=== PATIENT | female | born 1960 | race Caucasian/White ===

== ENCOUNTER → 2017-07-31 08:39 | Outpatient (CLI) | payer OTHER, SELFPAY | PROVIDERS: Family Provider Family Medicine; PCP Family Medicine; Visit Provider Nurse Practitioner Adult Health | DX: R07.9 Chest pain, unspecified (principal); R94.31 Abnormal electrocardiogram [ECG] [EKG] | CPT/HCPCS: 93225; 93226 ==

== ENCOUNTER → 2017-10-02 17:16 | Outpatient (CLI) | payer OTHER, SELFPAY ==
[2017-10-02 18:06] LABS: Ferritin 119 ng/mL (8-252)
== END ==
PROVIDERS: Family Provider Family Medicine; PCP Family Medicine; Visit Provider Internal Medicine Pulmonary Disease
DX: G25.81 Restless legs syndrome (principal); D64.9 Anemia, unspecified
CPT/HCPCS: 36415; 82728

== ENCOUNTER 2018-06-27 10:46 | Observation (INO) | payer OTHER, SELFPAY ==
[2018-06-27 10:47] VITALS: BP 119/83; PULSE 85; RESP 18; TEMP 37; O2SAT 100; BMI 39.4
--- NOTE | 2018-06-27 11:02 | CT_ITS ---
STUDY: CT ABDOMEN AND PELVIS WITH CONTRAST REASON FOR EXAM: Female, 57 years old. Abdominal pain. Fever. History of diverticulitis. RADIATION DOSAGE (If Supplied By Facility): CTDIvol = ( 16.87 ) mGy, DLP = ( 1195.9 ) mGycm TECHNIQUE: Transaxial images were obtained from the dome of the diaphragm to the symphysis pubis without oral contrast. 100 ml of Isovue 300 contrast was administered. Sagittal and coronal images were reconstructed. Individualized dose optimization techniques were used for this CT. COMPARISON: None. FINDINGS: Minimal degree of bibasilar atelectasis. The visualized portions of the heart are within normal limits. There is decreased attenuation of the liver consistent with steatosis. There is a 3.8 cm x 3.2 cm cyst in the left lobe of liver. Scattered subcentimeter cysts are also seen in the right lobe of the liver. Normal gallbladder and extrahepatic biliary system. Normal spleen. Normal pancreas. There is a small, circumscribed, smooth, low attenuation left adrenal mass, consistent with an adrenal adenoma. This measures 1.6 cm x 2.5 cm. Normal right adrenal gland. There is a 1.9 cm x 2.5 cm cyst in the posterior midportion of the left kidney. Normal left kidney. There is a small hiatal hernia. Normal small intestine. There is diverticulosis, with thickening of the colon wall, and pericolonic inflammation changes consistent with acute diverticulitis. The appendix is visualized and appears normal. Normal abdominal aorta. Normal inferior vena cava. There is borderline retroperitoneal lymphadenopathy with enlarged nodes no greater than 10mm in the short axis diameter. Normal urinary bladder. There is absence of the uterus consistent with a prior hysterectomy. Normal abdominal wall. Small bilateral benign-appearing axillary lymph nodes. Disc space narrowing and degeneration at the L5-S1 level. CT/Abdomen/Pelvis W IV Cont ONLY IMPRESSION: Fatty infiltration of the liver. Hepatic cysts. Findings in keeping with acute noncomplicated sigmoid diverticulitis. Findings suggestive of a left adrenal adenoma. Electronically Signed: Mateus Valentino MD at 13:38 EST , Service support ,
[2018-06-27] MEDS: 0.9% Normal Saline 1,000 ML 1000 ML IV (11:49)
[2018-06-27] MEDS: Morphine 4 MG/ML Syringe IV (11:49)
[2018-06-27] MEDS: Ondansetron 4 MG/2 ML Vial IV ×2 (11:49→15:26)
[2018-06-27 12:23] LABS: Absolute Lymphocyte Count 0.98 X10^3/ul (0.83-4.51); Absolute Neutrophil Count 6.2 X10^3/uL (2.0-7.7); Basophil# 0.02 X10^3/uL; Basophil% 0.3 % (0-1); Eosinophil# 0.12 X10^3/uL; Eosinophils% 1.5 % (0-5); Hematocrit 38.2 % (37-47); Hemoglobin 12.5 g/dl (12.0-15.0); Lymphocyte # 0.98 X10^3/ul (4.0); Lymphocyte % 12.5 % (19-41); Mean Corp Hgb Conc 32.7 g/gl (32-36); Mean Corpuscular Hgb 31.6 pg (27.0-32.0); Mean Corpuscular Volume 96.7 fL (81-99); Mean Platelet Vol. 11.6 fl (6.2-12.0); Monocyte# 0.56 X10^3/uL; Monocyte% 7.1 % (0-10); Neutrophil # 6.16 X10^3/uL (2.7-7.7); Neutrophil % 78.3 % (47-70); Platelet Count 175 K/mm3 (150-450); RBC Distribution Width CV 12.1 % (11.6-14.6); RBC Distribution Width SD 41.6 fl (35.1-43.9); Red Blood Count 3.95 M/mm3 (4.2-5.4); White Blood Count 7.9 K/mm3 (4.4-11.0)
[2018-06-27 12:27] LABS: Anion Gap 11 (5-15); BUN 11 mg/dL (7-18); BUN/Creat Ratio 18.4 RATIO (10-20); Calcium,Total 8.8 mg/dL (8.5-10.1); Chloride 108 mmol/L (98-107); EST Glomerular Filtration Rate 110 mL/min (>60); Est Glom Filt Rate - Afr Amer 133 mL/min (>60); Estimated Creatinine Clearance 86.61 ml/min; Glucose 96 mg/dL (74-106); Potassium 3.6 mmol/L (3.5-5.1); Sodium Level 143 mmol/L (136-145)
[2018-06-27 12:43] LABS: POSITIVE COUNT NO; POSITIVE DIFFERENTIAL NO; POSITIVE MORPHOLOGY NO
[2018-06-27 13:19] VITALS: RESP 16
--- NOTE | 2018-06-27 14:12 | ED.VISSUMM ---
- ER Visit Summary Date of Service: 06/27/18 Chief Complaint: Sent to ER because of worsening symptoms by PCP History of Present Illness: The patient is a 57 F who was prescribed Augmentin and took 3 doses of Augmentin for treatment of acute diverticulitis. She had episode of diverticulitis 4 months ago. She does report fever to 100.3 this morning. She does report nausea. She states earlier this week she had episode of diarrhea. She has had no further diarrhea. She denies black, maroon or blood in her stool. She denies hematemesis. She does report nausea. She denies headache, anesthesia, paresthesia or motor weakness. She denies ocular, visual or auditory symptoms. She denies cardiac respiratory symptoms. She does complain of pressure with urination. She denies paresthesia, anesthesia or motor weakness. She has a history of hypertension. She also reports allergy to metronidazole. Physical Examination: Vital signs noted. She is afebrile. She is tachycardic at 115. BMI 39.5. Head is atraumatic normocephalic. Pupils are equal round reactive. Extraocular muscles are intact. TMs are pearly white with landmarks noted. Nares patent with no drainage. Posterior pharynx without erythema or exudate. Uvula is midline. Mucosa is dry. There is no dysphonia or dysphasia. Trachea is midline. There is no stridor with auscultation of the neck. Heart is regular without murmur, gallop or rub. S1 and S2 are normal. Lungs are clear to auscultation with good movement of air bilaterally. Abdomen is remarkable for peritonitis. She has tenderness, guarding and rebound tenderness. Bowel sounds are diminished. Point of maximal tenderness left lower quadrant there is no CVA tenderness noted. There is no dermatologic lesions noted. Neuro exam is nonfocal. Please read note for complete detail. Test Results: CBC and BMP are unremarkable. CT of the abdomen reveals an uncomplicated acute sigmoid diverticulitis. There is also evidence of a probable adrenal adenoma. Emergency Department Course and Treatment: IV was established. She was treated with 4.5 g of Zosyn IV piggyback. She was given Zosyn for her nausea. He also received a fluid bolus. Because of peritonitis CT with IV contrast was obtained to assess for abscess. And to rule out perforation. Treatment Plan: IV fluids, IV antibiotics and admission for failed outpatient therapy Disposition: Medical surgical unit Impression: Acute sigmoid diverticulitis failed outpatient therapy History of hypertension This note was generated with [employer] dictation software. It may contain incorrect words, spelling, and punctuation that were not noted in review of the chart prior to signing ED Disposition - Plan for ED Patient: Referrals: Vaughn Mcneil MD [Primary Care Provider] -
[2018-06-27 14:26] VITALS: BMI 39.5
--- NOTE | 2018-06-27 14:27 | PCM.HP.STD ---
Problem List (1) GERD (gastroesophageal reflux disease) Status: Chronic Qualifiers: Esophagitis presence: esophagitis presence not specified Qualified Code(s): K21.9 - Gastro-esophageal reflux disease without esophagitis (2) Hyperlipemia Status: Chronic Qualifiers: Hyperlipidemia type: unspecified Qualified Code(s): E78.5 - Hyperlipidemia, unspecified (3) Carpal tunnel syndrome Status: Chronic Qualifiers: Laterality: unspecified laterality Qualified Code(s): G56.00 - Carpal tunnel syndrome, unspecified upper limb (4) Benign essential hypertension Status: Chronic (5) COPD (chronic obstructive pulmonary disease) Status: Chronic Qualifiers: Emphysema type: unspecified History of Present Illness Date of Admission: 06/27/18 Chief Complaint: Abdominal pain - 2 days The patient is a 57 year old F with PMHx of hypertension, COPD, not on oxygen, morbid obesity who comes in with complaints of abdominal discomfort which started 1 day before presentation and getting worse. She recently had a history of diverticulitis, treated 4 months ago, followed up with a primary care doctor. Patient went to see her primary care doctor for abdominal discomfort of one day duration. After the diarrhea she noticed blood when she wipes herself. This was preceded by diarrhea 1 week prior to presentation. The day after the diarrhea stopped, she started having abdominal discomfort, felt like bloating, radiated all over her abdomen and into her back. She reports that her temperature was elevated at 100.4F, he was prescribed Augmentin. She has been able to take only 2 doses. She continues to have nausea, worsening fever, reported fever of 100.3 this morning. She denied any chest pain or dizziness or palpitations. Temperature 98.6 F, heart rate 85, blood pressure 119/83, respiratory rate 18, SPO2 100% on room air. Admitting lab showed WBC 7.9, HB 12.5, Plt 175, BMP is unremarkable. CT scan of abdomen and pelvis shows liver steatosis, 3.8 cm x 3.2 cm liver cyst, multiple other liver cysts, adrenal adenoma, kidney cyst, acute sigmoid diverticulitis. Past Medical History Past Medical History (Chronic Problems): Chronic Problems (Last Updated 04/27/17 @ 15:58 by Arlette Jarvis) GERD (gastroesophageal reflux disease) (Chronic) Hyperlipemia (Chronic) COPD (chronic obstructive pulmonary disease) (Chronic) Carpal tunnel syndrome (Chronic) Benign essential hypertension (Chronic) Medical History: Medical History (Last Updated 04/27/17 @ 15:58 by Arlette Jarvis) GERD (gastroesophageal reflux disease) (Acute) K21.9 GI problem (Acute) R19.8 Hyperlipemia (Acute) E78.5 COPD (chronic obstructive pulmonary disease) (Acute) J44.9 Carpal tunnel syndrome (Acute) G56.00 Hx of thyroid cancer (Acute) Z85.850 2013 Benign essential hypertension (Chronic) I10 Allergies metronidazole [From Flagyl] Adverse Reaction (Verified 06/27/18 10:49) Nausea/Vom/Diarrhea Home Medications: Ambulatory Orders Medication Instructions Recorded Omeprazole [Prilosec] 20 mg PO DAILY 01/09/16 cholecalciferol (vitamin D3) 2,000 2,000 unit PO ONCE 04/27/17 unit capsule ramipril 10 mg capsule 10 mg PO DAILY cap 04/27/17 Atorvastatin Calcium [Lipitor] 20 mg PO DAILY 06/27/18 Hydrochlorothiazide [Hctz] 25 mg PO DAILY 06/27/18 Levothyroxine [Synthroid] 75 mcg PO WE 06/27/18 levothyroxine 150 mcg capsule 150 mcg PO SUMOTUTHFRSA 06/27/18 Surgical History: Surgical History (Last Updated 04/27/17 @ 16:35 by Arlette Jarvis) S/P excision of lipoma (Acute) Z98.890, Z86.018 Abdominal 02/2017 History of esophagogastroduodenoscopy (EGD) (Acute) Z98.890 2010 S/P colonoscopy (Acute) Z98.890 2010 S/P endometrial ablation (Acute) Z98.890 S/P (Acute) Z98.891 S/P thyroidectomy (Acute) E89.0 S/P hysterectomy (Acute) Z90.710 S/P appendectomy (Acute) Z90.49 Surgical History: appendectomy, hysterectomy, - - Post thyroidectomy, status post , status post endometrial ablation, status post colonoscopy, status post EGD, status post excision of lipoma Psychiatric History: No pertinent psych hx 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 Lives: Spouse/ Significant Other Smoking Status: Former smoker Tobacco Use: Non-smoker Alcohol: None Drugs: None - *Family History Maternal Family History: Family History (Last Updated 04/27/17 @ 16:53 by Arlette Jarvis) Mother Arthritis Breast cancer Heart disease Father Heart disease Hypertension Cancer CVA (cerebral vascular accident) Hyperlipemia Lung cancer History Items: Cancer - breast, Heart Disease Paternal Family History: Family History (Last Updated 04/27/17 @ 16:53 by Arlette Jarvis) Mother Arthritis Breast cancer Heart disease Father Heart disease Hypertension Cancer CVA (cerebral vascular accident) Hyperlipemia Lung cancer History Items: Heart Disease, Hypertension, Stroke Review of Systems Constitutional: Denies: Anorexia, Chills, Fever, Malaise, Weakness, Weight Change, Fatigue Eyes: Denies: Blurred vision, Cataracts, Conjunctivae Inflammation, Pain, Redness HEENT: Denies: Head Aches, Sinus Congestion, Sinus Drainage, Sore Throat Cardiovascular: Denies: Chest Pain, Claudication, Orthopnea, Palpitations, Paroxysmal Noc. Dyspnea Respiratory: Denies: Cough, Shortness of breath at rest, Shortness of breath upon exertion, Sputum production Gastrointestinal: Reports: Abdominal Pain, Nausea. Denies: Constipation, Diarrhea, Dyspepsia, Hematemesis, Hematochezia, Vomiting Genitourinary: Denies: Dysuria, Frequency, Incontinence Musculoskeletal: Denies: Joint Pain, Joint stiffness, Joint swelling, Joint Tenderness Skin: Denies: Dryness, Pruritis, Rash, Wounds Neurological: Denies: Difficulty swallowing, Focal weakness, Numbness, Tingling Psychiatric: Denies: Anxiety, Depression, Homicidal Ideations, Suicidal Ideations Hematologic/ Lymphatic: Denies: Easy Bruising, Easy Bleeding VTE Information - Inpt Only VTE Present on Admission: No VTE Pharm Prophylaxis ordered?: Yes - Physical Exam General: Alert, Oriented x3, Cooperative, No apparent distress, - - obese, not pale or jaundiced HEENT: Atraumatic, PERRLA, EOMI, Normocephalic Oral: Moist Mucosa Neck: Supple, No JVD, Negative Carotid Bruits Lungs: Clear to auscultation, Normal air movement Cardiovascular: Regular rate, Regular Rhythm, Normal S1, Normal S2, No murmurs Abdomen: Bowel Sounds Present, Soft, Non-Distended, No Hepato-splenomegaly, Tender - over the left lower quadrant, lower abdomen Extremities: No edema Skin: No rashes, No breakdown Musculoskeletal: No Tenderness to Palpation of Joints or Extremities Lymphatic: No Cervical, Supraclavicular, or Inguinal Adenopathy Neurological: Cranial nerves II-XII grossly intact, Neuro grossly intact Psych/Mental Status: Normal Affect, Appropriate Vital Signs Temp Pulse Resp BP Pulse Ox 98.6 F 85 16 119/83 H 100 06/27/18 10:47 06/27/18 10:47 06/27/18 13:19 06/27/18 10:47 06/27/18 10:47 Oxygen Delivery Method Room Air Weight: 101.151 kg Body Mass Index (BMI) 39.4 Laboratory Tests Past 24 Hrs 06/27/18 06/27/18 11:55 11:55 WBC 7.9 RBC 3.95 L Hgb 12.5 Hct 38.2 MCV 96.7 MCH 31.6 MCHC 32.7 RDW 12.1 RDW Differential 41.6 Plt Count 175 MPV 11.6 Immature Gran % (Auto) 0.300 Neut % (Auto) 78.3 H Lymph % (Auto) 12.5 L [place] % (Auto) 7.1 Eos % (Auto) 1.5 Baso % (Auto) 0.3 Absolute Neuts (auto) 6.2 Absolute Lymphs (auto) 0.98 Total Counted Not Reportable Sodium 143 Potassium 3.6 Chloride 108 H Carbon Dioxide 24.0 Anion Gap 11 BUN 11 Creatinine 0.60 Estim Creat Clear Calc 86.61 Est GFR (MDRD) Af Amer 133 Est GFR (MDRD) Non-Af 110 BUN/Creatinine Ratio 18.4 Glucose 96 Calcium 8.8 Assessment/Plan All Active Problems (Last Updated 04/27/17 @ 15:58 by Arlette Jarvis) S/P excision of lipoma (Acute) History of esophagogastroduodenoscopy (EGD) (Acute) S/P colonoscopy (Acute) S/P endometrial ablation (Acute) S/P (Acute) S/P thyroidectomy (Acute) S/P hysterectomy (Acute) S/P appendectomy (Acute) GI problem (Acute) Hx of thyroid cancer (Acute) 57 year old F with PMHx of hypertension, COPD, not on oxygen, morbid obesity, history of diverticulitis, who comes in with complaints of abdominal discomfort which started 1 day before presentation and getting worse. 1. Acute sigmoid diverticulitis, failed outpatient therapy, unable to keep food down, stable vitals, no leukocytosis Plan: Admit to [facility] floor, IV fluids, n.p.o., advance diet as can be tolerated, IV Cipro, IV Flagyl, gentle IV fluids, pain control with Tylenol, tramadol as needed, morphine as needed 2. Hypertension, controlled, on ramipril and hydrochlorothiazide, continue same 3. Hypothyroidism, levothyroxine, continue same 4. Hyperlipidemia, on statin, continue same 5. GERD, on PPI 6. Morbid obesity, BMI 40.0, diet and exercise recommended 7. DVT prophylaxis -Lovenox SC Code Visit Inpatient E&M: 82443 Init Hosp L2
[2018-06-27 15:27] VITALS: BP 118/69; PULSE 69; PULSE 75; RESP 17; RESP 18; O2SAT 100; O2SAT 110
[2018-06-27 15:39] VITALS: BP 151/87; PULSE 75; RESP 16; TEMP 37.1; O2SAT 98
[2018-06-27 15:40] VITALS: BMI 39.9
[2018-06-27] MEDS: 0.9% Normal Saline 1,000 ML 100 ML IV (16:00)
[2018-06-27] MEDS: Acetaminophen 325 MG Tablet 650 MG PO (19:49)
[2018-06-27] MEDS: traMADol 50 MG Tablet PO (20:44)
[2018-06-27 20:46] VITALS: BP 112/58; PULSE 87; RESP 18; TEMP 37.2; O2SAT 94
[2018-06-27] MEDS: Ciprofloxacin 200 MG/100 ML BAG 100 MG IV (21:26)
[2018-06-28] MEDS: 0.9% Normal Saline 1,000 ML 100 ML IV (03:02)
[2018-06-28 03:06] VITALS: BP 104/57; PULSE 71; RESP 18; TEMP 36.9; O2SAT 98
[2018-06-28 06:04] LABS: Absolute Lymphocyte Count 1.18 X10^3/ul (0.83-4.51); Absolute Neutrophil Count 4.5 X10^3/uL (2.0-7.7); Basophil# 0.02 X10^3/uL; Basophil% 0.3 % (0-1); Eosinophil# 0.11 X10^3/uL; Eosinophils% 1.7 % (0-5); Hematocrit 35.5 % (37-47); Hemoglobin 11.6 g/dl (12.0-15.0); Lymphocyte # 1.18 X10^3/ul (4.0); Lymphocyte % 18.7 % (19-41); Mean Corp Hgb Conc 32.7 g/gl (32-36); Mean Corpuscular Volume 97.8 fL (81-99); Mean Platelet Vol. 11.3 fl (6.2-12.0); Monocyte# 0.49 X10^3/uL; Monocyte% 7.8 % (0-10); Neutrophil # 4.51 X10^3/uL (2.7-7.7); Neutrophil % 71.3 % (47-70); Platelet Count 169 K/mm3 (150-450); RBC Distribution Width CV 11.9 % (11.6-14.6); RBC Distribution Width SD 40.7 fl (35.1-43.9); Red Blood Count 3.63 M/mm3 (4.2-5.4); White Blood Count 6.3 K/mm3 (4.4-11.0)
[2018-06-28 06:13] LABS: POSITIVE COUNT NO; POSITIVE DIFFERENTIAL NO; POSITIVE MORPHOLOGY NO
[2018-06-28 06:27] LABS: Anion Gap 9 (5-15); BUN 7 mg/dL (7-18); BUN/Creat Ratio 10.7 RATIO (10-20); Calcium,Total 8.4 mg/dL (8.5-10.1); Chloride 110 mmol/L (98-107); Creatinine, Serum 0.66 mg/dL (0.55-1.02); EST Glomerular Filtration Rate 99 mL/min (>60); Est Glom Filt Rate - Afr Amer 120 mL/min (>60); Estimated Creatinine Clearance 75.28 ml/min; Glucose 106 mg/dL (74-106); Potassium 4.1 mmol/L (3.5-5.1); Sodium Level 143 mmol/L (136-145)
[2018-06-28] MEDS: Levothyroxine 150 MCG Tablet PO (06:28)
[2018-06-28] MEDS: Acetaminophen 325 MG Tablet 650 MG PO (06:28)
[2018-06-28 07:31] VITALS: PULSE 82; RESP 20
[2018-06-28] MEDS: Ipratropium/Albuterol Sulfate 3 ML AMPUL.NEB INHALATION ×2 (07:31→11:09)
[2018-06-28 10:11] VITALS: BP 108/66; PULSE 66; RESP 18; TEMP 36.8; O2SAT 95
[2018-06-28] MEDS: Enoxaparin 40 MG/0.4 ML Syringe SC (10:17)
[2018-06-28] MEDS: Ramipril 10 MG Capsule PO (10:17)
[2018-06-28] MEDS: Pantoprazole Sodium 20 MG Tablet PO (10:20)
[2018-06-28] MEDS: traMADol 50 MG Tablet PO (10:20)
[2018-06-28 11:09] VITALS: PULSE 67; RESP 16
--- NOTE | 2018-06-28 11:12 | DCINST_ITS ---
You will use the following diet at home:: Clear liquid Your food should be the consistency of: Regular Your liquids should be the consistency of: Regular/Thin Discharge Activity: Return to Normal Activity Call your doctor if you observe: Fever of 101 or Higher, Shortness of breath, Dizziness, Chest pain Additional Instructions: She is to complete her course of augmentin given to her by her PCP and she also has Sh[place]ellan ODT that she will continue as needed for nausea Allergies/Adverse Reactions: Allergies metronidazole [From Flagyl] Adverse Reaction (Severe, Verified 06/28/18 00:18) Nausea/Vom/Diarrhea Medications to take at Discharge Omeprazole [Prilosec] 20 mg PO DAILY 01/09/16 cholecalciferol (vitamin D3) 2,000 unit capsule 2,000 unit PO ONCE 04/27/17 ramipril 10 mg capsule 10 mg PO DAILY cap 04/27/17 Atorvastatin Calcium [Lipitor] 20 mg PO DAILY 06/27/18 Hydrochlorothiazide [Hctz] 25 mg PO DAILY 06/27/18 Levothyroxine [Synthroid] 75 mcg PO WE 06/27/18 levothyroxine 150 mcg capsule 150 mcg PO SUMOTUTHFRSA 06/27/18 Primary Care Physician: Vaughn Mcneil MD [Primary Care Provider] - Please follow up with your Primary Care Physician in: 3-5 days Test Results: Test results from this visit will be discussed in further detail at your follow- up appointment, if applicable.
--- NOTE | 2018-06-28 11:13 | PCM.DC.SUM ---
Discharge Date and Diagnosis Date of Admission: 06/27/18 Date of Discharge: 06/28/18 - Secondary Discharge Diagnosis Chronic Problems (Last Updated 04/27/17 @ 15:58 by Arlette Jarvis) GERD (gastroesophageal reflux disease) (Chronic) Hyperlipemia (Chronic) COPD (chronic obstructive pulmonary disease) (Chronic) Carpal tunnel syndrome (Chronic) Benign essential hypertension (Chronic) Hospital Course and Treatment Imaging Results: CT Abd/pelvis: IMPRESSION: Fatty infiltration of the liver. Hepatic cysts. Findings in keeping with acute noncomplicated sigmoid diverticulitis. Findings suggestive of a left adrenal adenoma. Consults: None Operations: None Procedures: None Summary of Care Provided: Per HPI: The patient is a 57 year old F with PMHx of hypertension, COPD, not on oxygen, morbid obesity who comes in with complaints of abdominal discomfort which started 1 day before presentation and getting worse. She recently had a history of diverticulitis, treated 4 months ago, followed up with a primary care doctor. Patient went to see her primary care doctor for abdominal discomfort of one day duration. After the diarrhea she noticed blood when she wipes herself. This was preceded by diarrhea 1 week prior to presentation. The day after the diarrhea stopped, she started having abdominal discomfort, felt like bloating, radiated all over her abdomen and into her back. She reports that her temperature was elevated at 100.4F, he was prescribed Augmentin. She has been able to take only 2 doses. She continues to have nausea, worsening fever, reported fever of 100.3 this morning. She denied any chest pain or dizziness or palpitations. Temperature 98.6 F, heart rate 85, blood pressure 119/83, respiratory rate 18, SPO2 100% on room air. Admitting lab showed WBC 7.9, HB 12.5, Plt 175, BMP is unremarkable. CT scan of abdomen and pelvis shows liver steatosis, 3.8 cm x 3.2 cm liver cyst, multiple other liver cysts, adrenal adenoma, kidney cyst, acute sigmoid diverticulitis. Hospital Course: 1. Acute mild sigmoid [id number] female with her second recurrence of diverticulitis. Symptoms started 1 day prior to admission and she saw her PCP who gave her Augmentin and Zofran. She only took 2 or 3 doses of the Augmentin therefore not qualifying for failed outpatient therapy. She is currently doing well her nausea is under control and she has not had any episode of emesis. She is able to go home to resume her Augmentin and she has Zofran ODT at home. She did receive a dose of Invanz and a dose of Zosyn during her admission here. She is not on Cipro Flagyl because she has an intolerance to Flagyl. She is to follow-up with her primary care physician in 3-5 days. Of note she did not have a leukocytosis or fever during her stay. 2. her other medical diagnoses were evaluated and her home medications were continued where appropriate - Physical Exam General: Alert, Oriented x3, Cooperative, No apparent distress HEENT: Atraumatic, EOMI, Normocephalic Oral: Moist Mucosa Neck: Supple, No JVD, Trachea Midline Lungs: Clear to auscultation, Normal air movement, No rhonchi, No wheeze, No rales Cardiovascular: Regular rate, Regular Rhythm, Normal S1, Normal S2, No murmurs Abdomen: Soft, Non-Distended, No Hepato-splenomegaly, Tender - Mild lower abdomen Extremities: No edema, Capillary Refill Less than 3 Seconds Skin: No rashes, No breakdown Neurological: Neuro grossly intact, Sensory exam intact to light touch and pain Psych/Mental Status: Normal Affect, Appropriate Vital Signs Temp Pulse Resp BP Pulse Ox 98.2 F 66 18 108/66 95 06/28/18 10:11 06/28/18 10:11 06/28/18 10:11 06/28/18 10:11 06/28/18 10:11 Oxygen Delivery Method Room Air Weight: 225 lb 8.526 oz Body Mass Index (BMI) 39.9 Intake and Output for Last 24 Hours 06/26/18 06/27/18 06/28/18 23:59 23:59 23:59 Intake Total 76 / 76 1613 / 1613 Output Total 200 / 200 Balance -124 / -124 1613 / 1613 Laboratory Tests Past 24 Hrs 06/27/18 06/27/18 06/28/18 11:55 11:55 05:36 WBC 7.9 6.3 RBC 3.95 L 3.63 L Hgb 12.5 11.6 L Hct 38.2 35.5 L MCV 96.7 97.8 MCH 31.6 32.0 MCHC 32.7 32.7 RDW 12.1 11.9 RDW Differential 41.6 40.7 Plt Count 175 169 MPV 11.6 11.3 Immature Gran % (Auto) 0.300 0.200 Neut % (Auto) 78.3 H 71.3 H Lymph % (Auto) 12.5 L 18.7 L [place] % (Auto) 7.1 7.8 Eos % (Auto) 1.5 1.7 Baso % (Auto) 0.3 0.3 Absolute Neuts (auto) 6.2 4.5 Absolute Lymphs (auto) 0.98 1.18 Total Counted Not Reportable Not Reportable Sodium 143 Potassium 3.6 Chloride 108 H Carbon Dioxide 24.0 Anion Gap 11 BUN 11 Creatinine 0.60 Estim Creat Clear Calc 86.61 Est GFR (MDRD) Af Amer 133 Est GFR (MDRD) Non-Af 110 BUN/Creatinine Ratio 18.4 Glucose 96 Calcium 8.8 06/28/18 05:36 WBC RBC Hgb Hct MCV MCH MCHC RDW RDW Differential Plt Count MPV Immature Gran % (Auto) Neut % (Auto) Lymph % (Auto) [place] % (Auto) Eos % (Auto) Baso % (Auto) Absolute Neuts (auto) Absolute Lymphs (auto) Total Counted Sodium 143 Potassium 4.1 Chloride 110 H Carbon Dioxide 24.0 Anion Gap 9 BUN 7 Creatinine 0.66 Estim Creat Clear Calc 75.28 Est GFR (MDRD) Af Amer 120 Est GFR (MDRD) Non-Af 99 BUN/Creatinine Ratio 10.7 Glucose 106 Calcium 8.4 L Discharge Activity: Return to Normal Activity Call your doctor if you observe: Fever of 101 or Higher, Shortness of breath, Dizziness, Chest pain Home Medications: Medications to take at Discharge Omeprazole [Prilosec] 20 mg PO DAILY 01/09/16 cholecalciferol (vitamin D3) 2,000 unit capsule 2,000 unit PO ONCE 04/27/17 ramipril 10 mg capsule 10 mg PO DAILY cap 04/27/17 Atorvastatin Calcium [Lipitor] 20 mg PO DAILY 06/27/18 Hydrochlorothiazide [Hctz] 25 mg PO DAILY 06/27/18 Levothyroxine [Synthroid] 75 mcg PO WE 06/27/18 levothyroxine 150 mcg capsule 150 mcg PO SUMOTUTHFRSA 06/27/18 Primary Care Physician: Vaughn Mcneil MD [Primary Care Provider] - Please follow up with your Primary Care Physician in: 3-5 days Disposition: Home Minutes spent on discharge:: 35 Patient Condition:: Good Medical Necessity - Tobacco Use Smoking Status: Former smoker Tobacco Use: Non-smoker Meaningful Use Info Meaningful Use Diagnoses (Choose all that apply): None applicable Code Visit OBSV E&M: 85187 Observation care discharge
[2018-06-28 14:11] VITALS: BP 130/87; PULSE 71; RESP 18; TEMP 36.7; O2SAT 97
== END 2018-06-28 14:20 | disposition home or self-care (01) ==
LOC: ED 11:08 → MS3 15:24
PROVIDERS: Admitting Provider Internal Medicine; Emergency Provider Emergency Medicine; Family Provider Family Medicine; PCP Family Medicine; Visit Provider Family Medicine
DX: K57.32 Diverticulitis of large intestine without perforation or abscess without bleeding (principal); I10 Essential (primary) hypertension; K21.9 Gastro-esophageal reflux disease without esophagitis; E78.5 Hyperlipidemia, unspecified; J44.9 Chronic obstructive pulmonary disease, unspecified; E66.01 Morbid (severe) obesity due to excess calories; E03.9 Hypothyroidism, unspecified; Z79.899 Other long term (current) drug therapy; Z68.41 Body mass index [BMI] 40.0-44.9, adult; Z71.3 Dietary counseling and surveillance; Z85.850 Personal history of malignant neoplasm of thyroid; Z87.891 Personal history of nicotine dependence
CPT/HCPCS: 36415; 74177; 80048; 85025; 94640; 96361; 96365; 96366; 96367; 96372; 96375; 96376; 99218; 99285; J7030; Q9967; A4216; G0378; J0744; J2405

== ENCOUNTER → 2018-07-02 10:51 | Outpatient (CLI) | payer OTHER, SELFPAY ==
[2018-07-02 10:24] VITALS: BMI 39.9
[2018-07-02 12:52] LABS: Free T3 2.3 pg/mL (2.18-3.98); T4 Free Direct 1.39 ng/dL (0.76-1.46)
[2018-07-05 22:38] LABS: Anti-Thyroglobulin AB < 1.0 IU/mL (0.0-0.9); Thyroglobulin, Serum Qt. 0.2 ng/mL (1.5-38.5)
== END ==
PROVIDERS: Family Provider Family Medicine; PCP Family Medicine; Referring Provider Nurse Practitioner; Visit Provider Nurse Practitioner
DX: E03.9 Hypothyroidism, unspecified (principal)
CPT/HCPCS: 36415; 84432; 84439; 84443; 84481; 86800

== ENCOUNTER → 2018-07-04 11:22 | Outpatient (CLI) | payer OTHER, SELFPAY ==
[2018-07-02 10:24] VITALS: BMI 39.9
--- NOTE | 2018-07-04 11:24 | US_ITS ---
STUDY: THYROID ULTRASOUND REASON FOR EXAM: Female, 57 years old. History of thyroid cancer. Thyroidectomy 4 years ago. TECHNIQUE: Ultrasound evaluation of the thyroid was performed with real-time and static bateman-scale imaging. COMPARISON: None. FINDINGS: RIGHT LOBE: The right lobe of the thyroid gland is surgically absent. A 10 x 7 x 7 mm benign-appearing lymph node is seen in the right thyroid bed. LEFT LOBE: The left lobe of the thyroid gland is surgically absent. 2 small benign-appearing lymph nodes are seen in the left thyroid bed. ISTHMUS: The isthmus is not clearly visualized. 2.8 x 1.5 x 0.8 cm lymph node with a fatty hilus is seen in the tissues inferior to the right mandibular gland. US/Thyroid IMPRESSION: 1. Prior thyroidectomy. 2. A few benign-appearing cervical lymph nodes are identified, as noted. Electronically Signed: aKhlil Gunderson MD at 16:49 EST , Service support ,
== END ==
PROVIDERS: Family Provider Family Medicine; PCP Family Medicine; Referring Provider Nurse Practitioner; Visit Provider Nurse Practitioner
DX: E03.9 Hypothyroidism, unspecified (principal); Z85.850 Personal history of malignant neoplasm of thyroid
CPT/HCPCS: 76536

== ENCOUNTER → 2019-02-10 12:16 | Outpatient (CLI) | payer OTHER, SELFPAY ==
[2018-07-02 10:24] VITALS: BMI 39.9
[2019-02-10 14:05] LABS: T4 Free Direct 1.17 ng/dL (0.76-1.46)
[2019-02-12 12:46] LABS: Anti-Thyroglobulin AB < 1.0 IU/mL (0.0-0.9); Thyroglobulin, Serum Qt. 0.2 ng/mL (1.5-38.5)
== END ==
PROVIDERS: Family Provider Family Medicine; PCP Family Medicine; Referring Provider Nurse Practitioner; Visit Provider Nurse Practitioner
DX: Z85.850 Personal history of malignant neoplasm of thyroid (principal)
CPT/HCPCS: 36415; 84432; 84439; 84443; 86800

== ENCOUNTER → 2019-08-12 14:30 | Outpatient (CLI) | payer OTHER, SELFPAY ==
[2019-07-30 16:20] VITALS: BMI 38.9
--- NOTE | 2019-08-12 14:32 | ECHOD_ITS ---
Reason For Study: HTN Procedure This was a 2D Doppler, Color Flow transthoracic echocardiogram. Exam performed in department. Left Ventricle Normal LV size. Left ventricular systolic function is normal. The estimated ejection fraction is 65 %. Stage 2 diastolic dysfunction. No regional wall motion abnormalities noted. Right Ventricle Normal RV size. Normal systolic function. Atria Normal left atrium. Normal right atrium. Mitral Valve Normal mitral valve. Tricuspid Valve Normal tricuspid valve. Mild (1+) tricuspid valve insufficiency. Pulmonary artery systolic pressure is 28 mmHg. Aortic Valve Trisinus/trileaflet aortic valve. Pulmonic Valve Normal pulmonic valve. Great Vessels Normal aortic root. The pulmonary artery is normal size. Normal inferior vena cava. Pericardium/Pleural No pericardial effusion. MMode/2D Measurements & Calculations LVIDd: 4.4 cm IVSd: 0.86 cm Ao root diam: 3.3 cm LVIDs: 2.7 cm LVPWd: 0.89 cm RVDd: 2.8 cm FS: 39.4 % LAV(MOD-bp): 55.9 ml LA A4 area: 19.7 cm2 LA dimension(2D): 4.1 cm LAV(MOD-bp) Indexed: 27.7 ml/m2 LAV(MOD-sp2): 51.5 ml LAV(MOD-sp4): 57.9 ml RA A4 area: 11.4 cm2 Time Measurements MV dec time: 0.21 sec Doppler Measurements & Calculations MV E max rambo: 102.6 cm/sec Lat Peak E' Rambo: 12.3 cm/sec Med Peak E' Rambo: 12.2 cm/sec MV A max rambo: 58.3 cm/sec E/E' lat: 8.4 E/E' med: 8.4 MV E/A: 1.8 Ao V2 max: 170.5 cm/sec LV V1 max: 159.0 cm/sec PA V2 max: 97.1 cm/sec Ao max P.6 mmHg LV V1 max P.1 mmHg TR max rambo: 239.9 cm/sec TR max P.0 mmHg Interpretation Summary Normal LV size. Left ventricular systolic function is normal. The estimated ejection fraction is 65 %. Stage 2 diastolic dysfunction. Mild (1+) tricuspid valve insufficiency. Pulmonary artery systolic pressure is 28 mmHg. Ordering Physician: Killian Ball Referring Physician: EDISON REGALADO Performed By: Maranda Gay, ALISSA, RVT
== END ==
PROVIDERS: PCP Family Medicine; Referring Provider Internal Medicine Cardiovascular Disease; Visit Provider Internal Medicine Cardiovascular Disease
DX: I10 Essential (primary) hypertension (principal)
CPT/HCPCS: 93306

== ENCOUNTER → 2019-08-28 11:40 | Outpatient (CLI) | payer OTHER, SELFPAY ==
[2019-07-30 16:20] VITALS: BMI 38.9
[2019-08-28 12:40] LABS: T4 Free Direct 1.11 ng/dL (0.76-1.46); Thyroid Stim Hormone (TSH) 1.59 uIU/mL (0.358-3.74)
[2019-08-30 14:46] LABS: Thyroglobulin Antibody < 1.0 IU/mL (0.0-0.9)
== END ==
PROVIDERS: PCP Family Medicine; Referring Provider Nurse Practitioner; Visit Provider Nurse Practitioner
DX: Z85.850 Personal history of malignant neoplasm of thyroid (principal)
CPT/HCPCS: 36415; 84439; 84443; 86800

== ENCOUNTER → 2019-08-29 13:17 | Outpatient (CLI) | payer OTHER, SELFPAY ==
[2019-07-30 16:20] VITALS: BMI 38.9
--- NOTE | 2019-08-29 13:19 | US_ITS ---
STUDY: THYROID ULTRASOUND REASON FOR EXAM: Female, 58 years old. H/O THYROID CA - THYROID REMOVED TECHNIQUE: Ultrasound evaluation of the thyroid was performed with real-time and static bateman-scale imaging. COMPARISON: None. FINDINGS: The patient is status post total thyroidectomy. 2 lymph nodes are seen in the left cervical region. The larger measures 1.6 times by 0.6 times by 0.4 cm. US/Thyroid IMPRESSION: Status post total thyroidectomy. 2. Benign-appearing lymph nodes are seen in the left cervical region. Electronically Signed: Mateus Valentino, at 15:23 EDT , Service support ,
== END ==
PROVIDERS: PCP Family Medicine; Referring Provider Nurse Practitioner; Visit Provider Nurse Practitioner
DX: Z85.850 Personal history of malignant neoplasm of thyroid (principal)
CPT/HCPCS: 76536

== ENCOUNTER 2019-12-02 08:41 | Emergency (ER) | payer OTHER, SELFPAY ==
[2019-09-25 16:32] VITALS: BMI 38.9
[2019-12-02 08:43] VITALS: BP 159/96; PULSE 70; RESP 16; TEMP 37.2; BMI 38.9
--- NOTE | 2019-12-02 08:57 | EKG12_ITS ---
Test Reason : DIZZINESS Blood Pressure : / mmHG Vent. Rate : 068 BPM Atrial Rate : 068 BPM P-R Int : 162 ms QRS Dur : 092 ms QT Int : 410 ms P-R-T Axes : 043 -15 023 degrees QTc Int : 435 ms Normal sinus rhythm Normal ECG Confirmed by SRUTHI AQUINO, JESSICA ([id number]), food editor MARGARITA RODRIGUEZ ([id number]) on 12/05/2019 9:06:06 AM Referred By: COLTON Confirmed By:ESTHER NEGRO MD
--- NOTE | 2019-12-02 08:57 | RAD_ITS ---
STUDY: X-RAY CHEST REASON FOR EXAM: Female, 58 years old. CHEST PAIN, INTERMITTENT DIZZINESS X 1.5 WKS TECHNIQUE: PA and lateral views of the chest. COMPARISON: Comparison is made with prior study date January 09, 2016. FINDINGS: EKG electrodes are seen. Hyperinflation. The lungs are clear. There is no demonstrated pleural abnormality. Normal size heart. Normal mediastinum and ebenezer. Normal visualized pulmonary arteries. There is atherosclerotic calcification of the aortic arch with tortuosity. There is demineralization of the osseous structures. Normal visualized ribs, clavicles, and shoulders. There is no demonstrated abnormality of the visualized soft tissue structures of the upper abdomen. RAD/Chest PA and Lateral IMPRESSION: Hyperinflation. Electronically Signed: Mateus Valentino, at 10:04 EDT , Service support ,
--- NOTE | 2019-12-02 08:59 | ED.DCSUM_ITS ---
History of Present Illness Chief Complaint: Dizziness Informant: Patient Narrative: Patient is a 58-year-old female with a past medical history of hypertension, hypothyroidism who presents to the emergency department for lightheadedness episodes. She states that over the past week she had 2-3 episodes where she felt like she could potentially pass out. She did get a slight tightness in her chest during these episodes. They only lasted for a few seconds. The last episode she states that she was out in the garden whenever she moves from a sitting to standing position. She denies any recent changes with her blood pressure medications. She does feel slightly nauseous after the episodes but they resolve very quickly. She did contact her PCP who told her to come to the emerge department. She did not have any episodes today. At this time she is completely asymptomatic. She denies any history of heart attacks, strokes or DVT/PE. She has not had any leg swelling or calf pain. No recent illnesses including any nausea/vomiting or diarrhea. No cough, cold, congestion. No fevers or chills. She does occasionally get a slight pain in her back. She does not know any aggravating or relieving factors for this. It comes and goes randomly. She denies any pain currently. It is normally very mild. Past Medical History - Allergies and Home Meds Allergies/Adverse Reactions: Allergies metronidazole [From Flagyl] Adverse Reaction (Severe, Verified 12/02/19 08:45) Nausea/Vom/Diarrhea Primary Care Physician: Vaughn Mcneil MD [Primary Care Provider] - Prior records reviewed: Yes Past Medical History: - - COPD, hypertension, hyperlipidemia, hypothyroidism Surgical History: appendectomy, hysterectomy, - - Post thyroidectomy, status post , status post endometrial ablation, status post colonoscopy, status post EGD, status post excision of lipoma Smoking Status: Former smoker - Family History Maternal Family History: Family History (Last Reviewed 09/25/19 @ 16:[address] Oscar Hong MD) Mother Breast cancer Heart disease COPD (chronic obstructive pulmonary disease) Father Heart disease Hypertension CVA (cerebral vascular accident) Hyperlipemia Lung cancer Diabetes Sister Thyroid disorder Breast cancer Family History: Reports: Cancer - breast, Heart Disease Paternal Family History: Family History (Last Reviewed 09/25/19 @ 16:[address] Oscar Hong MD) Mother Breast cancer Heart disease COPD (chronic obstructive pulmonary disease) Father Heart disease Hypertension CVA (cerebral vascular accident) Hyperlipemia Lung cancer Diabetes Sister Thyroid disorder Breast cancer Family History: Reports: Heart Disease, Hypertension, Stroke Review of Systems All systems negative except as indicated General: Denies: Chills, Fever, Sweats Eyes: Denies: Visual changes - bilaterally, Diplopia ENT: Denies: Rhinorrhea, Sore throat Cardiovascular: Denies: Chest pain, Palpitations Respiratory: Denies: Dyspnea, Cough, Dyspnea on exertion Gastrointestinal: Reports: Melena, Hematochezia. Denies: Abdominal pain, Nausea, Vomiting, Diarrhea Genitourinary: Denies: Dysuria, Hematuria, Frequency Musculoskeletal: Denies: Back pain, Extremity Pain Skin: Denies: Rash, Wounds Neurological: Denies: Headache, Weakness, Numbness Physical Exam Vital Signs/Narrative: Vital Signs Temp Pulse Resp BP 12/02/19 08:43 99.0 F 70 16 159/96 H General: Well nourished, Well developed, No Acute Distress Head: Normocephalic, Atraumatic Eyes: Perrl, EOMI ENT: Moist mucous membranes, No rhinorrhea Neck: Supple, Nontender Cardiovascular: Regular rate, Regular rhythm, No murmurs, - - 2+ radial pulse bilateral Respiratory: No distress, CTA bilaterally, Chest nontender Abdomen: Soft, Nontender, Nondistended, Normal bowel sounds Back: Nontender, Normal Inspection Extremities: Nontender, No edema. Negative for: Edema, Calf Tenderness Skin: Normal color, No rash Neurological: Alert, Oriented x3, Cranial nerves II-XII grossly intact, Normal Strength, Normal Sensation Psychological: Normal affect, Normal Mood Diagnostic/Tx/Re-eval - EKG Initial EKG Interpretation: - - Rate of 68 bpm and normal sinus rhythm. Normal intervals. Normal axis. No ST elevations or depressions appreciated. No T wave abnormalities. No prior EKG for comparison. - Medical Decision Making Patient presents to the emergency department for episodes of lightheadedness. Does sound like it occurs whenever she is moving from sitting to standing positions. It resolves very quickly. Will check orthostatic vitals here in the emergency department. We will do a cardiac work-up. Low concern for ACS as well as PE/aortic dissection at this time given she is completely asymptomatic. These are very brief episodes. Patient's lab workup did not reveal any significant abnormality. She is not anemic. Troponin within normal limits. No electrolyte abnormality. She has not had any arrhythmias on teletypesetter monitor throughout ED stay. Orthostatic vitals were normal and she was asymptomatic. At this time will discharge patient home in stable condition. She states that she lost her PCP because of insurance purposes. We will give her referral from the no doc list. She does need to have close follow-up in the next 2 days. If she develops any chest pain or shortness of breath she is to return to the emergency department immediately. Did discuss possible hypotensive episodes given her blood pressure medication in warm weather out. She is to take her time when moving from a sitting to standing position. She understands and is agreeable with this plan. ED Disposition - Plan for ED Patient: Disposition: Home or Assisted Living Diagnosis: Episodic lightheadedness Instructions: ED Near-Fainting Uncertain Cause Referrals: Vaughn Mcneil MD [Primary Care Provider] - Ryan Frazier MD [STAFF PHYSICIAN] - 2 Days
[2019-12-02 09:10] VITALS: BP 140/82; BP 147/96; BP 155/92; PULSE 70; PULSE 75; PULSE 77
[2019-12-02 09:24] LABS: Absolute Lymphocyte Count 1.88 X10^3/uL (0.83-4.51); Basophil# 0.02 X10^3/uL; Basophil% 0.4 % (0-1); Eosinophil# 0.11 X10^3/uL; Hematocrit 38.3 % (37-47); Lymphocyte # 1.88 X10^3/ul (4.0); Lymphocyte % 34.1 % (19-41); Mean Corp Hgb Conc 33.9 g/dL (32-36); Mean Corpuscular Hgb 31.9 pg (27.0-32.0); Mean Corpuscular Volume 93.9 fL (81-99); Monocyte# 0.46 X10^3/uL; Monocyte% 8.3 % (0-10); NRBC Flagged by Analyzer 0 % (0-5); Neutrophil # 3.04 X10^3/uL (2.7-7.7); Platelet Count 246 K/mm3 (150-450); RBC Distribution Width CV 11.8 % (11.6-14.6); RBC Distribution Width SD 40.3 fl (35.1-43.9); Red Blood Count 4.08 M/mm3 (4.2-5.4); White Blood Count 5.5 K/mm3 (4.4-11.0)
[2019-12-02 09:33] LABS: Anion Gap 7 (5-15); BUN 17 mg/dL (7-18); BUN/Creat Ratio 23.6 RATIO (10-20); Calcium,Total 9.1 mg/dL (8.5-10.1); Chloride 102 mmol/L (98-107); Creatinine, Serum 0.72 mg/dL (0.55-1.02); EST Glomerular Filtration Rate 88 mL/min (>60); Est Glom Filt Rate - Afr Amer 107 mL/min (>60); Estimated Creatinine Clearance 71.31 ml/min; Glucose 104 mg/dL (74-106); Magnesium 2.3 mg/dL (1.6-2.6); Potassium 3.5 mmol/L (3.5-5.1); Sodium Level 138 mmol/L (136-145)
[2019-12-02 10:36] VITALS: BP 133/85; PULSE 71; RESP 18; O2SAT 94
== END 2019-12-02 10:37 | disposition home or self-care (01) ==
PROVIDERS: Emergency Provider Emergency Medicine; PCP Family Medicine
DX: R42 Dizziness and giddiness (principal); E03.9 Hypothyroidism, unspecified; E78.5 Hyperlipidemia, unspecified; I10 Essential (primary) hypertension; J44.9 Chronic obstructive pulmonary disease, unspecified; Z80.3 Family history of malignant neoplasm of breast; Z82.49 Family history of ischemic heart disease and other diseases of the circulatory system; Z87.891 Personal history of nicotine dependence; Z88.1 Allergy status to other antibiotic agents; Z90.710 Acquired absence of both cervix and uterus
CPT/HCPCS: 71046; 80048; 83735; 84484; 85025; 93005; 99284

== ENCOUNTER → 2020-02-17 14:25 | Outpatient (CLI) | payer OTHER, SELFPAY ==
[2020-02-17 13:34] VITALS: BMI 38.9
[2020-02-17 17:14] LABS: Cholesterol 181 mg/dL (200); High Density Lipoprotein 47 mg/dL; Triglycerides 75 mg/dL; Very Low Density Lipoprotein 15 mg/dL (5-40)
[2020-02-17 19:19] LABS: Hemoglobin A1c 5.4 % (3.8-5.6)
== END ==
PROVIDERS: Internal Medicine Cardiovascular Disease; PCP Internal Medicine; Referring Provider Internal Medicine; Visit Provider Internal Medicine
DX: E78.5 Hyperlipidemia, unspecified (principal); R73.03 Prediabetes
CPT/HCPCS: 36415; 80061; 83036

== ENCOUNTER → 2020-03-16 13:05 | Outpatient (CLI) | payer OTHER, SELFPAY ==
[2020-02-26 15:16] VITALS: BMI 40.4
--- NOTE | 2020-03-16 13:06 | CT_ITS ---
STUDY: LOW DOSE CT LUNG CANCER SCREENING REASON FOR EXAM: Female, 59 years old. LUNG CANCER SCREENING, QUIT SMOKING 3 YRS AGO, SMOKED FOR 33 YRS APPROX 1 PPD, HTN, THYROID CA, COPD, DH=[id number] RADIATION DOSAGE (If Supplied By Facility): CTDIvol = ( 4.02 ) mGy, DLP = ( 136.92 ) mGycm TECHNIQUE: No contrast was administered. Low dose technique was utilized (average mAS-38 and kVp 120). 1.25 mm axial source images with a slice interval of 1.25-mm were reconstructed in lung windows. 2.5 mm axial source images with a slice interval of 2.5-mm were reconstructed in lung windows. 5.0 mm axial source images with a slice interval of 5.0-mm were reconstructed in soft tissue windows. Nodule measured using lung windows on PACS and/or independent workstation with automated measurement of minimum and maximum diameter. Nodule measurement reported as average diameter rounded to the nearest whole number. Growth is defined as an increase ins size of greater than 1.5 mm. COMPARISON: None. NODULES: No suspicious nodules are seen. Emphysema: No significant emphysema. Endobronchial lesion: None Aorta: Unremarkable. Coronary arteries: Unremarkable Heart: Unremarkable Pulmonary artery: Unremarkable Mediastinal nodes: Remarkable Other chest and abdominal findings: There is a 3.8 cm x 3.1 cm cyst in the left lobe. CT/Low Dose CT Lung Screening IMPRESSION: Lung-RADS category 2 - Continue annual screening with LDCT in 12 months. IMPORTANT NOTES FOR USE: ACR Lung-RADS Version 1.0 Assessment Categories Release Date: September 15, 2013 Category: Coded 0-4 bases on nodule(s) with highest degree of suspicion. Negative screen is defined as categories 1 and 2; a positive screen is defined as categories 3 and 4. Category 3 and 4A nodules that are unchanged on interval CT should be coded as category 2, and individuals returned to screening in 12 months. Category 4X: Category 3 or 4 nodules with additional imaging findings that increase the suspicion of lung cancer, such as spiculation, GGN that doubles in size in 1 year, enlarged lymph notes, etc. Category Modifiers: S (significant finding unrelated to lung cancer) and C (prior history of treated lung cancer) may be added to the 0-4 Lung-RADS Electronically Signed: Mateus Valentino, at 13:38 EDT , Service support ,
== END ==
PROVIDERS: PCP Internal Medicine; Referring Provider Nurse Practitioner Family; Visit Provider Nurse Practitioner Family
DX: Z12.2 Encounter for screening for malignant neoplasm of respiratory organs (principal); Z87.891 Personal history of nicotine dependence
CPT/HCPCS: G0297

== ENCOUNTER → 2020-04-14 11:56 | Outpatient (CLI) | payer OTHER, SELFPAY ==
[2020-04-14 11:23] VITALS: BMI 40.9
[2020-04-14 15:36] LABS: Absolute Lymphocyte Count 2.41 X10^3/uL (0.83-4.51); Absolute Neutrophil Count 3.6 X10^3/uL (2.0-7.7); Basophil# 0.04 X10^3/uL; Basophil% 0.6 % (0-1); Eosinophil# 0.13 X10^3/uL; Hematocrit 40.4 % (37-47); Hemoglobin 13.4 g/dL (12.0-15.0); Lymphocyte # 2.41 X10^3/ul (4.0); Lymphocyte % 36.2 % (19-41); Mean Corp Hgb Conc 33.2 g/dL (32-36); Mean Corpuscular Hgb 32.2 pg (27.0-32.0); Mean Corpuscular Volume 97.1 fL (81-99); Mean Platelet Vol. 11.7 fl (6.2-12.0); Monocyte# 0.45 X10^3/uL; Monocyte% 6.8 % (0-10); NRBC Flagged by Analyzer 0 % (0-5); Neutrophil # 3.61 X10^3/uL (2.7-7.7); Neutrophil % 54.1 % (47-70); Platelet Count 284 K/mm3 (150-450); RBC Distribution Width CV 12.2 % (11.6-14.6); RBC Distribution Width SD 43.8 fl (35.1-43.9); Red Blood Count 4.16 M/mm3 (4.2-5.4); White Blood Count 6.7 K/mm3 (4.4-11.0)
[2020-04-14 15:58] LABS: ALB/GLOB Ratio 1.1 RATIO (0.9-2.4); AST(SGOT) 19 U/L (15-37); Alanine Aminotransfer ALT/SGPT 42 U/L (13-56); Albumin, Serum 4.1 g/dL (3.2-5.0); Alkaline Phosphatase 75 U/L (45-117); Anion Gap 6 (5-15); BUN 15 mg/dL (7-18); BUN/Creat Ratio 18.6 RATIO (10-20); Calcium,Total 9.5 mg/dL (8.5-10.1); Chloride 106 mmol/L (98-107); Creatinine, Serum 0.81 mg/dL (0.55-1.02); EST Glomerular Filtration Rate 77 mL/min (>60); Est Glom Filt Rate - Afr Amer 94 mL/min (>60); Globulin 3.8 g/dL (2.2-4.2); Glucose 95 mg/dL (74-106); Potassium 3.9 mmol/L (3.5-5.1); Protein, Total 7.9 g/dL (6.4-8.2); Sodium Level 139 mmol/L (136-145)
== END ==
PROVIDERS: PCP Internal Medicine; Referring Provider Internal Medicine; Visit Provider Internal Medicine
DX: K57.92 Diverticulitis of intestine, part unspecified, without perforation or abscess without bleeding (principal)
CPT/HCPCS: 36415; 80053; 85025

== ENCOUNTER → 2020-04-14 12:33 | Outpatient (CLI) | payer OTHER, SELFPAY ==
[2020-04-14 11:23] VITALS: BMI 40.9
--- NOTE | 2020-04-14 12:36 | CT_ITS ---
STUDY: CT ABDOMEN AND PELVIS WITH CONTRAST REASON FOR EXAM: Female, 59 years old. Diverticulitis RADIATION DOSAGE (If Supplied By Facility): DLP = ( 1135.70 ) mGycm TECHNIQUE: Transaxial images were obtained from the dome of the diaphragm to the symphysis pubis with oral contrast. Gastrografin and amp; 100mL Isovue-300 contrast was administered. Sagittal and coronal images were reconstructed. Individualized dose optimization techniques were used for this CT. COMPARISON: CT abdomen and pelvis 06/27/2018 FINDINGS: The visualized lung bases are clear. The visualized portions of the heart and pericardium are within normal limits. There are no calcified gallstones present. There is decreased hepatic attenuation. The liver is enlarged. There are no suspicious hepatic lesions. Hepatic cysts are present. The spleen is normal in size. The pancreas is within normal limits. There is a left adrenal 2 cm adenoma. The right adrenal gland is normal. There are no obstructing renal stones. There is no hydronephrosis. There are no focal renal lesions. There is a right renal upper pole 2.2 cm cyst. Normal visualized stomach. There is no bowel obstruction or inflammation. Colonic diverticulosis is present without evidence of inflammation. The aorta is normal in caliber. There is no abdominal or pelvic free air, free fluid, fluid collection or lymphadenopathy. There are no destructive osseous lesions. CT/Abdomen/Pelvis WITH Contrast IMPRESSION: No acute abdominal or pelvic pathology. Colonic diverticulosis without evidence of inflammation. Hepatomegaly and fatty liver. Electronically Signed: Oscar Sanchez, at 18:37 EST Tel , Service support ,
== END ==
PROVIDERS: PCP Internal Medicine; Referring Provider Internal Medicine; Visit Provider Internal Medicine
DX: K57.92 Diverticulitis of intestine, part unspecified, without perforation or abscess without bleeding (principal)
CPT/HCPCS: 74177; Q9967

== ENCOUNTER 2020-04-16 06:09 | Emergency (ER) | payer OTHER, SELFPAY ==
[2020-04-14 11:23] VITALS: BMI 40.9
[2020-04-16 06:10] VITALS: BP 129/89; PULSE 69; RESP 18; TEMP 36.6; O2SAT 99; BMI 44.4
--- NOTE | 2020-04-16 07:02 | ED.VIS.GEN ---
History of Present Illness Chief Complaint: Back Informant: Patient Onset: Days Context: Sudden Onset Timing: Continuous, Waxes and wanes Quality: Pain Location: Central low back Current Severity: Mild Maximum Severity: Severe Worsened by: Movement Relieved by: Nothing Associated Symptoms: Urgency and chills Narrative: Patient is a 59-year-old woman who has history of hypercholesterolemia, diverticulosis/diverticulitis and is prediabetic who presents with chief complaint of atraumatic central low back pain that started several days ago. She was seen by Dr. Willow Ruano April 14 and had blood work and a CT of the abdomen and pelvis with IV and p.o. contrast. CBC and differential were unremarkable. Comprehensive metabolic panel was unremarkable. CT of the abdomen pelvis with IV and p.o. contrast revealed evidence of diverticulosis with no evidence of diverticulitis or any inflammatory process. Her main complaint when she was seen on Sunday was right lower quadrant abdominal pain. She is status post appendectomy. She now complains of urgency/frequency. There is no history of renal or ureterolithiasis. She does report diaphoresis and chills. There is no history of trauma. She has not noted a rash. She states she cannot stand because the pressure causes her significant discomfort. She denies radicular pain. She denies saddle paresthesia or anesthesia. She denies bowel or bladder dysfunction. Prior similar symptoms: Yes Recent Illness/Hospitalization: Yes - Seen on Sunday for right lower quadrant abdominal pain - Past Medical History (1) Diverticulosis Status: Acute (2) Benign essential hypertension Status: Chronic (3) COPD (chronic obstructive pulmonary disease) Status: Chronic (4) GERD (gastroesophageal reflux disease) Status: Chronic (5) Hyperlipidemia Status: Chronic (6) Hypothyroidism Status: Chronic (7) BESSIE on CPAP Status: Chronic Past Medical History - Allergies and Home Meds Allergies/Adverse Reactions: Allergies metronidazole [From Flagyl] Adverse Reaction (Severe, Verified 04/16/20 06:10) Nausea/Vom/Diarrhea Primary Care Physician: Tayler Cedeño MD [Primary Care Provider] - Prior records reviewed: Yes - Need records through her my chart account Surgical History: appendectomy, hysterectomy, - - Post thyroidectomy, status post , status post endometrial ablation, status post colonoscopy, status post EGD, status post excision of lipoma Lives: Spouse/ Significant Other Smoking Status: Former smoker Alcohol: Rare Drugs: None - Family History Maternal Family History: Family History (Last Reviewed 04/14/20 @ 11:23 by Palmira Moss) Mother Breast cancer Heart disease COPD (chronic obstructive pulmonary disease) Father Heart disease Hypertension CVA (cerebral vascular accident) Hyperlipemia Lung cancer Diabetes Sister Thyroid disorder Breast cancer Family History: Reports: Cancer - breast, Heart Disease Paternal Family History: Family History (Last Reviewed 04/14/20 @ 11:23 by Palmira Moss) Mother Breast cancer Heart disease COPD (chronic obstructive pulmonary disease) Father Heart disease Hypertension CVA (cerebral vascular accident) Hyperlipemia Lung cancer Diabetes Sister Thyroid disorder Breast cancer Family History: Reports: Heart Disease, Hypertension, Stroke Review of Systems General: Reports: Chills, Fever, Malaise, Subjective, Sweats. Denies: Weight loss Eyes: Denies: Visual changes - bilaterally, Blurred Vision - bilaterally ENT: Denies: Rhinorrhea, Sore throat Cardiovascular: Denies: Chest pain, Palpitations Respiratory: Denies: Dyspnea, Cough, Sputum, Dyspnea on exertion Gastrointestinal: Reports: Abdominal pain, Nausea, Diarrhea. Denies: Vomiting, Constipation, Melena, Hematochezia Genitourinary: Reports: - - Patient reports urgency.. Denies: Dysuria, Hematuria, Frequency Musculoskeletal: Reports: Back pain. Denies: Myalgias, Arthralgias, Neck pain, Swelling, Extremity Pain Skin: Denies: Rash, Wounds Neurological: Denies: Headache, Weakness, Parasthesia, Numbness Endocrine: Denies: Polyuria, Polydipsia Hematologic: Denies: Easy bruising, Easy bleeding Physical Exam Vital Signs/Narrative: Vital Signs Temp Pulse Resp BP Pulse Ox 04/16/20 06:10 97.9 F 69 18 129/89 H 99 Inital Vital Signs reviewed: Yes General: Well nourished, Well developed, Obese, Acute Distress Head: Normocephalic, Atraumatic Eyes: Perrl, EOMI. Negative for: Pale conjunctiva, Scleral icterus ENT: Moist mucous membranes, No rhinorrhea, TM's clear. Negative for: Dry mucous membranes Neck: Supple, Nontender, No lymphadenopathy, No JVD Cardiovascular: Regular rate, Regular rhythm, No murmurs, Normal S1, Normal S2 Respiratory: No distress, CTA bilaterally, Chest nontender Abdomen: Soft, Nontender, Nondistended, Normal bowel sounds, No masses Back: Spinal tenderness, - - And has discomfort right and left paralumbar region and significant tenderness midline over the lumbar area.. Negative for: Nontender Extremities: Nontender, No edema, - - There is no asymmetry, swelling, discoloration, leg vein distention, palpable cords or tenderness along the distribution of the deep venous system. No problem Skin: Normal color, No rash Neurological: Alert, Oriented x3, Cranial nerves II-XII grossly intact, Normal Strength, Normal Sensation, Normal DTR Psychological: Normal affect Diagnostic/Tx/Re-eval Laboratory Results 04/16/20 04/16/20 04/16/20 06:15 06:15 08:28 WBC 5.2 RBC 4.10 L Hgb 13.4 Hct 39.7 MCV 96.8 MCH 32.7 H MCHC 33.8 RDW Std Deviation 42.1 RDW Coeff of [place] 11.8 Plt Count 240 MPV 11.2 Immature Gran % (Auto) 0.400 Neut % (Auto) 58.6 Lymph % (Auto) 32.6 [place] % (Auto) 6.2 Eos % (Auto) 1.6 Baso % (Auto) 0.6 Absolute Neuts (auto) 3.0 Absolute Lymphs (auto) 1.68 Nucleated RBC % 0 ESR 19 Sodium 140 Potassium 4.0 Chloride 108 H Carbon Dioxide 26.0 Anion Gap 6 BUN 11 Creatinine 0.78 Estim Creat Clear Calc 65.03 Est GFR (MDRD) Af Amer 98 Est GFR (MDRD) Non-Af 81 BUN/Creatinine Ratio 14.2 Glucose 118 H Calcium 8.9 Urine Color Yellow Urine Clarity Sl. Cloudy Urine pH 5.0 Ur Specific [place] 1.025 Urine Protein 15 H Urine Glucose (UA) Normal Urine Ketones 5 H Urine Occult Blood Negative Urine Nitrite Negative Urine Bilirubin Negative Urine Urobilinogen Normal Ur Leukocyte Esterase 25 H Urine RBC 0 SEEN Urine WBC 0-5 SEEN Ur Squamous Epith Cells 5-10 SEEN Urine Bacteria RARE Urine Mucus 0 SEEN CBC, ESR are unremarkable. Urine reveals no evidence of urinary tract infection. Electrolyte function and renal function is normal. With a CT of the abdomen pelvis with IV contrast p.o. contrast on interpreted by radiologist as negative imaging was not repeated. Patient was told the cause of her low back pain is muscle skeletal in etiology. Based on her history and physical exam there is no evidence of acute herniation or cauda equina. With a normal white count and ESR and CAT scan that was performed less than 48 hours ago there is no evidence of osteomyelitis, discitis and doubt epidural abscess. Plan is to discharge to home with opiate analgesia. - Medical Decision Making With complaint of fever and chills and now severe central back pain need to rule out infectious etiology versus mechanical etiology. Will repeat labs and determine if there is any change from 04/14/2020. Patient was medicated with Zofran for her nausea and morphine for her pain. ED Disposition - Plan for ED Patient: Disposition: Home or Assisted Living Diagnosis: Low back pain, Diverticulosis Instructions: ED Back Pain Acute or Chronic, ED Back Care Tips Prescriptions: Hydrocodone Bitart/Apap 5-325 [[place] 5MG-325MG] 1 tablet PO Q6H PRN PRN 3 Days #10 tablet PRN Reason: Pain Transmission Status: Sent to [facility] Referrals: Tayler Cedeño MD [Primary Care Provider] - 3-5 Days if not improving
[2020-04-16 07:11] LABS: Absolute Lymphocyte Count 1.68 X10^3/uL (0.83-4.51); Basophil# 0.03 X10^3/uL; Basophil% 0.6 % (0-1); Eosinophil# 0.08 X10^3/uL; Eosinophils% 1.6 % (0-5); Hematocrit 39.7 % (37-47); Hemoglobin 13.4 g/dL (12.0-15.0); Lymphocyte # 1.68 X10^3/ul (4.0); Lymphocyte % 32.6 % (19-41); Mean Corp Hgb Conc 33.8 g/dL (32-36); Mean Corpuscular Hgb 32.7 pg (27.0-32.0); Mean Corpuscular Volume 96.8 fL (81-99); Mean Platelet Vol. 11.2 fl (6.2-12.0); Monocyte# 0.32 X10^3/uL; Monocyte% 6.2 % (0-10); NRBC Flagged by Analyzer 0 % (0-5); Neutrophil # 3.03 X10^3/uL (2.7-7.7); Neutrophil % 58.6 % (47-70); Platelet Count 240 K/mm3 (150-450); RBC Distribution Width CV 11.8 % (11.6-14.6); RBC Distribution Width SD 42.1 fl (35.1-43.9); White Blood Count 5.2 K/mm3 (4.4-11.0)
[2020-04-16] MEDS: Ondansetron 4 MG/2 ML Vial IV (07:17)
[2020-04-16] MEDS: Morphine 4 MG/ML Syringe IV (07:17)
[2020-04-16 07:21] LABS: Anion Gap 6 (5-15); BUN 11 mg/dL (7-18); BUN/Creat Ratio 14.2 RATIO (10-20); Calcium,Total 8.9 mg/dL (8.5-10.1); Chloride 108 mmol/L (98-107); Creatinine, Serum 0.78 mg/dL (0.55-1.02); EST Glomerular Filtration Rate 81 mL/min (>60); Est Glom Filt Rate - Afr Amer 98 mL/min (>60); Estimated Creatinine Clearance 65.03 ml/min; Glucose 118 mg/dL (74-106); Sodium Level 140 mmol/L (136-145)
[2020-04-16 07:25] LABS: Erythrocyte Sedimentation Rate 19 mm/hr (0-30)
[2020-04-16 08:30] LABS: Mucous, Urine 0 SEEN /hpf (<or=2+); Red Blood Cells-Urine 0 SEEN /hpf (0-5)
[2020-04-16 08:35] LABS: Color, Urine Yellow (Yellow); Glucose, Dipstick Normal (Normal); Ketone-Dipstick 5 mg/dl (Negative); Leukocyte Esterase-Dipstick 25 /ul (Negative); Nitrite-Dipstick Negative (Negative); Occult Blood-Urine Negative /ul (Negative); Protein-Dipstick 15 mg/dl (Negative); Specific Gravity, Urine 1.025 (1.002-1.030); Urine Bilirubin Dipstick Negative (Negative); Urine Clarity Sl. Cloudy (Clear); Urine Urobilinogen Normal (Normal)
[2020-04-16 09:04] LABS: Squamous Epithelial Cells - UA 5-10 SEEN /hpf (5-10); White Blood Cells 0-5 SEEN /hpf (0-5)
[2020-04-16 09:05] LABS: Bacteria RARE /hpf (None Seen)
[2020-04-16 09:08] VITALS: BP 149/85; PULSE 62; RESP 12; O2SAT 97
[2020-04-16 09:32] VITALS: BP 148/76; PULSE 63; RESP 16; O2SAT 97
== END 2020-04-16 10:00 | disposition home or self-care (01) ==
PROVIDERS: Emergency Provider Emergency Medicine; PCP Internal Medicine
DX: M54.5 Low back pain (principal); K57.90 Diverticulosis of intestine, part unspecified, without perforation or abscess without bleeding; E78.5 Hyperlipidemia, unspecified; I10 Essential (primary) hypertension; K21.9 Gastro-esophageal reflux disease without esophagitis; E03.9 Hypothyroidism, unspecified; G47.33 Obstructive sleep apnea (adult) (pediatric); J44.9 Chronic obstructive pulmonary disease, unspecified; Z80.1 Family history of malignant neoplasm of trachea, bronchus and lung; Z80.3 Family history of malignant neoplasm of breast; Z82.49 Family history of ischemic heart disease and other diseases of the circulatory system; Z87.891 Personal history of nicotine dependence; Z88.1 Allergy status to other antibiotic agents; Z90.710 Acquired absence of both cervix and uterus; Z98.890 Other specified postprocedural states; E78.00 Pure hypercholesterolemia, unspecified
CPT/HCPCS: 80048; 81001; 85025; 85652; 96374; 96375; 99285; A4216; J2405

== ENCOUNTER → 2020-04-19 15:58 | Outpatient (CLI) | payer OTHER, SELFPAY ==
--- NOTE | 2020-04-19 16:00 | RAD_ITS ---
HISTORY: low back pain, started today, no injury EXAMINATION/TECHNIQUE: XR Spine Lumbar Min 4 Views: COMPARISON: CT of the abdomen and pelvis on April 14, 2020 FINDINGS: VERTEBRAE: Preserved vertebral body height. No fracture. No spondylolisthesis. No spondylolysis Degenerative changes of the posterior elements. Preservation of the normal lumbar lordosis. Minimal dextroscoliosis DISCS: Degenerative changes are noted. Decreased disc space L5-S1 with vacuum disc INCLUDED ABDOMEN: There is contrast seen within the colon compatible with antecedent CT examination with contrast obtained on April 14, 2020. Retained fecal material in the colon RAD/L/S Spine Min 4 Views IMPRESSION: Degenerative changes. No acute fracture or spondylolisthesis. at 0653 Reported and signed by: Roselyn Harding DO Electronically Signed: Roselyn Harding DO at 6:52 EST Tel , Service support ,
== END ==
PROVIDERS: PCP Internal Medicine; Referring Provider Internal Medicine; Visit Provider Internal Medicine
DX: M54.9 Dorsalgia, unspecified (principal)
CPT/HCPCS: 72110

== ENCOUNTER → 2020-06-03 16:41 | Outpatient (CLI) | payer OTHER, SELFPAY ==
[2020-05-18 13:27] VITALS: BMI 41.8
--- NOTE | 2020-06-03 16:48 | MRI_ITS ---
STUDY: MRI LUMBAR SPINE WITHOUT CONTRAST REASON FOR EXAM: Female, 59 years old. low back pain radiates into legs bilaterally, tingling in hands and feet x 1 yr, radiculopathy TECHNIQUE: Standardized fat and water weighted pulse sequences were obtained in the sagittal and axial planes. COMPARISON: Lumbar spine x-rays 04/19/2020 FINDINGS: T12-L1: Normal endplates. Normal disc height, hydration and morphology. Normal bilateral facet joints. Normal central canal and bilateral lateral recesses. Normal bilateral intervertebral neural foramina. Normal lumbar lordosis. There is no substantial scoliosis. Normal conus medullaris that terminates at L1 L1-2: Normal endplates. Normal disc height, hydration and morphology. Normal bilateral facet joints. Normal central canal and bilateral lateral recesses. Normal bilateral intervertebral neural foramina. L2-3: Normal endplates. Normal disc height, desiccation and minor annular bulge.. Normal bilateral facet joints. Normal central canal and bilateral lateral recesses. Normal bilateral intervertebral neural foramina. L3-4: Normal endplates. Normal disc height, desiccation and minimal annular bulge.. Normal bilateral facet joints. Normal central canal and bilateral lateral recesses. Normal bilateral intervertebral neural foramina. L4-5: Grade 1 spondylolisthesis. Normal disc space height with desiccation of disc and minor bulging disc osteophyte complex.. Bilateral facet arthropathy.. Normal central canal and bilateral lateral recesses. Mild to moderate bilateral neuroforaminal stenosis. L5-S1: Normal endplates. Normal disc height, desiccation and mild annular bulge. Bilateral facet arthropathy.. Normal central canal and bilateral lateral recesses. Moderate right neuroforaminal stenosis and mild narrowing on the left. Normal visualized sacral ala. Normal visualized paraspinous soft tissue structures. No significant change since prior exam given differences in imaging techniques MRI/Spine Lumbar (Routine) IMPRESSION: No evidence for acute fracture or other significant bony pathology. Mild spondylosis and spinal stenosis at L4-5 and L5-S1 secondary to disc disease and bony hypertrophy. Findings as above Electronically Signed: Oscar Nelson MD at 19:09 EST , Service support ,
== END ==
PROVIDERS: PCP Internal Medicine; Referring Provider Internal Medicine; Visit Provider Internal Medicine
DX: M54.16 Radiculopathy, lumbar region (principal)
CPT/HCPCS: 72148

== ENCOUNTER 2020-08-13 14:23 | Outpatient (RCR) | payer OTHER, SELFPAY ==
[2020-05-18 13:27] VITALS: BMI 41.8
== END 2020-10-26 23:59 ==
LOC: IMMUN 14:23
PROVIDERS: PCP Internal Medicine; Visit Provider Family Medicine
DX: Z23 Encounter for immunization (principal)
CPT/HCPCS: 0001A; 0002A; 91300

== ENCOUNTER → 2020-10-05 16:40 | Outpatient (CLI) | payer OTHER, SELFPAY ==
[2020-08-18 16:15] VITALS: BMI 41.8
--- NOTE | 2020-10-05 16:30 | BI_ITS ---
MAMMOGRAPHY - BILATERAL SCREENING 3-D TOMOSYNTHESIS REASON FOR EXAM: Female, 59 years old. Routine screening PERTINENT HISTORY: No significant family history. TECHNIQUE: 2-D mammograms and 3-D Tomosynthesis of the breast (s) were performed. CAD was performed. COMPARISON: 07/23/2019 FINDINGS: The breast composition is composed of scattered fibroglandular density. Scattered benign calcifications are seen. No dense spiculated masses or suspicious microcalcifications are identified. No architectural distortion is identified. There is no skin thickening or retraction. There has been no significant change since the prior study. BI/SCRN MAMM (CAD)W/MIGUEL BILAT IMPRESSION: No mammographic signs of malignancy. Routine yearly mammograms recommended. ASSESSMENT CATEGORY: BIRADS Category 1: Negative. A letter regarding these results will be sent to the patient by the facility within 30 days. FOLLOW UP RECOMMENDATION: Yearly follow up mammogram recommended. (A) Approximately 10% of breast cancers are not detected by mammography. A normal mammogram should not delay biopsy of a clinically suspicious abnormality. Electronically Signed: Kahlil Thakkar MD at 7:51 EDT , Service support ,
== END ==
PROVIDERS: PCP Internal Medicine; Referring Provider Internal Medicine; Visit Provider Internal Medicine
DX: Z12.31 Encounter for screening mammogram for malignant neoplasm of breast (principal)
CPT/HCPCS: 77063; 77067

== ENCOUNTER → 2020-11-29 11:38 | Outpatient (CLI) | payer OTHER, SELFPAY ==
[2020-11-24 16:30] VITALS: BMI 41.8
[2020-11-29 12:57] LABS: Absolute Lymphocyte Count 2.54 X10^3/uL (0.83-4.51); Absolute Neutrophil Count 3.1 X10^3/uL (2.0-7.7); Basophil# 0.04 X10^3/uL; Basophil% 0.6 % (0-1); Eosinophil# 0.13 X10^3/uL; Eosinophils% 2.1 % (0-5); Hematocrit 37.4 % (37-47); Hemoglobin 12.5 g/dL (12.0-15.0); Lymphocyte # 2.54 X10^3/ul (0.83-4.51); Lymphocyte % 40.5 % (19-41); Mean Corp Hgb Conc 33.4 g/dL (32-36); Mean Corpuscular Volume 95.7 fL (81-99); Mean Platelet Vol. 11.5 fl (6.2-12.0); Monocyte# 0.48 X10^3/uL; Monocyte% 7.7 % (0-10); NRBC Flagged by Analyzer 0 % (0-5); Neutrophil # 3.06 X10^3/uL (2.7-7.7); Neutrophil % 48.8 % (47-70); Platelet Count 253 K/mm3 (150-450); RBC Distribution Width CV 12.3 % (11.6-14.6); RBC Distribution Width SD 43.1 fl (35.1-43.9); Red Blood Count 3.91 M/mm3 (4.2-5.4); White Blood Count 6.3 K/mm3 (4.4-11.0)
[2020-11-29 13:42] LABS: AST(SGOT) 27 U/L (15-37); Alanine Aminotransfer ALT/SGPT 69 U/L (13-56); Albumin, Serum 3.5 g/dL (3.2-5.0); Alkaline Phosphatase 75 U/L (45-117); Anion Gap 5 (5-15); BUN 15 mg/dL (7-18); Calcium,Total 8.7 mg/dL (8.5-10.1); Chloride 106 mmol/L (98-107); Creatinine, Serum 0.68 mg/dL (0.55-1.02); EST Glomerular Filtration Rate 94 mL/min (>60); Est Glom Filt Rate - Afr Amer 113 mL/min (>60); Globulin 3.4 g/dL (2.2-4.2); Glucose 89 mg/dL (74-106); Potassium 3.8 mmol/L (3.5-5.1); Protein, Total 6.9 g/dL (6.4-8.2); Sodium Level 140 mmol/L (136-145)
== END ==
PROVIDERS: PCP Internal Medicine; Referring Provider Internal Medicine; Visit Provider Internal Medicine
DX: I10 Essential (primary) hypertension (principal)
CPT/HCPCS: 36415; 80053; 85025

== ENCOUNTER 2021-01-17 08:28 | Day surgery (SDC) | payer OTHER, SELFPAY ==
[2020-11-24 16:30] VITALS: BMI 41.8
[2021-01-17] VITALS (11 sets, daily range): BP systolic 115–162; BP diastolic 57–89; PULSE 54–78; RESP 16; TEMP 36–36.7; O2SAT 96–100; BMI 41.7
--- NOTE | 2021-01-17 08:34 | HP.PCM_ITS ---
HPI - General HPI Narrative LONG ALMONTE, is a 60 F who presents for screening colonoscopy. Patient previously a colonoscopy about 10 years ago negative as best as patient can remember. Patient states he has bowel movements daily denies any blood. Denies any chronic abdominal pain/nausea/vomiting. Patient is on medication omeprazole for reflux which she says does control symptoms. [facility] Medical History (Updated 01/12/21 @ 10:16 by Kelly Blum) Arthritis Benign essential hypertension Borderline diabetes mellitus Cancer Cardiology follow-up encounter Carpal tunnel syndrome Colon cancer screening COPD (chronic obstructive pulmonary disease) CPAP (continuous positive airway pressure) dependence Diverticulitis Former smoker Gastric reflux GERD (gastroesophageal reflux disease) GI problem Health care maintenance High cholesterol History of diverticulitis History of echocardiogram Hx of thyroid cancer Hyperlipidemia Hypothyroidism Lipoma of both lower extremities Obesity BESSIE on CPAP Sleep apnea Thyroid disease Wears contact lenses Home Medications cholecalciferol (vitamin D3) 50 mcg (2,000 unit) capsule 2,000 unit PO DAILY cap 07/17/19 [History Last Taken Unknown] omeprazole 20 mg capsule,delayed release 20 mg PO DAILY #90 cap 02/17/20 [Rx Last Taken 01/17/21 06:00] ramipril 10 mg capsule 10 mg PO DAILY #90 cap 02/17/20 [Rx Last Taken 01/17/21 06:00] meloxicam 15 mg tablet 15 mg PO DAILY PRN #90 tab 05/18/20 [Rx Last Taken Unknown] hydrochlorothiazide 25 mg tablet 25 mg PO DAILY #90 tab 06/17/20 [Rx Last Taken Unknown] levothyroxine 137 mcg tablet 137 mcg PO DAILY #90 tab 10/15/20 [Rx Last Taken Unknown] cyclobenzaprine 10 mg tablet 10 mg PO QHS PRN #60 tab 12/07/20 [Rx Last Taken Unknown] Allergy/AdvReac Type Severity Reaction Status Date / Time metronidazole [From Flagyl] AdvReac Severe Nausea/Vom/ Verified 01/17/21 08:50 Diarrhea Family History Mother Breast cancer Heart disease COPD (chronic obstructive pulmonary disease) Father Heart disease Hypertension CVA (cerebral vascular accident) Hyperlipemia Lung cancer Diabetes Sister Thyroid disorder Breast cancer Surgical History History of esophagogastroduodenoscopy (EGD) S/P appendectomy S/P S/P colonoscopy S/P endometrial ablation S/P excision of lipoma S/P hysterectomy S/P thyroidectomy Social History Smoking Status: Former smoker how long ago did patient quit smokin years ago second hand exposure: No alcohol intake: never substance use type: does not use what type of physical activity do you participate in: none frequency: does not exercise seatbelt use: always Past Medical/Surgical History Planned Operation Planned Operative Procedure/s: COLONSCOPY S.O.S: No Previous Hospitalizations/Surgeries HX Hospitalizations: No HX of Surgeries: APPENDECTOMY HYSTERECTOMY CSECTION Any Problems With Anesthesia: No You/Your Family Experience Fever (Hyperthermia) With Anes: No Cholinesterase deficiency: No Cardiovascular Hx Chest Pain within Last 2 months: No Hx of Irregular Heartbeat and/or Afib: No Hx Heart Attack: No Hx Congestive Heart Failure: No Hx Rheumatic Fever: No Hx Hypertension: Yes Hx Internal Defibrillator: No Hx Pacemaker: No Hx Cardiac Catheterization: No Hx Cardiac Surgery/Stents/Etc.: No Hx Stress Test: Yes (2011 AND STRESS ECHO 2007) Hx Pain in Legs when Walking/Leg Cramps: No Respiratory Chronic Cough: No HX of Shortness of Breath: Yes (STATES SOB D/T THYROID) Hoarseness: No Hx Chronic Obstructive Pulmonary Disease (COPD): No Hx Asthma: No Hx Emphysema: Yes Hx Sleep Apnea: Yes CPAP: Yes BIPAP: No Hx Respiratory Tract Infection/Cold (presently): No Result (for STOP score): Positive Hx Smoking: Yes (1/2 PPD) Smoking Status: Former smoker Gastrointestinal Hx Gastroesophageal Reflux: Yes Controlled With Meds: Yes Hx Gastrointestinal Disorders: Yes (IBS) Hx Gastrointestinal Bleed: No Hx Ulcer: No Hx Hiatal Hernia: No Difficulty Chewing/Swallowing: Yes (SWALLOWING D/T THYROID NODULE) Special diet followed at home: No Hx Unplanned Weight Loss of 20#: No HX Unplanned Weight Gain of 20#: No Neurological Hx Seizures: No HX Syncope/Blackout Spells/Unconsciousness: No Hx Transient Ischemic Attacks (TIA): No Hx Multiple Sclerosis: No Hx Parkinson's Disease: No Hx Head/Neck Injury: No Hx Headaches: No Hx Back Injury/Pain: Yes (LOW BACK DEGENERATIVE DISEASE) Recent Onset of Speech Difficulty: No Restless Legs: No Does patient have nerve stimulator: No Blood Disorder Hx Leukemia: No Bleeding Tendencies: No Hx Deep Vein Thrombosis: No Hx High Cholesterol: Yes Blood Transmitted Disease: No Hx Hepatitis: No Hx Cirrhosis: No Hx Anemia: No Hx Blood Disorders: No Reproduction Is Patient Lactating: No Hx Hysterectomy: Yes Hx Tubal Ligation: No Are You Post Menopause: No Genitourinary Hx Renal Disease: No Hx Dialysis: No Musculoskeletal Hx Arthritis: Yes Hx Rheumatoid Arthritis: No Hx Gout: No Recent Onset of an Orthopedic Problem: No Endocrine Hx Diabetes: No Thyroid Disease: Yes Hx Steroid Therapy: No Psycho/Social Hx Substance Use: No Hx Alcohol Use: No Hx Anxiety: No Hx Depression: No Mental Illness: No Hx Dementia: No Miscellaneous Hx Cancer: No Recent Exposure to Contagious Disease: No Hx of C-Diff: No Any Loose Teeth: No Allergies metronidazole [From Flagyl] Adverse Reaction (Severe, Verified 01/17/21 08:50) Nausea/Vom/Diarrhea Maternal: Family History Mother Breast cancer Heart disease COPD (chronic obstructive pulmonary disease) Father Heart disease Hypertension CVA (cerebral vascular accident) Hyperlipemia Lung cancer Diabetes Sister Thyroid disorder Breast cancer Cancer (breast) and Heart Disease Paternal: Family History Mother Breast cancer Heart disease COPD (chronic obstructive pulmonary disease) Father Heart disease Hypertension CVA (cerebral vascular accident) Hyperlipemia Lung cancer Diabetes Sister Thyroid disorder Breast cancer Heart Disease, Hypertension and Stroke Discharge Is Pt Admitted From a Long Term, or a Senior Care: No Who Could Help: S.O. RIO After D/C, Where Do you Plan to Go: Return Home Vital Signs Vital Signs Vital Signs: Weight Body Mass Index (BMI) 41.8 Physical Exam Const alert, oriented x3 and no apparent distress HEENT normocephalic and head/scalp atraumatic Resp normal respiratory effort Cardio regular rate GI soft to palpation and non-tender; Negative for non-distended Palpation: Negative for guarding Extremity no clubbing, cyanosis or edema Neuro CN's II-XII intact bilaterally Psych mental status grossly normal Assessment & Plan Assessment/Plan (1) Colon cancer screening: Surgery Risks - Colonoscopy Risks Include but are not Limited To: Risks include but are not limited to: Bleeding, perforation requiring further surgery, inability to complete colonoscopy requiring barium enema. Patient no further questions this time.
[2021-01-17] MEDS: Lactated Ringers 1,000 ML 100 ML IV ×2 (09:01→10:34)
--- NOTE | 2021-01-17 09:45 | COLBX_PTH ---
PATIENT: LONG ALMONTE LOC: EN U#:[id number] AGE/SX: 60/F ROOM: RE01/17/[address]: Dr. Brina Leach MD : 1960 BED: DIS: 01/17/2021 SPEC #: [id number] RECD: 01/17/21 10:58 STATUS: WANDY REDebora #: [id number] JOSE: 01/17/21 09:[address]: Brina Leach DEPT: SURGICAL PATHOLOGY RECD BY: Mohit Mathur ENTERED: 01/17/21 11:49 SP TYPE: COLON BX EVELINA DR: Dr. Tayler Cedeño MD Tissues: A - Descending colon B - Rectum, NOS Procedures: Surgery Specimen Level IV HEADER OPERATION: Colonoscopy ? open access (MAC) PRE-OP DIAGNOSIS: Colon cancer screening TISSUE SUBMITTED: A ? Descending polyp biopsy, B ? Rectal polyp biopsy MICROSCOPIC DIAGNOSIS A. Descending colon polyp, biopsy: Fragments of benign colonic mucosa. See comment. B. Rectal polyp, biopsy: Fragment of tubular adenoma. Fragment of hyperplastic polyp. AM:mp 01/18/2021 COMMENT A. Neither hyperplastic nor adenomatous change is identified. Clinical correlation is suggested. MICROSCOPIC DESCRIPTION Slides are reviewed. GROSS DESCRIPTION A - Received in fixative is one container labeled with the patient's name and designated descending polyp biopsy. The specimen consists of multiple irregular fragments of light hennessy soft tissue that in aggregate measure 0.5 x 0.3 x 0.1 cm. The specimen is totally submitted in one cassette. B - Received in fixative is one container labeled with the patient's name and designated rectal polyp biopsy. The specimen consists of two irregular fragments of light hennessy soft tissue that in aggregate measure 0.6 x 0.2 x 0.1 cm. The specimen is totally submitted in one cassette. / SJ:mp 01/17/21 TC:5 CPT: 89208 x2
--- NOTE | 2021-01-17 09:59 | OP.COLON_ITS ---
Patient Name: Kim Fink Procedure Date: 01/17/2021 9:29 AM Date of : 1960 Age: 60 Procedure: Colonoscopy Indications: Screening for colorectal malignant neoplasm Providers: Brina Leach MD Medicines: Monitored Anesthesia Care Patient Profile: This is a 60 year old female. Last Colonoscopy: 10 years ago. Complications: No immediate complications. Procedure: Pre-Anesthesia Assessment: - Prior to the procedure, a History and Physical was performed, and patient medications and allergies were reviewed. The patient's tolerance of previous anesthesia was also reviewed. The risks and benefits of the procedure and the sedation options and risks were discussed with the patient. All questions were answered, and informed consent was obtained. Prior Anticoagulants: The patient has taken no previous anticoagulant or antiplatelet agents. ASA Grade Assessment: Per anesthesia. After reviewing the risks and benefits, the patient was deemed in satisfactory condition to undergo the procedure. After I obtained informed consent, the scope was passed under direct vision. Throughout the procedure, the patient's blood pressure, pulse, and oxygen saturations were monitored continuously. The Colonoscope was introduced through the anus and advanced to the cecum, identified by the appendiceal orifice, ileocecal valve and palpation. The colonoscopy was performed without difficulty. The patient tolerated the procedure well. The quality of the bowel preparation was good. Scope In: 9:31:58 AM Scope Withdrawal Time 0 hours 13 minutes 43 seconds Scope Out: 9:53:25 AM Total Procedure Duration Time 0 hours 21 minutes 27 seconds Findings: Hemorrhoids were found on perianal exam. Non-bleeding external and internal hemorrhoids were found. The hemorrhoids were Grade II (internal hemorrhoids that prolapse but reduce spontaneously). Multiple small-mouthed diverticula were found in the sigmoid colon and descending colon. Three sessile polyps were found in the rectum and descending colon. The polyps were less than 5 mm in size. These polyps were removed with a cold biopsy forceps. Resection and retrieval were complete. The exam was otherwise without abnormality. Impression: - Hemorrhoids found on perianal exam. - Non-bleeding external and internal hemorrhoids. - Diverticulosis in the sigmoid colon and in the descending colon. - Three less than 5 mm polyps in the rectum and in the descending colon, removed with a cold biopsy forceps. Resected and retrieved. - The examination was otherwise normal. Recommendation: - Discharge patient to home. - High fiber diet. - Continue present medications. - Await pathology results. - Repeat colonoscopy in 5 years for surveillance based on pathology results. Procedure Code(s): --- Professional --- 74739, PT, Colonoscopy, flexible; with biopsy, single or multiple Diagnosis Code(s): --- Professional --- Z12.11, Encounter for screening for malignant neoplasm of colon K64.1, Second degree hemorrhoids K62.1, Rectal polyp D12.4, Benign neoplasm of descending colon K57.30, Diverticulosis of large intestine without perforation or abscess without bleeding CPT copyright 2017 [employer]. All rights reserved. The codes documented in this report are preliminary and upon parcel carrier review may be revised to meet current compliance requirements. MD Brina Pierre MD 01/17/2021 9:58:58 AM This report has been signed electronically. Number of Addenda: 0 Note Initiated On: 01/17/2021 9:29 AM
--- NOTE | 2021-01-17 10:00 | OP.CCLET_ITS ---
01/17/2021 Tayler Cedeño MD [address] [place] [address] [place] [address] Re : Colonoscopy procedure for Kim Fink Dear Dr. Cedeño This procedure was performed on Sunday, January 17, 2021. My impressions and recommendations are as follows: Impressions : - Hemorrhoids found on perianal exam. - Non-bleeding external and internal hemorrhoids. - Diverticulosis in the sigmoid colon and in the descending colon. - Three less than 5 mm polyps in the rectum and in the descending colon, removed with a cold biopsy forceps. Resected and retrieved. - The examination was otherwise normal. Recommendations : - Discharge patient to home. - High fiber diet. - Continue present medications. - Await pathology results. - Repeat colonoscopy in 5 years for surveillance based on pathology results. My findings are described in the full procedure note, which is enclosed. If I can be of further assistance, please feel free to contact me at Doctor phone number(s): , Work: . Sincerely, MD Brina Pierre MD 01/17/2021 9:58:58 AM This report has been signed electronically.
--- NOTE | 2021-01-17 10:15 | SUR.PHASEI ---
Patient had vagal response after scope. Bradycardia of 39BPM. Patient attempting to pass gas. Patient returned to baseline HR of 73. Alert and awake. Complaint of cramping and nausea. Anesthesia aware of nausea and Dr. Leach aware of cramping and nausea.
== END 2021-01-17 11:17 ==
LOC: EN 08:31 → AC 08:31
PROVIDERS: PCP Internal Medicine; Referring Provider Internal Medicine; Visit Provider Surgery
PROC: 0DJD8ZZ Inspection of Lower Intestinal Tract, Via Natural or Artificial Opening Endoscopic (ICD-10-PCS; CPT 45378; principal; 2021-01-17 09:40)
DX: Z12.11 Encounter for screening for malignant neoplasm of colon (principal); K64.1 Second degree hemorrhoids; K62.1 Rectal polyp; D12.4 Benign neoplasm of descending colon; K57.30 Diverticulosis of large intestine without perforation or abscess without bleeding; K21.9 Gastro-esophageal reflux disease without esophagitis; I10 Essential (primary) hypertension; J44.9 Chronic obstructive pulmonary disease, unspecified; E78.00 Pure hypercholesterolemia, unspecified; E03.9 Hypothyroidism, unspecified; E78.5 Hyperlipidemia, unspecified; G47.33 Obstructive sleep apnea (adult) (pediatric); Z87.891 Personal history of nicotine dependence; Z85.850 Personal history of malignant neoplasm of thyroid
CPT/HCPCS: 45380; 88305; J7120; J2405; J3490

== ENCOUNTER → 2021-03-28 06:39 | Outpatient (CLI) | payer OTHER, SELFPAY ==
[2021-03-28 08:11] LABS: Anion Gap 5 (5-15); BUN 23 mg/dL (7-18); BUN/Creat Ratio 28.7 RATIO (10-20); Calcium,Total 9.3 mg/dL (8.5-10.1); Chloride 106 mmol/L (98-107); EST Glomerular Filtration Rate 78 mL/min (>60); Est Glom Filt Rate - Afr Amer 94 mL/min (>60); Glucose 110 mg/dL (74-106); Potassium 4.3 mmol/L (3.5-5.1); Sodium Level 137 mmol/L (136-145); Thyroid Stim Hormone (TSH) 1.33 uIU/mL (0.358-3.74)
[2021-03-28 08:20] LABS: AST(SGOT) 14 U/L (15-37); Alanine Aminotransfer ALT/SGPT 31 U/L (13-56); Albumin, Serum 3.4 g/dL (3.2-5.0); Alkaline Phosphatase 67 U/L (45-117); Cholesterol 141 mg/dL (200); Globulin 3.9 g/dL (2.2-4.2); High Density Lipoprotein 47 mg/dL; Protein, Total 7.3 g/dL (6.4-8.2); Triglycerides 61 mg/dL; Very Low Density Lipoprotein 12 mg/dL (5-40)
[2021-03-28 09:53] LABS: Hemoglobin A1c 5.4 % (3.8-5.6)
== END ==
PROVIDERS: Internal Medicine Cardiovascular Disease; PCP Internal Medicine; Referring Provider Internal Medicine; Visit Provider Internal Medicine
DX: E78.00 Pure hypercholesterolemia, unspecified (principal); E78.5 Hyperlipidemia, unspecified; I10 Essential (primary) hypertension; R73.03 Prediabetes; E03.9 Hypothyroidism, unspecified
CPT/HCPCS: 36415; 80048; 80061; 80076; 83036; 84443

== ENCOUNTER → 2021-04-05 13:43 | Outpatient (CLI) | payer OTHER, SELFPAY ==
--- NOTE | 2021-04-05 13:46 | CT_ITS ---
STUDY: LOW DOSE CT LUNG CANCER SCREENING REASON FOR EXAM: Female, 60 years old. Lung cancer screening -- 30 pk yr hx; asymptomatic; former smoker RADIATION DOSAGE (If Supplied By Facility): CTDIvol = ( 3.18 ) mGy, DLP = ( 102.44 ) mGycm TECHNIQUE: No contrast was administered. Low dose technique was utilized (average mAS-38 and kVp 120). 1.25 mm axial source images with a slice interval of 1.25-mm were reconstructed in lung windows. 2.5 mm axial source images with a slice interval of 2.5-mm were reconstructed in lung windows. 5.0 mm axial source images with a slice interval of 5.0-mm were reconstructed in soft tissue windows. Nodule measured using lung windows on PACS and/or independent workstation with automated measurement of minimum and maximum diameter. Nodule measurement reported as average diameter rounded to the nearest whole number. Growth is defined as an increase ins size of greater than 1.5 mm. COMPARISON: Comparison is made with prior study dated 03/16/2020. NODULES: No suspicious nodule is seen. Emphysema: Minimal linear scarring is seen in the anterior medial aspect of the lingular segment of the left upper lobe as well as in the posterior segment of the left lower lobe. Endobronchial lesion: None Aorta: Mild degree of atherosclerotic plaques at the level of the aortic arch. Coronary arteries: Coronary artery calcification. Mediastinal nodes: Small mediastinal lymph nodes. Other chest and abdominal findings: CT/Low Dose CT Lung Screening IMPRESSION: Lung-RADS category 2 - Continue annual screening with LDCT in 12 months. IMPORTANT NOTES FOR USE: ACR Lung-RADS Version 1.1 Assessment Categories Release Date: 2018 Category: Coded 0-4 bases on nodule(s) with highest degree of suspicion. Negative screen is defined as categories 1 and 2; a positive screen is defined as categories 3 and 4. Category 3 and 4A nodules that are unchanged on interval CT should be coded as category 2, and individuals returned to screening in 12 months. Category 4X: Category 3 or 4 nodules with additional imaging findings that increase the suspicion of lung cancer, such as spiculation, GGN that doubles in size in 1 year, enlarged lymph notes, etc. Category Modifiers: S (significant finding unrelated to lung cancer) Electronically Signed: Mateus Valentino MD at 14:32 EST , Service support ,
== END ==
PROVIDERS: PCP Internal Medicine; Referring Provider Nurse Practitioner Family; Visit Provider Nurse Practitioner Family
DX: Z12.2 Encounter for screening for malignant neoplasm of respiratory organs (principal); Z87.891 Personal history of nicotine dependence
CPT/HCPCS: 71271

== ENCOUNTER → 2021-05-18 05:48 | Outpatient (CLI) | payer OTHER, SELFPAY ==
--- NOTE | 2021-05-18 18:41 | STRESSREP ---
Stress Test Report Exercise myocardial perfusion stress test. 60-year-old lady with a history of chest pain and coronary artery calcification. Medications ramipril amlodipine omeprazole. Stress protocol: Resting EKG demonstrates normal sinus rhythm with a rate of 69 bpm normal intervals are noted resting blood pressure is 130/82 mmHg. The patient exercised according to regular Geronimo protocol for a total duration of 5 minutes and 20 seconds completing 2 minutes and 20 seconds into stage II of the Geronimo protocol. The maximum heart rate attained was 150 bpm which was 93% of max impact at heart rate the maximum workload was 7 metabolic equivalents. At rest there were no ST or T wave changes noted suggest ischemia and at peak exercise upsloping ST changes were noted with did not meet the criteria for ischemia. The test was terminated due to dyspnea no clinical angina was noted. The peak blood pressure was 164/76 mmHg which was a normal blood pressure response to exercise. Myocardial perfusion protocol. 14.5 mCi of technetium 99m sestamibi was injected at rest. The patient exercised according to regular Geronimo protocol for 5 minutes and 20 seconds and at peak exercise 45.0 mCi of technetium 99m sestamibi was injected stress images were obtained stress and rest images were reconstructed and compared in the short axis vertical long horizontal long axis. Gated images were also obtained for Perfusion SPECT analysis: Review of the stress images demonstrate normal uptake of tracer noted in all areas of the myocardium. The resting images only demonstrate normal uptake of tracer noted in all areas of the myocardium. No areas of reversibility are noted suggest ischemia no previous infarct is noted. Gated SPECT analysis: The gated ejection fraction is 81%. Conclusion: Normal exercise myocardial perfusion stress test at a moderate workload. Preserved ejection fraction.
== END ==
PROVIDERS: PCP Internal Medicine; Referring Provider Nurse Practitioner Gerontology; Visit Provider Nurse Practitioner Gerontology
DX: R07.89 Other chest pain (principal); I25.10 Atherosclerotic heart disease of native coronary artery without angina pectoris; I25.84 Coronary atherosclerosis due to calcified coronary lesion
CPT/HCPCS: 78452; 93017; A9500; A4216

== ENCOUNTER 2021-05-31 15:20 | Outpatient (CLI) | payer OTHER, SELFPAY ==
[2021-05-31 16:50] LABS: Hemoglobin A1c 5.6 % (3.8-5.6)
[2021-06-03 11:37] LABS: Anti-Thyroglobulin AB < 1.0 IU/mL (0.0-0.9); Thyroglobulin, Serum Qt. 0.4 ng/mL (1.5-38.5)
== END 2021-05-31 23:59 | disposition short-term general hospital (02) ==
LOC: BIMLAB 15:21
PROVIDERS: PCP Internal Medicine; Visit Provider Internal Medicine Endocrinology, Diabetes & Metabolism
DX: C73 Malignant neoplasm of thyroid gland (principal); E03.9 Hypothyroidism, unspecified; R73.03 Prediabetes
CPT/HCPCS: 36415; 83036; 84432; 84443; 86800

== ENCOUNTER → 2021-10-10 | Outpatient (CLI) | payer OTHER, SELFPAY ==
[2021-10-10 16:47] LABS: Anion Gap 5 (5-15); BUN 23 mg/dL (7-18); BUN/Creat Ratio 26.3 RATIO (10-20); Calcium,Total 9.2 mg/dL (8.5-10.1); Chloride 106 mmol/L (98-107); Creatinine, Serum 0.87 mg/dL (0.55-1.02); EST Glomerular Filtration Rate 70 mL/min (>60); Est Glom Filt Rate - Afr Amer 85 mL/min (>60); Glucose 122 mg/dL (74-106); Potassium 3.8 mmol/L (3.5-5.1); Sodium Level 139 mmol/L (136-145)
[2021-10-10 16:57] LABS: Absolute Lymphocyte Count 2.46 X10^3/uL (0.83-4.51); Absolute Neutrophil Count 5.7 X10^3/uL (2.0-7.7); Basophil# 0.04 X10^3/uL; Basophil% 0.4 % (0-1); Eosinophil# 0.12 X10^3/uL; Eosinophils% 1.3 % (0-5); Hematocrit 38.8 % (37-47); Hemoglobin 13.2 g/dL (12.0-15.0); Lymphocyte # 2.46 X10^3/ul (0.83-4.51); Lymphocyte % 27.6 % (19-41); Mean Corpuscular Hgb 32.7 pg (27.0-32.0); Mean Platelet Vol. 12.1 fl (6.2-12.0); Monocyte# 0.55 X10^3/uL; Monocyte% 6.2 % (0-10); NRBC Flagged by Analyzer 0 % (0-5); Neutrophil # 5.69 X10^3/uL (2.7-7.7); Neutrophil % 64.1 % (47-70); Platelet Count 254 K/mm3 (150-450); RBC Distribution Width CV 11.9 % (11.6-14.6); RBC Distribution Width SD 41.8 fl (35.1-43.9); Red Blood Count 4.04 M/mm3 (4.2-5.4); White Blood Count 8.9 K/mm3 (4.4-11.0)
== END | disposition home or self-care (01) ==
LOC: BIMLAB 15:26
PROVIDERS: PCP Internal Medicine; Referring Provider Internal Medicine; Visit Provider Internal Medicine
DX: I10 Essential (primary) hypertension (principal)
CPT/HCPCS: 36415; 80048; 85025

== ENCOUNTER → 2021-10-21 | Outpatient (CLI) | payer OTHER, SELFPAY ==
--- NOTE | 2021-10-24 09:11 | PFT ---
INTRODUCTION: The patient is a 60-year-old female that presents for pulmonary function studies secondary to a diagnosis of COPD. Respiratory therapy reported good patient effort. Bronchodilators were used during testing. INTERPRETATION: Forced expiration spirometry demonstrates no evidence of a large airways obstructive ventilatory defect. There was no significant response to aerosolized bronchodilators. Spirograms are of good quality and plateau normally. Body plethysmography was performed and revealed lung volumes to be within normal limits. Diffusing capacity by single breath CO is also within normal limits. IMPRESSION: Grossly normal pulmonary function studies. No evidence of COPD.
== END | disposition home or self-care (01) ==
PROVIDERS: PCP Internal Medicine; Referring Provider Internal Medicine; Visit Provider Internal Medicine
DX: J44.9 Chronic obstructive pulmonary disease, unspecified (principal)
CPT/HCPCS: 94060; 94726; 94729

== ENCOUNTER → 2021-11-30 | Outpatient (CLI) | payer OTHER, SELFPAY ==
--- NOTE | 2021-11-30 07:04 | BI_ITS ---
MAMMOGRAPHY - BILATERAL SCREENING REASON FOR EXAM: Female, 60 years old. Routine annual screening examination. PERTINENT HISTORY: Sister with breast cancer. Mother with breast cancer. TECHNIQUE: Digital bilateral breast miguel (3D mammographic acquisition) in the CC and MLO projections. 2-D mediolateral oblique (MLO) and craniocaudad (CC) views of both breasts were obtained. CAD: Full Field Digital Mammography with Computer Added Detection was performed. COMPARISON: Comparison is made with prior study dated 10/05/2020 FINDINGS: Breast Composition: There are scattered areas of fibroglandular density. There are no dominant masses or suspicious calcifications. Stable small benign appearing bilateral axillary lymph nodes. No other significant abnormalities are identified. There has been no significant change since the prior study. BI/SCRN MAMM (CAD)W/MIGUEL BILAT IMPRESSION: Stable bilateral screening mammogram. Yearly follow-up mammogram recommended. (A) ASSESSMENT CATEGORY: BIRADS Category 2: Benign. A letter regarding these results will be sent to the patient by the facility within 30 days. Approximately 10% of breast cancers are not detected by mammography. A normal mammogram should not delay biopsy of a clinically suspicious abnormality. [id number] Electronically Signed: Mateus Valentino MD at 8:35 EDT ,
== END | disposition home or self-care (01) ==
LOC: OPBI 07:03
PROVIDERS: PCP Internal Medicine; Visit Provider Nurse Practitioner Family
DX: Z12.31 Encounter for screening mammogram for malignant neoplasm of breast (principal); Z80.3 Family history of malignant neoplasm of breast
CPT/HCPCS: 77063; 77067

== ENCOUNTER → 2022-02-22 | Outpatient (CLI) | payer OTHER, SELFPAY ==
[2022-02-22 12:32] LABS: Absolute Neutrophil Count 3.1 X10^3/uL (2.0-7.7); Basophil# 0.05 X10^3/uL; Basophil% 0.8 % (0-1); Eosinophil# 0.15 X10^3/uL; Eosinophils% 2.5 % (0-5); Hematocrit 40.2 % (37-47); Hemoglobin 13.5 g/dL (12.0-15.0); Lymphocyte % 38.4 % (19-41); Mean Corp Hgb Conc 33.6 g/dL (32-36); Mean Corpuscular Volume 98.3 fL (81-99); Mean Platelet Vol. 11.9 fl (6.2-12.0); Monocyte# 0.41 X10^3/uL; Monocyte% 6.8 % (0-10); NRBC Flagged by Analyzer 0 % (0-5); Neutrophil # 3.07 X10^3/uL (2.7-7.7); Neutrophil % 51.3 % (47-70); Platelet Count 264 K/mm3 (150-450); RBC Distribution Width CV 11.9 % (11.6-14.6); RBC Distribution Width SD 43.1 fl (35.1-43.9); Red Blood Count 4.09 M/mm3 (4.2-5.4)
[2022-02-22 12:54] LABS: Vitamin B12 429 pg/mL (211-911)
[2022-02-22 13:02] LABS: AST(SGOT) 15 U/L (15-37); Alanine Aminotransfer ALT/SGPT 30 U/L (13-56); Albumin, Serum 3.7 g/dL (3.2-5.0); Alkaline Phosphatase 69 U/L (45-117); Bilirubin, Direct 0.09 mg/dL (0.00-0.30); Cholesterol 161 mg/dL (200); Globulin 3.9 g/dL (2.2-4.2); High Density Lipoprotein 49 mg/dL; Protein, Total 7.6 g/dL (6.4-8.2); Triglycerides 94 mg/dL; Very Low Density Lipoprotein 19 mg/dL (5-40)
[2022-02-22 13:47] LABS: Anion Gap 7 (5-15); BUN 17 mg/dL (7-18); BUN/Creat Ratio 20.1 RATIO (10-20); Calcium,Total 9.6 mg/dL (8.5-10.1); Chloride 106 mmol/L (98-107); Creatinine, Serum 0.85 mg/dL (0.55-1.02); EST Glomerular Filtration Rate 73 mL/min (>60); Est Glom Filt Rate - Afr Amer 88 mL/min (>60); Ferritin 160 ng/mL (8-252); Glucose 115 mg/dL (74-106); Iron 91 ug/dL (50-170); Iron Binding Capacity,Total 317 ug/dL (250-450); Magnesium 2.3 mg/dL (1.6-2.6); PERCENT IRON SATURATION 28.7 % (15.0-55.0); Potassium 4.4 mmol/L (3.5-5.1); Sodium Level 139 mmol/L (136-145); Thyroid Stim Hormone (TSH) 3.25 uIU/mL (0.358-3.74)
== END | disposition home or self-care (01) ==
LOC: BIMLAB 09:02
PROVIDERS: Nurse Practitioner Gerontology; PCP Internal Medicine; Referring Provider Nurse Practitioner Family; Visit Provider Nurse Practitioner Family
DX: E03.9 Hypothyroidism, unspecified (principal); I10 Essential (primary) hypertension; E56.9 Vitamin deficiency, unspecified; R00.2 Palpitations; D64.9 Anemia, unspecified
CPT/HCPCS: 36415; 80048; 80061; 80076; 82607; 82728; 83540; 83550; 83735; 84443; 85025

== ENCOUNTER → 2022-05-31 | Outpatient (CLI) | payer OTHER, SELFPAY ==
--- NOTE | 2022-05-31 14:27 | RAD_ITS ---
INDICATION: Dyspnea on exertion, chest heaviness EXAMINATION/TECHNIQUE: X-RAY - XR Chest 2 Views COMPARISON: December 02, 2019 FINDINGS: LINES/DEVICES: None. LUNGS: No consolidation, edema or effusion. No pneumothorax. MEDIASTINUM AND CARDIOVASCULAR STRUCTURES: Cardiac silhouette not enlarged. Central airways and mediastinal contour are unremarkable. BONES AND SOFT TISSUES: Unremarkable. RAD/Chest PA and Lateral IMPRESSION: No radiographic evidence of acute cardiopulmonary disease. Electronically Signed: Oscar Nelson MD at 21:15 EST ,
[2022-05-31 14:29] LABS: Hematocrit 38.9 % (37-47); Hemoglobin 13.6 g/dL (12.0-15.0); Mean Corpuscular Hgb 33.2 pg (27.0-32.0); Mean Corpuscular Volume 94.9 fL (81-99); Platelet Count 280 K/mm3 (150-450); RBC Distribution Width CV 11.9 % (11.6-14.6); RBC Distribution Width SD 41.2 fl (35.1-43.9)
[2022-05-31 14:45] LABS: D-Dimer Quantitative (DVT/PE) 0.31 FEU/ug/m (0.27-0.49)
[2022-05-31 14:59] LABS: Anion Gap 4 (5-15); BUN 20 mg/dL (7-18); Calcium,Total 9.5 mg/dL (8.5-10.1); Chloride 106 mmol/L (98-107); Creatinine, Serum 0.95 mg/dL (0.55-1.02); EST Glomerular Filtration Rate 63 mL/min (>60); Est Glom Filt Rate - Afr Amer 77 mL/min (>60); Glucose 115 mg/dL (74-106); Potassium 4.7 mmol/L (3.5-5.1); Sodium Level 138 mmol/L (136-145)
[2022-05-31 15:01] LABS: BNP,B-Type NATRIURETIC PEPTIDE 6.2 pg/mL (0-100)
== END | disposition home or self-care (01) ==
LOC: LAB 14:09
PROVIDERS: PCP Internal Medicine; Referring Provider Internal Medicine Cardiovascular Disease; Visit Provider Internal Medicine Cardiovascular Disease
DX: Z87.891 Personal history of nicotine dependence (principal); D64.0 Hereditary sideroblastic anemia; R07.89 Other chest pain; R06.09 Other forms of dyspnea; I25.10 Atherosclerotic heart disease of native coronary artery without angina pectoris; I25.84 Coronary atherosclerosis due to calcified coronary lesion; I10 Essential (primary) hypertension
CPT/HCPCS: 36415; 71046; 80048; 83880; 85027; 85379

== ENCOUNTER → 2022-06-06 | Outpatient (CLI) | payer OTHER, SELFPAY ==
--- NOTE | 2022-06-06 16:38 | STRESSREP ---
Stress Test Report Exercise myocardial perfusion stress test. 61-year-old lady with a history of chest pain Stress protocol: Resting EKG demonstrates normal sinus rhythm with a rate of 61 bpm resting blood pressure is 132/88 mmHg. The patient exercised according to the regular Geronimo protocol for a total duration of 4 minutes and 31 seconds attaining a maximum heart rate of 146 bpm which was 91% of maximum predicted heart rate; the maximum workload was 7 metabolic equivalents. At rest there were no ST or T wave changes noted to suggest ischemia and at peak exercise upsloping ST changes only were noted which did not meet the criteria for ischemia. No clinical angina was noted the test was terminated due to the target heart rate being achieved/fatigue. The peak blood pressure was 180/90 mmHg. Rate-pressure product was 18,800. Myocardial perfusion protocol. 14.7 mCi of technetium 99m sestamibi was injected at rest. The patient exercised according to regular Geronimo protocol for total duration of 4 minutes and 31 seconds and at peak exercise 44.6 mCi of technetium 99m sestamibi was injected stress images were obtained stress and rest images were reconstructed in comparing the short axis vertical long and horizontal long axis. Gated images were also obtained. Perfusion SPECT analysis: Review of the stress images demonstrate normal uptake of tracer noted in all areas of the myocardium. The resting images similarly demonstrate normal uptake of tracer noted in all areas of the myocardium. No areas of reversibility are noted to suggest ischemia no previous infarct was noted. Gated SPECT analysis: The gated ejection fraction is 71%. Conclusion: Normal exercise myocardial perfusion stress test at a moderate workload Preserved ejection fraction.
== END | disposition home or self-care (01) ==
PROVIDERS: PCP Internal Medicine; Referring Provider Internal Medicine Cardiovascular Disease; Visit Provider Internal Medicine Cardiovascular Disease
DX: R53.83 Other fatigue (principal); R06.09 Other forms of dyspnea; I25.10 Atherosclerotic heart disease of native coronary artery without angina pectoris; I25.84 Coronary atherosclerosis due to calcified coronary lesion; R07.89 Other chest pain; E78.5 Hyperlipidemia, unspecified; R73.03 Prediabetes
CPT/HCPCS: 78452; 93017; A9500; A4216

== ENCOUNTER → 2022-06-13 | Outpatient (CLI) | payer OTHER, SELFPAY ==
--- NOTE | 2022-06-13 13:01 | CT_ITS ---
STUDY: LOW DOSE CT LUNG CANCER SCREENING REASON FOR EXAM: Female, 61 years old. Lung cancer screening -- and gt;20 pk yr hx;former smoker;asymptomatic RADIATION DOSAGE (If Supplied By Facility): CTDIvol = ( 3.02 ) mGy, DLP = ( 108.35 ) mGycm TECHNIQUE: No contrast was administered. Low dose technique was utilized (average mAS-38 and kVp 120). 1.25 mm axial source images with a slice interval of 1.25-mm were reconstructed in lung windows. 2.5 mm axial source images with a slice interval of 2.5-mm were reconstructed in lung windows. 5.0 mm axial source images with a slice interval of 5.0-mm were reconstructed in soft tissue windows. COMPARISON: Comparison is made with prior study dated 04/05/2021. NODULES: No suspicious nodules are seen. Emphysema: Unremarkable Endobronchial lesion: Unremarkable Aorta: Atherosclerotic calcific plaques of the aortic arch. CORONARY ARTERIES: Coronary artery calcification is seen. Heart: Unremarkable Pulmonary artery: Unremarkable Mediastinal nodes: Small mediastinal lymphadenopathy. Other chest and abdominal findings: 3.7 cm x 3.9 cm hypodensity in the superior aspect of the left lobe of the liver suggestive of a small cyst. This is unchanged. CT/Low Dose CT Lung Screening IMPRESSION: Lung-RADS category 2 - Continue annual screening with LDCT in 12 months. IMPORTANT NOTES FOR USE: ACR Lung-RADS Version 1.1 Assessment Categories Release Date: 2018 Category: Coded 0-4 bases on nodule(s) with highest degree of suspicion. Negative screen is defined as categories 1 and 2; a positive screen is defined as categories 3 and 4. Category 3 and 4A nodules that are unchanged on interval CT should be coded as category 2, and individuals returned to screening in 12 months. Category 4X: Category 3 or 4 nodules with additional imaging findings that increase the suspicion of lung cancer, such as spiculation, GGN that doubles in size in 1 year, enlarged lymph notes, etc. Category Modifiers: S (significant finding unrelated to lung cancer) Electronically Signed: Mateus Valentino MD at 14:11 EST ,
== END | disposition home or self-care (01) ==
LOC: CT 13:00
PROVIDERS: PCP Internal Medicine; Referring Provider Nurse Practitioner Family; Visit Provider Nurse Practitioner Family
DX: Z12.2 Encounter for screening for malignant neoplasm of respiratory organs (principal); I70.0 Atherosclerosis of aorta; I25.10 Atherosclerotic heart disease of native coronary artery without angina pectoris; R93.5 Abnormal findings on diagnostic imaging of other abdominal regions, including retroperitoneum; R59.0 Localized enlarged lymph nodes; R91.8 Other nonspecific abnormal finding of lung field; Z87.891 Personal history of nicotine dependence
CPT/HCPCS: 71271

== ENCOUNTER → 2022-12-04 | Outpatient (CLI) | payer OTHER, SELFPAY ==
--- NOTE | 2022-12-04 07:20 | BI_ITS ---
MAMMOGRAPHY - BILATERAL SCREENING 3-D TOMOSYNTHESIS REASON FOR EXAM: Female, 61 years old. Routine screening PERTINENT HISTORY: No significant family history. TECHNIQUE: 2-D mammograms and 3-D Tomosynthesis of the breast (s) were performed. CAD was performed. COMPARISON: 10/05/2020 FINDINGS: The breast composition is composed of scattered fibroglandular density. Scattered benign calcifications are seen. No dense spiculated masses or suspicious microcalcifications are identified. No architectural distortion is identified. There is no skin thickening or retraction. There has been no significant change since the prior study. BI/SCRN MAMM (CAD)W/MIGUEL BILAT IMPRESSION: No mammographic signs of malignancy. Routine yearly mammograms recommended. ASSESSMENT CATEGORY: BIRADS Category 1: Negative. A letter regarding these results will be sent to the patient by the facility within 30 days. FOLLOW UP RECOMMENDATION: Yearly follow up mammogram recommended. (A) Approximately 10% of breast cancers are not detected by mammography. A normal mammogram should not delay biopsy of a clinically suspicious abnormality. Electronically Signed: Kahlil Thakkar MD at 9:35 EDT ,
== END | disposition home or self-care (01) ==
LOC: OPBI 07:19
PROVIDERS: PCP Internal Medicine; Referring Provider Internal Medicine; Visit Provider Internal Medicine
DX: Z12.31 Encounter for screening mammogram for malignant neoplasm of breast (principal)
CPT/HCPCS: 77063; 77067

== ENCOUNTER → 2023-01-17 | Outpatient (CLI) | payer OTHER, SELFPAY ==
[2023-01-17 12:20] LABS: Absolute Lymphocyte Count 2.33 X10^3/uL (0.83-4.51); Absolute Neutrophil Count 3.5 X10^3/uL (2.0-7.7); Basophil# 0.04 X10^3/uL; Basophil% 0.6 % (0-1); Eosinophil# 0.13 X10^3/uL; Hematocrit 39.4 % (37-47); Hemoglobin 12.9 g/dL (12.0-15.0); Lymphocyte # 2.33 X10^3/ul (0.83-4.51); Lymphocyte % 36.5 % (19-41); Mean Corp Hgb Conc 32.7 g/dL (32-36); Mean Corpuscular Hgb 31.7 pg (27.0-32.0); Mean Corpuscular Volume 96.8 fL (81-99); Mean Platelet Vol. 11.7 fl (6.2-12.0); Monocyte# 0.42 X10^3/uL; Monocyte% 6.6 % (0-10); NRBC Flagged by Analyzer 0 % (0-5); Neutrophil # 3.46 X10^3/uL (2.7-7.7); Neutrophil % 54.1 % (47-70); Platelet Count 245 K/mm3 (150-450); RBC Distribution Width CV 12.4 % (11.6-14.6); RBC Distribution Width SD 44.9 fl (35.1-43.9); Red Blood Count 4.07 M/mm3 (4.2-5.4); White Blood Count 6.4 K/mm3 (4.4-11.0)
[2023-01-17 13:01] LABS: AST(SGOT) 8 U/L (15-37); Alanine Aminotransfer ALT/SGPT 22 U/L (13-56); Albumin, Serum 3.6 g/dL (3.2-5.0); Alkaline Phosphatase 59 U/L (45-117); Anion Gap 7 (5-15); BUN 21 mg/dL (7-18); BUN/Creat Ratio 24.9 RATIO (10-20); Calcium,Total 9.3 mg/dL (8.5-10.1); Chloride 106 mmol/L (98-107); Cholesterol 168 mg/dL (200); Creatinine, Serum 0.84 mg/dL (0.55-1.02); EST Glomerular Filtration Rate 73 mL/min (>60); Est Glom Filt Rate - Afr Amer 88 mL/min (>60); Globulin 3.5 g/dL (2.2-4.2); Glucose 97 mg/dL (74-106); High Density Lipoprotein 54 mg/dL; Potassium 4.1 mmol/L (3.5-5.1); Protein, Total 7.1 g/dL (6.4-8.2); Sodium Level 138 mmol/L (136-145); Thyroid Stim Hormone (TSH) 0.27 uIU/mL (0.358-3.74); Triglycerides 70 mg/dL; Very Low Density Lipoprotein 14 mg/dL (5-40)
== END | disposition home or self-care (01) ==
LOC: BIMLAB 09:43
PROVIDERS: PCP Internal Medicine; Visit Provider Internal Medicine
DX: I10 Essential (primary) hypertension (principal); E03.9 Hypothyroidism, unspecified
CPT/HCPCS: 36415; 80053; 80061; 84443; 85025

== ENCOUNTER → 2023-01-30 | Outpatient (CLI) | payer OTHER, SELFPAY ==
--- NOTE | 2023-01-30 13:00 | BD_ITS ---
STUDY: DUAL ENERGY X-RAY ABSORPTIOMETRY / DXA REASON FOR EXAM: Female, 62 years old. Post menopausal TECHNIQUE: Bone Mineral Density (BMD) measurements of lumbar spine and bilateral hips were obtained. COMPARISON: None. FINDINGS: Lumbar Spine (L1-L4): g/cm2 (1.078) / T-score (0.3) / Z-score (1.8) Findings are suggestive of normal bone density with a low fracture risk. Left Femur Total: g/cm2 (0.977) / T-score (0.3) / Z-score (1.3) Left Femoral Neck: g/cm2 (0.791) / T-score (-0.5) / Z-score (0.8) Right Femur Total: g/cm2 (0.984) / T-score (0.3) / Z-score (1.3) Right Femoral Neck: g/cm2 (0.834) / T-score (-0.1) / Z-score (1.2) BD/Dexa Bone Density Study IMPRESSION: The patient is considered normal as outlined below according to World [place]ola Organization (WHO) criteria with a low fracture risk. Reference Information: The T-score is the number of standard deviations above or below the standard which is normal for young adults at their peak bone mineral density. The World Health Organization (WHO) interprets the T-scores as follows: Above -1 Normal bone density Between -1 and -2.5 Osteopenia Equal to / or below -2.5 Osteoporosis As a practical clinical guideline, osteopenia may be graded as follows: Mild -1 through -1.5 Moderate -1.6 through -2.0 Severe -2.1 through -2.4 The Z-score is the number of standard deviations above or below age-matched controls. A Z-score of less than -1.5 would be considered abnormal. References: 1. NIH Osteoporosis and Related Bone Diseases www osteo.org 2. International Society for Clinical Densitometry www iscd.org 3. National Osteoporosis Foundation www nof.org Electronically Signed: Mateus Valentino MD at 14:23 EDT ,
== END | disposition home or self-care (01) ==
PROVIDERS: PCP Internal Medicine; Referring Provider Internal Medicine; Visit Provider Internal Medicine
DX: Z78.0 Asymptomatic menopausal state (principal)
CPT/HCPCS: 77080

== ENCOUNTER → 2023-02-21 | Outpatient (CLI) | payer OTHER, SELFPAY ==
[2023-02-21 12:50] LABS: Thyroid Stim Hormone (TSH) 2.98 uIU/mL (0.358-3.74)
[2023-02-21 13:37] LABS: AST(SGOT) 12 U/L (15-37); Alanine Aminotransfer ALT/SGPT 28 U/L (13-56); Alkaline Phosphatase 64 U/L (45-117); Bilirubin, Direct 0.08 mg/dL (0.00-0.30); Cholesterol 203 mg/dL (200); Globulin 3.9 g/dL (2.2-4.2); High Density Lipoprotein 50 mg/dL; Protein, Total 7.9 g/dL (6.4-8.2); Triglycerides 82 mg/dL; Very Low Density Lipoprotein 16 mg/dL (5-40)
== END | disposition home or self-care (01) ==
LOC: LAB 11:41
PROVIDERS: Nurse Practitioner Gerontology; PCP Internal Medicine; Referring Provider Internal Medicine; Visit Provider Internal Medicine
DX: E78.5 Hyperlipidemia, unspecified (principal); E03.9 Hypothyroidism, unspecified
CPT/HCPCS: 36415; 80061; 80076; 84443

== ENCOUNTER → 2023-06-19 | Outpatient (CLI) | payer OTHER, SELFPAY ==
--- NOTE | 2023-06-19 12:19 | CT_ITS ---
STUDY: LOW DOSE CT LUNG CANCER SCREENING REASON FOR EXAM: Female, 62 years old. Lung cancer screening -- and gt;20 pk yr hx;former smoker;asymptomatic RADIATION DOSAGE (If Supplied By Facility): CTDIvol = ( 3.18 ) mGy, DLP = ( 107.61 ) mGycm TECHNIQUE: No contrast was administered. Low dose technique was utilized (average mAS-38 and kVp 120). 1.25 mm axial source images with a slice interval of 1.25-mm were reconstructed in lung windows. 2.5 mm axial source images with a slice interval of 2.5-mm were reconstructed in lung windows. 5.0 mm axial source images with a slice interval of 5.0-mm were reconstructed in soft tissue windows. COMPARISON: Comparison is made with prior study dated June 13, 2022. NODULES: No suspicious nodules are seen. Emphysema: No significant emphysematous changes seen. Endobronchial lesion: None Aorta: Atherosclerotic plaque formation of the aortic arch. CORONARY ARTERIES: Coronary artery calcification is seen. Heart: Unremarkable Pulmonary artery: Unremarkable Mediastinal nodes: Small mediastinal lymph nodes. Other chest and abdominal findings: 4.2 cm cyst in the anterior aspect of the left lobe of the liver. CT/Low Dose CT Lung Screening IMPRESSION: Lung-RADS category 2 - Continue annual screening with LDCT in 12 months. IMPORTANT NOTES FOR USE: ACR Lung-RADS Version 1.1 Assessment Categories Release Date: 2018 Category: Coded 0-4 bases on nodule(s) with highest degree of suspicion. Negative screen is defined as categories 1 and 2; a positive screen is defined as categories 3 and 4. Category 3 and 4A nodules that are unchanged on interval CT should be coded as category 2, and individuals returned to screening in 12 months. Category 4X: Category 3 or 4 nodules with additional imaging findings that increase the suspicion of lung cancer, such as spiculation, GGN that doubles in size in 1 year, enlarged lymph notes, etc. Category Modifiers: S (significant finding unrelated to lung cancer) Electronically Signed: Mateus Valentino MD at 13:36 EST ,
--- OUTSIDE RECORDS SUMMARY | 2023-06-19 12:36 | XMS RPT_ITS | CCD ---
Author Name Unknown Address [address] [place] [address] Organization [facility] Results Test Name Value Interpretation Reference Range Facil ity Progress note 08-12-2020 Note Date & Type Note Facility 08-12-2020 Note HNO ID: [id number] Author: Aristides Garibay MA Service: ? Author Type: ? Type: Progress Notes Filed: 08/12/2020 8:29 AM Note Text: Pt responded and noted that she is no longer following with Dr. Mcneil as PCP. Chart has been updated. Aristides Garibay MA [facility] Progress note 08-11-2020 Note Date & Type Note Facility 08-11-2020 Note HNO ID: [id number] Author: Aristides Garibay MA Service: ? Author Type: ? Type: Progress Notes Filed: 08/11/2020 7:32 PM Note Text: POPULATION HEALTH NAVIGATION OUTREACH Action/FYI Pt has been sent a [employer] message notifying her that she is due for a f/u in regards to HTN/Lipids. Pt is active on mychart with most recent ly active on 07/17/20. Pt has been notified to contact office by [employer] or phone to setup an appt with PCP or [facility]. Contact made with patient or family member? YES Pt identified by name and : NA Outreach Outcome/Action [employer] message sent Reason for Outreach Care Gap or Scheduling/Wellness visits Payer: Payor: [employer] / Plan: [place] PRE[employer] / Product Type: PPO / Care Gap Reviewed:: Annual Wellness visit Follow-up appointment Reminder: Reminder note to check Health Maintenance for items below Health Maintenance items due: HIV SCREENING Completed BP CONTROLLED (<130/80) Completed DTAP,TDAP,TD(1 - Tdap) Completed SHINGRIX VACCINE(1 of 2) Completed DEPRESSION SCREENING due on 01/07/2019 INFLUENZA(1) due on 01/20/2020 ANNUAL PCP TEAM CHRONIC DISEASE VISIT due on 01/25/2020 MAMMOGRAM due on 07/22/2020 Message Sent to Practice: YES Navigation Signature: Aristides Garibay MA August 11, 2020 7:28 PM [facility] Clinical Note 08-11-2020 Note Date & Type Note Facility 08-11-2020 Note Patient Outreach (FA MPWS) LONG ALMONTE ([id number]) 1960 F Date Time Provider Department 08/11/20 ARISTIDES GARIBAY) DEMETRICE During your visit today, we recorded the following information about you: Aristides Garibay MA 08/11/2020 7:32 PM Signed POPULATION HEALTH NAVIGATION OUTREACH Action/I Pt has been sent a [employer] message notifying her that she is due for a f/u in regards to HTN/Lipids. Pt is active on [employer] with most recent ly active on 07/17/20. Pt has been notified to contact office by [employer] or phone to setup an appt with PCP or [facility]IST. Contact made with patient or family member? YES Pt identified by name and : NA Outreach Outcome/Action [employer] message sent Reason for Outreach Care Gap or Scheduling/Wellness visits Payer: Payor: [facility] / Plan: [place] PRE[employer]ER / Product Type: PPO / Care Gap Reviewed:: Annual Wellness visit Follow-up appointment Reminder: Reminder note to check Health Maintenance for items below Health Maintenance items due: HIV SCREENING Completed BP CONTROLLED (<130/80) Completed DTAP,TDAP,TD(1 - Tdap) Completed SHINGRIX VACCINE(1 of 2) Completed DEPRESSION SCREENING due on 01/07/2019 INFLUENZA(1) due on 01/20/2020 ANNUAL PCP TEAM CHRONIC DISEASE VISIT due on 01/25/2020 MAMMOGRAM due on 07/22/2020 Message Sent to Practice: YES Navigation Signature: Aristides Garibay MA August 11, 2020 7:28 PM Aristides Garibay MA 08/12/2020 8:29 AM Signed Pt responded and noted that she is no longer following with Dr. Mcneil as PCP. Chart has been updated. Aristides Garibay MA Allergies As of Date: 08/11/2020 Noted Allergy Reaction METRONIDAZOLE 02/05/2018 8 - GI Upset Date Reviewed: 05/01/2019 Reviewed by: Cleo Wilcox Ma - Fully Assessed Reason for Visit: PHMA/Care Gap Outreach [[id number]] Cmt: HTN/Lipids Prescriptions as of 08/11/2020 Sig: CYCLOBENZAPRINE 10 MG TABLET Take 1 tablet by mouth three * HYDROCHLOROTHIAZIDE 25 MG TAB* Take 1 tablet by mouth once d* OMEPRAZOLE 20 MG CAPSULE,SATYA* Take 1 capsule by mouth daily* ATORVASTATIN 20 MG TABLET Take 1 tablet by mouth once d* RAMIPRIL 5 MG CAPSULE Take 2 capsules by mouth once* HYOSCYAMINE SULFATE 0.125 MG * Take 1 tablet by mouth every * ONDANSETRON 4 MG DISINTEGRATI* Take 1 tablet by mouth every * Patient not taking: Reported on 05/01/2019 MAGNESIUM 200 MG TABLET Take 400 mg by mouth once mariya* CYANOCOBALAMIN (VIT B-12) 2,5* Dissolve 2,500 mcg under the * NITROGLYCERIN 0.4 MG SUBLINGU* Dissolve 1 tablet under the t* LEVOTHYROXINE 150 MCG TABLET Take 1 tablet by mouth once d* CHOLECALCIFEROL (VITAMIN D3) * Take 1 tablet by mouth once d* Problem List As Of Date 08/11/2020 Noted Resolved HYPERTENSION NOS [I10] 03/01/2005 SCIATICA [M54.30] 08/17/2005 Syncope and collapse [R55] 05/29/2007 02/22/2016 CHEST PAIN NOS [R07.9] 05/29/2007 Abdominal pain, unspecified site [R10.9] 03/09/2011 Acute gastritis without mention of hemorrhage [*03/09/2011 Vitamin D deficiency [E55.9] 08/16/2013 Nontoxic multinodular goiter [E04.2] 09/02/2013 Acquired hypothyroidism [E03.9] 11/16/2015 Obesity, Class III, BMI 40-49.9 (morbid obesity*08/22/2017 Encounter Status:Closed by ARISTIDES GARIBAY MA on 08/11/20 [facility] Summary Purpose Family History No Family History Records Found Advance Directives No Advanced Directives Records Found Additional Source Comments INFORMATION SOURCE (unrecogn ized section and content) FOR RECORDS PERTAINING TO PATIENTS WHO ARE OR HAVE BEEN ENROLLED IN A CHEMICAL DEPENDENCY/SUBSTANCEABUSE PROGRAM, SOME INFORMATION MAY BE OMITTED. This clinical summary was aggregated from multiple sources. Caution should be exercised in using it in the provision of clinical care. This summary normalizes information from multiple sources, and as a consequence, information in this document may materially change the coding, format and clinical context of patient data. In addition, data may be omitted in some cases. CLINICAL DECISIONS SHOULD BE BASED ON THE PRIMARY CLINICAL RECORDS. [employer] [facility]. provides no warranty or guarantee of the accuracy or completeness of information in this document.
== END | disposition home or self-care (01) ==
LOC: CT 12:17
PROVIDERS: PCP Internal Medicine; Referring Provider Nurse Practitioner Family; Visit Provider Nurse Practitioner Family
DX: Z12.2 Encounter for screening for malignant neoplasm of respiratory organs (principal); Z87.891 Personal history of nicotine dependence
CPT/HCPCS: 71271

== ENCOUNTER → 2023-07-23 | Outpatient (CLI) | payer OTHER, SELFPAY ==
[2023-07-23 12:58] LABS: Anion Gap 5 (5-15); BUN 19 mg/dL (7-18); BUN/Creat Ratio 25.2 RATIO (10-20); Calcium,Total 9.9 mg/dL (8.5-10.1); Chloride 106 mmol/L (98-107); Creatinine, Serum 0.76 mg/dL (0.55-1.02); EST Glomerular Filtration Rate 83 mL/min (>60); Est Glom Filt Rate - Afr Amer 100 mL/min (>60); Glucose 116 mg/dL (74-106); Magnesium 1.9 mg/dL (1.6-2.6); Potassium 3.9 mmol/L (3.5-5.1); Sodium Level 138 mmol/L (136-145)
[2023-07-23 17:08] LABS: Hemoglobin A1c 5.6 % (3.8-5.6)
== END | disposition home or self-care (01) ==
LOC: BIMLAB 08:26
PROVIDERS: PCP Internal Medicine; Visit Provider Internal Medicine
DX: I10 Essential (primary) hypertension (principal)
CPT/HCPCS: 36415; 80048; 83036; 83735

== ENCOUNTER → 2023-12-19 | Outpatient (CLI) | payer OTHER, SELFPAY ==
--- NOTE | 2023-12-19 11:58 | BI_ITS ---
MAMMOGRAPHY - BILATERAL SCREENING REASON FOR EXAM: Female, 63 years old. Routine annual screening examination. PERTINENT HISTORY: Sister with breast cancer. Mother with breast cancer. TECHNIQUE: Digital bilateral breast miguel (3D mammographic acquisition) in the CC and MLO projections. 2-D mediolateral oblique (MLO) and craniocaudad (CC) views of both breasts were obtained. CAD: Full Field Digital Mammography with Computer Added Detection was performed. COMPARISON: Comparison is made with prior study dated December 14, 2022 and November 30, 2021. FINDINGS: Breast Composition: The breasts are almost entirely fatty. There are no dominant masses or suspicious calcifications. Stable small benign-appearing bilateral axillary lymph nodes. No other significant abnormalities are identified. There has been no significant change since the prior study. BI/SCRN MAMM (CAD)W/MIGUEL BILAT IMPRESSION: Stable bilateral screening mammogram. Yearly follow-up mammogram recommended. (A) ASSESSMENT CATEGORY: BIRADS Category 2: Benign. A letter regarding these results will be sent to the patient by the facility within 30 days. Approximately 10% of breast cancers are not detected by mammography. A normal mammogram should not delay biopsy of a clinically suspicious abnormality. [id number] Electronically Signed: Mateus Valentino MD at 13:13 EDT ,
== END | disposition home or self-care (01) ==
LOC: OPBI 11:58
PROVIDERS: PCP Internal Medicine; Referring Provider Internal Medicine; Visit Provider Internal Medicine
DX: Z12.31 Encounter for screening mammogram for malignant neoplasm of breast (principal)
CPT/HCPCS: 77063; 77067

== ENCOUNTER → 2024-03-12 | Outpatient (CLI) | payer OTHER, SELFPAY ==
--- OUTSIDE RECORDS SUMMARY | 2024-03-12 07:09 | XMS RPT_ITS | CCD ---
Author Organization [facility] Results Test Name Value Interpretation Reference Range Facil ity CNPNon 08-11-2020 CNPN Telephone (FAMPWS) LONG ALMONTE ([id number]) 1960 F Date Time Provider Department 08/11/20 EDISON REGALADO During your visit today, we recorded the following information about you: Edison Regalado MD 08/11/2020 6:24 PM Signed Please do Pt Outreach; overdue for follow up appt for HTN, lipids MD Aristides Ortez MA 08/11/2020 7:33 PM Signed Pt has been contacted via [employer] as it shows an active date in 06/2020. I have asked pt to contact office to setup an appt or update she is following with a different Provider. See outreach encounter that has been started if pt returns call. Airstides Garibay MA Allergies As of Date: 08/11/2020 Noted Allergy Reaction METRONIDAZOLE 02/05/2018 8 - GI Upset Date Reviewed: 05/01/2019 Reviewed by: Cleo Wilcox Ma - Fully Assessed Reason for Visit: PHMA/Care Gap Outreach [[id number]] Prescriptions as of 08/11/2020 Sig: CYCLOBENZAPRINE 10 [...] Status:Closed by ARISTIDES GARIBAY MA on 08/11/20 Normal [facility] Progress note 08-12-2020 Note Date & Type Note Facility 08-12-2020 Note HNO ID: [id number] Author: Aristides Garibay MA Service: ? Author Type: ? Type: Progress Notes Filed: 08/12/2020 8:29 AM Note Text: Pt responded and noted that she is no longer following with Dr. Regalado as PCP. Chart has been updated. Aristides Garibay MA [facility] Progress note 08-11-2020 Note Date & Type Note Facility 08-11-2020 Note HNO ID: [id number] Author: Aristides Garibay MA Service: ? Author Type: ? Type: Progress Notes Filed: 08/11/2020 7:32 PM Note Text: POPULATION HEALTH NAVIGATION OUTREACH Action/FYI Pt has been sent a [employer] message notifying her that she is due for a f/u in regards to HTN/Lipids. Pt is active on mychart with most recent ly active on 07/17/20. Pt has been notified to contact office by [employer] or phone to setup an appt with PCP or [facility]. Contact made with patient or family member? YES Pt identified by name and : NA Outreach Outcome/Action [employer] message sent Reason for Outreach Care Gap or Scheduling/Wellness visits Payer: Payor: [facility] / Plan: [place] PRE[employer]ER / Product Type: PPO / Care [...] Garibay MA August 11, 2020 7:28 PM [facility] Clinical Note 08-11-2020 Note Date & Type Note Facility 08-11-2020 Note Patient Outreach (FA MPWS) LONG ALMONTE ([id number]) 1960 F Date Time Provider Department 08/11/20 ARISTIDES GARIBAY) DEMETRICE During your visit today, we recorded the following information about you: Aristides Garibay MA 08/11/2020 7:32 PM Signed POPULATION HEALTH NAVIGATION OUTREACH Action/FYI Pt has been sent a [employer] message notifying her that she is due for a f/u in regards to HTN/Lipids. Pt is active on mychart with most recent ly active on 07/17/20. Pt has been notified to contact office by [employer] or phone to setup an appt with PCP or [facility] P[facility]. Contact made with patient or family member? YES Pt identified by name and : NA Outreach Outcome/Action [employer] message sent Reason for Outreach Care Gap or Scheduling/Wellness visits Payer: Payor: [facility] / Plan: [place] [employer] / Product Type: PPO / Care [...] she is no longer following with Dr. Regalado as PCP. Chart has been updated. Aristides Garibay MA Allergies As of Date: 08/11/2020 Noted Allergy Reaction METRONIDAZOLE 02/05/2018 8 - GI Upset Date Reviewed: 05/01/2019 Reviewed by: Cleo Wilcox Ma - Fully Assessed Reason for Visit: PHMA/Care Gap Outreach [[id number]] Cmt: HTN/Lipids Prescriptions as of 08/11/2020 Sig: [...] Status:Closed by ARISTIDES GARIBAY MA on 08/11/20 [facility] Summary Purpose Family History No Family History Records Found Advance Directives No Advanced Directives Records Found Additional Source Comments INFORMATION SOURCE (unrecogn ized section and content) DATE CREATED AUTHOR 07/11/2021 [facility] FOR RECORDS PERTAINING TO PATIENTS WHO ARE [...] BE BASED ON THE PRIMARY CLINICAL RECORDS. [facility] [employer] [facility]. provides no warranty or guarantee of the accuracy or completeness of information in this document.
[2024-03-12 07:13] LABS: Bacteria 0 SEEN /hpf (None Seen); Mucous, Urine 0 SEEN /hpf (<or=2+); Red Blood Cells-Urine 0 SEEN /hpf (0-5)
[2024-03-12 07:50] LABS: Absolute Lymphocyte Count 2.21 X10^3/uL (0.83-4.51); Absolute Neutrophil Count 2.7 X10^3/uL (2.0-7.7); Basophil# 0.02 X10^3/uL; Basophil% 0.4 % (0-1); Eosinophil# 0.13 X10^3/uL; Eosinophils% 2.4 % (0-5); Hematocrit 38.4 % (37-47); Lymphocyte # 2.21 X10^3/ul (0.83-4.51); Lymphocyte % 40.6 % (19-41); Mean Corp Hgb Conc 33.9 g/dL (32-36); Mean Corpuscular Hgb 32.2 pg (27.0-32.0); Mean Platelet Vol. 11.6 fl (6.2-12.0); Monocyte# 0.34 X10^3/uL; Monocyte% 6.2 % (0-10); NRBC Flagged by Analyzer 0 % (0-5); Neutrophil # 2.74 X10^3/uL (2.7-7.7); Neutrophil % 50.2 % (47-70); Platelet Count 223 K/mm3 (150-450); RBC Distribution Width CV 12.1 % (11.6-14.6); RBC Distribution Width SD 42.1 fl (35.1-43.9); Red Blood Count 4.04 M/mm3 (4.2-5.4); White Blood Count 5.5 K/mm3 (4.4-11.0)
[2024-03-12 07:53] LABS: Color, Urine Yellow (Yellow); Glucose, Dipstick Normal (Normal); Ketone-Dipstick Negative (Negative); Leukocyte Esterase-Dipstick 100 /ul (Negative); Nitrite-Dipstick Negative (Negative); Occult Blood-Urine Negative /ul (Negative); Protein-Dipstick Negative (Negative); Urine Bilirubin Dipstick Negative (Negative); Urine Clarity Sl. Cloudy (Clear); Urine Urobilinogen Normal (Normal)
[2024-03-12 08:00] LABS: Squamous Epithelial Cells - UA 0-5 SEEN /hpf (5-10); White Blood Cells 0-5 SEEN /hpf (0-5)
[2024-03-12 08:12] LABS: Vitamin D,25 Hydroxy 59.6 ng/mL
[2024-03-12 08:18] LABS: Hemoglobin A1c 5.2 % (3.8-5.6)
[2024-03-12 08:19] LABS: ALB/GLOB Ratio 1.1 RATIO (0.9-2.4); AST(SGOT) 12 U/L (15-37); Alanine Aminotransfer ALT/SGPT 23 U/L (13-56); Albumin, Serum 3.7 g/dL (3.2-5.0); Alkaline Phosphatase 65 U/L (45-117); Anion Gap 4 (5-15); BUN 28 mg/dL (7-18); BUN/Creat Ratio 36.8 RATIO (10-20); Chloride 108 mmol/L (98-107); Cholesterol 149 mg/dL (200); Creatinine, Serum 0.76 mg/dL (0.55-1.02); EST Glomerular Filtration Rate 82 mL/min (>60); Est Glom Filt Rate - Afr Amer 99 mL/min (>60); Globulin 3.4 g/dL (2.2-4.2); Glucose 105 mg/dL (74-106); High Density Lipoprotein 55 mg/dL; Potassium 3.9 mmol/L (3.5-5.1); Protein, Total 7.1 g/dL (6.4-8.2); Sodium Level 140 mmol/L (136-145); Triglycerides 34 mg/dL; Very Low Density Lipoprotein 7 mg/dL (5-40)
[2024-03-12 08:53] LABS: Microalbumin,Random Urine < 5.0 mg/L (NO RANGE EST.)
== END | disposition home or self-care (01) ==
LOC: LAB 07:07
PROVIDERS: PCP Internal Medicine; Referring Provider Internal Medicine; Visit Provider Internal Medicine
DX: I10 Essential (primary) hypertension (principal); E03.9 Hypothyroidism, unspecified; E55.9 Vitamin D deficiency, unspecified; R73.9 Hyperglycemia, unspecified
CPT/HCPCS: 36415; 80053; 80061; 81001; 82043; 82306; 82570; 83036; 84443; 85025

== ENCOUNTER 2024-04-14 09:00 | Day surgery (SDC) | payer OTHER, SELFPAY ==
--- NOTE | 2024-04-15 07:24 | EKG12_ITS ---
Test Reason : PRE OP Blood Pressure : */* mmHG Vent. Rate : 73 BPM Atrial Rate : 73 BPM P-R Int : 164 ms QRS Dur : 82 ms QT Int : 382 ms P-R-T Axes : 46 -12 43 degrees QTcB Int : 420 ms Normal sinus rhythm Normal ECG Confirmed by Haseeb Sanchez ([id number]), senior technical editor MARGARITA RODRIGUEZ ([id number]) on 04/15/2024 1:03:26 PM Referred By: Pradeep Villa Confirmed By: Haseeb Sanchez
[2024-04-15 08:32] LABS: Hematocrit 38.9 % (37-47); Hemoglobin 13.3 g/dL (12.0-15.0); Mean Corp Hgb Conc 34.2 g/dL (32-36); Mean Corpuscular Hgb 32.5 pg (27.0-32.0); Mean Corpuscular Volume 95.1 fL (81-99); Mean Platelet Vol. 11.5 fl (6.2-12.0); Platelet Count 259 K/mm3 (150-450); RBC Distribution Width CV 12.2 % (11.6-14.6); RBC Distribution Width SD 42.3 fl (35.1-43.9); Red Blood Count 4.09 M/mm3 (4.2-5.4); White Blood Count 5.7 K/mm3 (4.4-11.0)
[2024-04-15 09:11] LABS: Anion Gap 3 (5-15); BUN 17 mg/dL (7-18); Calcium,Total 9.2 mg/dL (8.5-10.1); Chloride 108 mmol/L (98-107); Creatinine, Serum 0.68 mg/dL (0.55-1.02); EST Glomerular Filtration Rate 93 mL/min (>60); Est Glom Filt Rate - Afr Amer 113 mL/min (>60); Glucose 104 mg/dL (74-106); Potassium 3.6 mmol/L (3.5-5.1); Sodium Level 139 mmol/L (136-145)
== END 2024-04-14 23:00 | disposition home or self-care (01) ==
LOC: PAT 09-12 16:54
PROVIDERS: PCP Internal Medicine; Referring Provider Otolaryngology; Visit Provider Otolaryngology
DX: Z01.818 Encounter for other preprocedural examination (principal)
CPT/HCPCS: 36415; 80048; 85027; 93005

== ENCOUNTER → 2024-09-23 | Outpatient (CLI) | payer BC, SELFPAY ==
--- NOTE | 2024-09-23 13:08 | CT_ITS ---
PROCEDURE: LOW DOSE CT LUNG SCREENING 09/23/2024 REASON FOR EXAM: LUNG CANCER SCREENING TECHNIQUE: Low Dose CT Lung screening without contrast. Coronal and Sagittal reconstruction series were provided. One or more dose reduction techniques were used (e.g., Automated exposure control, adjustment of the mA and/or kV according to patient size, use of iterative reconstruction technique). [facility] COMPARISON: CT chest 06/19/2023 and 06/09/2022 FINDINGS: PULMONARY NODULES: (Only nodules >3mm are reported) Hardware:None Lymph Nodes:No suspicious adenopathy. Heart and Vasculature:No cardiomegaly. Minimal atherosclerotic calcifications.Atherosclerotic calcifications of the thoracic aorta. Thoracic aorta and pulmonary arteries have normal contours; noncontrast technique limits evaluation. Coronary Artery Calcifications: Minimal Lungs and Airways: Central airways are patent without endobronchial lesions. No suspicious pulmonary nodule. No focal consolidation. No pneumothorax. Upper Abdomen:Stable 4.2 cm left hepatic lobe simple cyst. Partially imaged exophytic right upper pole simple renal cyst. Bones:Degenerative changes of the thoracic spine. Esophagus is nondilated. CT/Low Dose CT Lung Screening IMPRESSION: No suspicious pulmonary nodule or adenopathy. Lung-RADS Category: 1 NEGATIVE. RECOMMEND 12-MONTH SCREENING LDCT. Other Significant Findings: None. Reading Location: [facility]
== END | disposition home or self-care (01) ==
LOC: CT 13:08
PROVIDERS: PCP Internal Medicine; Referring Provider Nurse Practitioner Family; Visit Provider Nurse Practitioner Family
DX: Z12.2 Encounter for screening for malignant neoplasm of respiratory organs (principal); Z87.891 Personal history of nicotine dependence
CPT/HCPCS: 71271

== ENCOUNTER → 2024-11-07 | Outpatient (CLI) | payer BC, SELFPAY ==
--- OUTSIDE RECORDS SUMMARY | 2024-11-07 06:45 | XMS RPT_ITS | CCD ---
Author Organization [facility] Care Team Providers Care Screen Cleaner Name Role Phone Dr. Tayler Cedeño Primary Care Provider [phone] Dr. Tayler Cedeño Attending Provider [phone] Dr. Tayler Cedeño Referring Provider [phone] Dr. Tayler Cedeño Other Provider [phone] Dr. Melquiades Cabrera Attending Provider Dr. Tayler Cedeño Primary Care Provider [phone] Dr. Tayler Cedeño Referring Provider [phone] Ike CORPORATE QUALITY MANAGER, CORPORATE QUALITY MANAGER-C Edison Attending Provider Dr. Oscar Hong Attending Provider Dr. Killian Ball Attending Provider Dr. Killian Ball Referring Provider Dr. Killian Ball Other Provider Rodolfo CORPORATE QUALITY MANAGER, CORPORATE QUALITY MANAGER-C Oksana Attending Provider Dr. Tayler Cedeño Primary Care Provider [phone] Dr. Tayler Cedeño Referring Provider [phone] Rodolfo CORPORATE QUALITY MANAGER, CORPORATE QUALITY MANAGER-C Oksana Referring Provider Dr. Tayler Cedeño Primary Care Provider [phone] Dr. Tayler Cedeño Referring Provider [phone] Oneida SOARES, RODGER Ann Attending Provider Dr. Tayler Cedeño Primary Care Provider [phone] Dr. Tayler Cedeño Attending Provider [phone] Dr. Tayler Cedeño Referring Provider [phone] Dr. Tayler Cedeño Primary Care Provider [phone] Dr. Tayler Cedeño Referring Provider [phone] Dr. Oscar Hong Attending Provider [phone] Rodolfo CORPORATE QUALITY MANAGER, CORPORATE QUALITY MANAGER-C Oksana Attending Provider Rodolfo CORPORATE QUALITY MANAGER, CORPORATE QUALITY MANAGER-C Oksana Referring Provider Oneida SOARES, RODGER Ann Attending Provider Dr. Tayler Cedeño Attending Provider [phone] Dr. Marielos Torres DO Primary Care Provider Brian MARTIN, Dr. Arceo Referring Provider Rodolfo CORPORATE QUALITY MANAGER-C, Oksana Attending Provider Rodolfo CORPORATE QUALITY MANAGER-C, Oksana Referring Provider Brian Marielos Attending Unavailable Brian, Marielos Referring Unavailable Brian, Marielos Primary Care Unavailable Brian, Marielos Primary Care Unavailable Rodolfo CORPORATE QUALITY MANAGER, Oksana Attending Unavailable Rodolfo CORPORATE QUALITY MANAGER, Oksana Referring Unavailable Brian, Marielos Attending Unavailable Brian, Marielos Referring Unavailable Brian, Marielos Primary Care Unavailable Brian, Marielos Primary Care Unavailable Rodolfo CORPORATE QUALITY MANAGER, Oksana Attending Unavailable Rodolfo CORPORATE QUALITY MANAGER, Oksana Referring Unavailable Brian, Marielos Attending Unavailable Brian, Marielos Referring Unavailable Brian, Marielos Primary Care Unavailable Haseeb Sanchez Attending Unavailable Daisy, Pradeep Referring Unavailable Brian, Marielos Primary Care Unavailable Pradeep Villa Attending Unavailable Daisy, Pradeep Referring Unavailable Brian, Marielos Primary Care Unavailable Rodolfo CORPORATE QUALITY MANAGER, Oksana Referring Unavailable Brian, Marielos Primary Care Unavailable Rodolfo CORPORATE QUALITY MANAGER, Oksana Attending Unavailable Allergies Allergy Classification Reported Allergen(s) Allergy Type Date of Onset Reaction(s) Facility (10 sources) metroNIDAZOLE Drug Allergy 2 Nausea/Vom/Diar scarlett [facility] (1 source) metroNIDAZOLE Drug Allergy 5 [facility] Repository Medications Current Medications Medication Drug Class(es) Dates Sig (Normalized) Sig (Original) cholecalciferol 0.05 mg oral capsule (20 sources) Vitamin D Start: 07-17-2019 take 1 capsule by mouth once daily Cholecalciferol (Vitamin D3) 50 mcg (2,000 unit) capsule Active 2000 U PO DAILY July 17, 2019 5:21pm Start: 04-27-2017 End: 07-17-2019 take 1 capsule by mouth once Cholecalciferol (Vitamin D3) 2,000 unit capsule Discontinued 2000 U PO ONCE April 27, 2017 1:00am July 17, 2019 5:21pm ramipril 10 mg oral capsule (20 sources) Angiotensin Converting Enzyme Inhibitor Start: 04-14-2024 take 1 capsule by mouth once daily Ramipril 10 mg capsule Active 10 mg PO DAILY April 14, 2024 1:00am Start: 03-18-2021 End: 04-14-2024 take 1 capsule by mouth twice daily Ramipril 10 mg capsule Discontinued 10 mg PO TWICE A DAY 180 April 05, 2023 9:42pm April 14, 2024 10:12am Start: 02-17-2020 End: 03-18-2021 take 1 capsule by mouth once daily Ramipril 10 mg capsule Discontinued 10 mg PO DAILY February 22, 2021 10:35am March 18, 2021 11:00am Start: 07-30-2019 End: 02-17-2020 take 5 mg by mouth twice daily Ramipril 10 mg capsule Discontinued 5 mg PO TWICE A DAY July 30, 2019 3:34pm February 17, 2020 2:16pm Start: 07-30-2019 End: 02-17-2020 take 5 mg by mouth twice daily Ramipril Discontinued 5 MG PO TWICE A DAY July 30, 2019 2:34pm February 17, 2020 1:16pm Start: 04-27-2017 End: 07-30-2019 take 1 capsule by mouth once daily Ramipril 10 mg capsule Discontinued 10 mg PO DAILY April 27, 2017 1:00am July 30, 2019 3:35pm Start: 12-08-2013 End: 04-27-2017 take 1 capsule by mouth once daily Ramipril 5 MG capsule Discontinued 5 mg PO DAILY December 08, 2013 12:00am April 27, 2017 4:42pm Completed/Discontinued Medications Medication Drug Class(es) Dates Sig (Normalized) Sig (Original) acetaminophen 325 mg / HYDROcodone bitartrate 5 mg oral tablet (10 sources) Opioid Agonist Start: 04-16-2020 End: 04-19-2020 Hydrocodone-Acetami nophen 1 TABLET tablet Discontinued 1 {tbl} PO EVERY 6 HOURS NEEDED as needed for Pain 02 20April 16, 2020 April 18, 2020 1:00am April 19, 2020 1:03am Start: 04-16-2020 End: 04-19-2020 take 1 tablet by mouth every six hours as needed Hydrocodone-Acetaminophen Discontinued 1 TABLET PO EVERY 6 HOURS NEEDED 02 20April 16, 2020 April 19, 2020 12:03am [id number] 200 actuat albuterol 0.09 mg/actuat metered dose inhaler (16 sources) beta2-Adrenergic Agonist Start: 10-10-2021 take 1 puff(s) by inhalation every six hours Albuterol Sulfate Active 2 PUFF INHALATION EVERY 6 HOURS 8.5 October 10, 2021 3:19pm Start: 10-10-2021 End: 04-14-2024 Albuterol Sulfate 90 mcg/act uation HFA aerosol inhaler Discontinued 2 NMA INHALATION EVERY 6 HOURS as needed August 24, 2022 12:00am April 14, 2024 10:11am Start: 10-10-2021 End: 08-24-2022 take 1 puff(s) by inhalation every six hours Albuterol Sulfate Active 2 PUFF INHALATION EVERY 6 HOURS August 23, 2022 11:00pm amLODIPine 2.5 mg oral tablet (20 sources) Dihydropyridine Calcium Channel Nuzhat Start: 04-06-2023 End: 04-14-2024 take 1 tablet by mouth once daily Amlodipine 2.5 mg tablet Discontinued 2.5 mg PO DAILY April 06, 2023 1:00am April 14, 2024 10:11am Start: 05-10-2021 End: 08-24-2022 take 1 tablet by mouth once daily Amlodipine (Norvasc) 2.5 mg tablet Discontinued 2.5 mg PO DAILY April 07, 2022 5:41pm August 24, 2022 10:47am amoxicillin 500 mg oral capsule (3 sources) Penicillin-class Antibacterial Start: 07-03-2023 End: 07-13-2023 take 1 capsule by mouth three times daily Amoxicillin 500 mg capsule Discontinued 500 mg PO THREE TIMES A DAY 19 03July 03, 2023 1:00am July 12, 2023 1:00am July 13, 2023 1:05am ascorbic acid 500 mg extended release oral tablet (10 sources) Vitamin C Start: 05-31-2021 End: 02-22-2022 take 1 tablet by mouth once daily Ascorbic Acid (Vitamin C) 500 mg tablet extended release Discontinued 500 mg PO DAILY May 31, 2021 1:00am February 22, 2022 8:23am atorvastatin 20 mg oral tablet (20 sources) HMG-CoA Reductase Inhibitor Start: 08-24-2022 End: 02-21-2023 take 1 tablet by mouth once daily Atorvastatin 20 mg tablet Discontinued 20 mg PO DAILY August 24, 2022 12:00am February 21, 2023 1:43pm On Hold: Pt refuses the test Start: 09-11-2019 End: 09-25-2019 take 1 tablet by mouth at bedtime Atorvastatin 20 mg tablet Discontinued 20 mg PO AT BEDTIME September 11, 2019 12:00am September 25, 2019 3:32pm Start: 06-27-2018 End: 07-30-2019 take 1 tablet by mouth once daily Atorvastatin 20 MG tablet Discontinued 20 mg PO DAILY June 27, 2018 1:00am July 30, 2019 4:06pm ciprofloxacin 500 mg oral tablet (10 sources) Quinolone Antimicrobial Start: 04-14-2020 End: 05-18-2020 take 1 tablet by mouth twice daily Ciprofloxacin Hcl (Cipro) 500 mg tablet Discontinued 500 mg PO TWICE A DAY April 14, 2020 1:00am May 18, 2020 2:32pm cyclobenzaprine hydrochloride 10 mg oral tablet (20 sources) Muscle Relaxant Start: 02-05-2020 End: 08-24-2022 take 1 tablet by mouth at bedtime as needed for muscle spasms Cyclobenzaprine 10 mg tablet Discontinued 10 mg PO AT BEDTIME as needed for muscle spasm 60 May 19, 2021 1:39pm July 14, 2022 4:27pm hydroCHLOROthiazide 25 mg oral tablet (20 sources) Thiazide Diuretic Start: 06-27-2018 End: 01-22-2024 take 1 tablet by mouth once daily Hydrochlorothiazide 25 mg tablet Discontinued 25 mg PO DAILY April 05, 2023 9:43pm January 22, 2024 12:32pm hyoscyamine sulfate 0.125 mg oral tablet (10 sources) Start: 07-17-2019 End: 07-30-2019 take 1 tablet by mouth every four hours as needed Hyoscyamine Sulfate 0.125 mg tablet Discontinued 0.125 mg PO Q4H as needed July 17, 2019 1:00am July 30, 2019 3:35pm indomethacin 25 mg oral capsule (10 sources) Nonsteroidal Anti-inflammator y Drug Start: 09-11-2019 End: 09-25-2019 take 1 capsule by mouth three times daily at mealtime Indomethacin 25 mg capsule Discontinued 25 mg PO THREE TIMES A DAY September 11, 2019 12:00am September 25, 2019 3:33pm administer with food or milk levothyroxine sodium 0.137 mg oral tablet (20 sources) l-Thyroxine Start: 09-25-2019 End: 06-01-2023 Levothyroxine 137 mcg tablet Discontinued 137 ug PO DAILY June 09, 2022 2:55pm June 01, 2023 4:57pm Take 1 pill sunday thru sunday Take 1 and 1/2 pill on sundays Start: 07-02-2018 End: 09-25-2019 take 1 tablet by mouth once daily Levothyroxine 150 mcg tablet Discontinued 150 ug PO DAILY July 17, 2019 5:20pm September 25, 2019 3:50pm Start: 06-27-2018 End: 07-02-2018 Levothyroxine 75 MCG tablet Discontinued 75 ug PO WE June 27, 2018 1:00am July 02, 2018 11:25am Start: 04-27-2017 End: 06-27-2018 take 1 capsule by mouth once daily Levothyroxine 150 mcg capsule Discontinued 150 ug PO daily December 14, 2017 6:52am June 27, 2018 3:31pm Start: 12-16-2013 End: 04-27-2017 take 1 tablet by mouth once daily Levothyroxine 100 MCG tablet Discontinued 100 ug PO DAILY@0600 December 16, 2013 12:00am April 27, 2017 4:43pm Magnesium (10 sources) Start: 07-17-2019 End: 09-11-2019 take 400 mg by mouth once daily Magnesium Discontinued 400 MG PO DAILY July 17, 2019 5:19pm September 11, 2019 1:24pm Start: 07-17-2019 End: 09-11-2019 take 2 tablets by mouth once daily Magnesium 200 mg tablet Discontinued 400 mg PO DAILY July 17, 2019 1:00am September 11, 2019 1:24pm Start: 07-17-2019 End: 09-11-2019 take 400 mg by mouth once daily Magnesium Discontinued 400 MG PO DAILY July 17, 2019 1:00am September 11, 2019 1:24pm Start: 07-17-2019 End: 09-11-2019 take 400 mg by mouth once daily Magnesium Discontinued 400 MG PO DAILY July 17, 2019 12:00am September 11, 2019 12:24pm magnesium citrate 100 mg oral tablet (20 sources) Start: 10-10-2021 End: 08-24-2022 take 1 capsule by mouth once daily Magnesium Citrate 100 mg capsule Discontinued 100 mg PO DAILY October 10, 2021 12:00am August 24, 2022 10:47am Start: 04-19-2020 End: 11-24-2020 take 1 mL by mouth once Magnesium Citrate solution D iscontinued 300 mL PO ONCE 296 April 19, 2020 1:00am November 24, 2020 4:29pm as a single dose Start: 04-19-2020 End: 11-24-2020 take 1 mL by mouth once Magnesium Citrate Discontinu ed 300 ML PO ONCE 296 April 19, 2020 12:00am November 24, 2020 3:29pm as a single dose meloxicam 15 mg oral tablet (20 sources) Nonsteroidal Anti-inflammatory Drug Start: 05-18-2020 End: 08-24-2022 take 1 tablet by mouth once daily at mealtime for pain Meloxicam 15 mg tablet Discontinued 15 mg PO DAILY as needed for back pain April 10, 2022 2:31pm August 24, 2022 10:47am Take with food methylPREDNISolone 4 mg oral tablet (10 sources) Corticosteroid Start: 04-19-2020 End: 05-18-2020 take 1 tablet by mouth once Methylprednisolone (Medrol (Mark)) 4 mg tablets,dose pack Discontinued 0 PO per package directions April 19, 2020 1:00am May 18, 2020 2:32pm PO PER PKG DIR metroNIDAZOLE 250 mg oral tablet (10 sources) Nitroimidazole Antimicrobial Start: 04-14-2020 End: 05-18-2020 take 1 tablet by mouth every eight hours Metronidazole 250 mg tablet Discontinued 250 mg PO Q8H April 14, 2020 1:00am May 18, 2020 2:33pm Nirmatrelvir-Ritonavi r (6 sources) Start: 08-24-2022 End: 01-17-2023 Nirmatrelvir-Ritonav ir (Paxlovid (Eua)) 300 mg (150 mg x 2)-100 mg tablets,dose pack Discontinued 0 PO .COMPLEX August 23, 2022 11:00pm January 17, 2023 8:24am take TWO 150 mg tablets of nirmatrelvir with ONE 100 mg tablet of ritonavir twice daily for 5 days PO Start: 08-24-2022 End: 01-17-2023 Nirmatrelvir-Ritonavir (Paxl ovid (Eua)) 300 mg (150 mg x 2)-100 mg tablets,dose pack Discontinued 0 PO .COMPLEX August 24, 2022 12:00am January 17, 2023 9:24am take TWO 150 mg tablets of nirmatrelvir with ONE 100 mg tablet of ritonavir twice daily for 5 days PO Start: 08-24-2022 Nirmatrelvir-R itonavir (Paxlovid (Eua)) 300 mg (150 mg x 2)- 100 mg tablets,dose pack Active 0 PO .COMPLEX August 24, 2022 12:00am take TWO 150 mg tablets of nirmatrelvir with ONE 100 mg tablet of ritonavir twice daily for 5 days PO [place] (8 sources) Start: 06-27-2018 End: 07-02-2018 [place] Discontinued 150 MCG PO SUMOTUTHFRSA June 27, 2018 2:31pm July 02, 2018 10:25am Start: 06-27-2018 End: 07-02-2018 [place] Discontinued 150 MCG PO SUMOTUTHFRSA June 27, 2018 3:31pm July 02, 2018 11:25am [place] 150 mcg capsule (2 sources) Start: 06-27-2018 End: 07-02-2018 [place] 150 mcg capsule Discontinued 150 ug PO SUMOTUTHFRSA June 27, 2018 3:31pm July 02, 2018 11:25am omeprazole 20 mg delayed release oral capsule (20 sources) Proton Pump Inhibitor Start: 01-09-2016 End: 03-01-2023 take 1 capsule by mouth once daily Omeprazole 20 mg capsule,delayed release(DR/EC) Discontinued 20 mg PO DAILY 90 February 07, 2022 12:28pm March 01, 2023 6:33pm ondansetron 4 mg disintegrating oral tablet (10 sources) Serotonin-3 Receptor Antagonist Start: 07-17-2019 End: 07-30-2019 take 1 tablet by mouth every six hours as needed Ondansetron 4 mg tablet,disintegrati ng Discontinued 4 mg PO EVERY 6 HOURS as needed July 17, 2019 1:00am July 30, 2019 3:35pm triamcinolone acetonide 40 mg/ml injectable suspension (1 source) Corticosteroid Start: 04-19-2020 End: 04-19-2020 Kenalog (triamcinolone acetonide) 40 mg/mL suspension for injection Discontinued 60 MG INTRAARTIC ONCE 1.5 April 19, 2020 3:34pm April 19, 2020 4:27pm vitamin b12 2.5 mg oral tablet (10 sources) Vitamin B12 Start: 07-17-2019 End: 07-30-2019 take 1 tablet by mouth once daily Cyanocobalamin (Vitamin B-12) 2,500 mcg tablet Discontinued 2500 ug PO DAILY July 17, 2019 1:00am July 30, 2019 3:35pm vitamin e 90 mg oral capsule (10 sources) Start: 10-10-2021 End: 08-24-2022 take 1 capsule by mouth once daily Vitamin E 200 unit capsule Discontinued 200 U PO DAILY October 10, 2021 12:00am August 24, 2022 10:47am Problems Problem Classification Problem Date Documented Da te Episodic/Chronic Cancer of thyroid (12 sources) Malignant tumor of thyroid gland; Translations: [Malignant neoplasm of thyroid gland] 09-25-2019 Chronic Cancer of thyroid (10 sources) History of malignant neoplasm of thyroid; Translations: [Personal history of malignant neoplasm of thyroid] 03-04-2021 Episodic Comment on above: 2013 Cardiac dysrhythmias (1 source) Unspecified atrial fibrillation; Translations: [Unspecified atrial fibrillation] Onset: Chronic Cardiac dysrhythmias (11 sources) Palpitations; Translations: [Palpitations] 02-22-2022 Episodic Chronic obstructive pulmonary disease and bronchiectasis (11 sources) Chronic obstructive lung disease; Translations: [Chronic obstructive pulmonary disease, unspecified] Chronic Complications of surgical procedures or medical care (10 sources) Postoperative hypothyroidism; Translations: [Postprocedural hypothyroidism] 03-04-2021 Chronic Conditions associated with dizziness or vertigo (10 sources) Lightheadedness; Translations: [Dizziness and giddiness] 12-03-2019 Episodic Coronary atherosclerosis and other heart disease (10 sources) Calcification of coronary artery; Translations: [Atherosclerotic heart disease of [place] coronary artery without angina pectoris] 05-10-2021 Chronic Deficiency and other anemia (9 sources) Anemia; Translations: [Anemia, unspecified] 02-22-2022 Episodic Deficiency and other anemia (2 sources) Anemia, unspecified; Translations: [Anemia, unspecified] 02-22-2022 Episodic Diabetes mellitus without complication (20 sources) Prediabetes; Translations: [Prediabetes] 03-16-2021 Episodic Disorders of lipid metabolism (11 sources) Hyperlipidemia; Translations: [Hyperlipidemia, unspecified] 12-02-2019 Chronic Diverticulosis and diverticulitis (20 sources) Diverticular disease; Translations: [Diverticulosis of intestine, part unspecified, without perforation or abscess without bleeding] 03-04-2021 Chronic Esophageal disorders (10 sources) Gastroesophageal reflux disease; Translations: [Gastro-esophageal reflux disease without esophagitis] 06-27-2018 Chronic Essential hypertension (20 sources) Benign essential hypertension; Translations: [Essential (primary) hypertension] Onset: Chronic Nonspecific chest pain (10 sources) Finding of region of thorax; Translations: [Other chest pain] 05-10-2021 Episodic Osteoarthritis (10 sources) Arthritis; Translations: [Unspecified osteoarthritis, unspecified site] 04-16-2020 Chronic Other and unspecified benign neoplasm (10 sources) Bilateral lipoma of lower limbs; Translations: [Benign lipomatous neoplasm of skin and subcutaneous tissue of right leg] 11-24-2020 Episodic Other connective tissue disease (3 sources) Bilateral cramp of muscle of lower limbs; Translations: [Cramp and spasm] 07-23-2023 Episodic Other connective tissue disease (1 source) Cramp and spasm; Translations: [Cramp of limb] 07-23-2023 Episodic Other gastrointestinal disorders (10 sources) Gastrointestinal tract problem; Translations: [Other specified symptoms and signs involving the digestive system and abdomen] 07-17-2019 Episodic Other lower respiratory disease (9 sources) Dyspnea on exertion; Translations: [Other forms of dyspnea] 05-31-2022 Episodic Other nervous system disorders (10 sources) Carpal tunnel syndrome; Translations: [Carpal tunnel syndrome, unspecified upper limb] 03-04-2021 Chronic Other nutritional; endocrine; and metabolic disorders (10 sources) Morbid obesity; Translations: [Morbid (severe) obesity due to excess calories] 03-16-2021 Chronic Other nutritional; endocrine; and metabolic disorders (10 sources) Obesity; Translations: [Obesity, unspecified] 07-04-2021 Chronic Other nutritional; endocrine; and metabolic disorders (2 sources) Obesity, unspecified; Translations: [Obesity, unspecified] Chronic Other screening for suspected conditions (not mental disorders or infectious disease) (20 sources) Patient encounter status; Translations: [Encounter for screening for malignant neoplasm of respiratory organs] Onset: 4 04-05-2021 Episodic Residual codes; unclassified (10 sources) Obstructive sleep apnea syndrome; Translations: [Obstructive sleep apnea (adult) (pediatric)] 12-02-2019 Chronic Residual codes; unclassified (5 sources) Postmenopausal state; Translations: [Asymptomatic menopausal state] 01-17-2023 Episodic Residual codes; unclassified (1 source) Asymptomatic menopausal state; Translations: [Asymptomatic postmenopausal status (age-related) (natural)] 01-17-2023 Episodic Screening and history of mental health and substance abuse codes (16 sources) Tobacco use and exposure - finding; Translations: [Personal history of nicotine dependence] Onset: 5 04-05-2021 Episodic Spondylosis; intervertebral disc disorders; other back problems (20 sources) Lumbar radiculopathy; Translations: [Radiculopathy, lumbar region] 05-18-2020 Episodic Substance-related disorders (1 source) Nicotine dependence, cigarettes, uncomplicated; Translations: [Nicotine dependence, cigarettes, uncomplicated] Onset: 5 Chronic Thyroid disorders (17 sources) Hypothyroidism; Translations: [Hypothyroidism, unspecified] Chronic Viral infection (7 sources) Disease caused by 2019-nCoV; Translations: [COVID-19] 08-24-2022 Episodic Results Test Name Value Interpretation Reference Range Facility Low Dose CT Lung Screeningon 09-23-[address] Lung Screening [facility] [address] [place] [address] Lung Screening MR#: [id number] Acct: [id number] Name: LONG ALMONTE Rep #: [id number] : 1960 F 63 From: Moise rondon MD PCP: Dr. Marielos Torres DO Status: REG CLI Study: Low Dose CT Lung Screening Date of Exam: 09/23 Exam# [id number] Ordering Dr: Oksana Reynolds NP CORPORATE QUALITY MANAGER -C PROCEDURE: LOW DOSE CT LUNG SCREENING 09/23/2024 REASON FOR EXAM: LUNG CANCER SCREENING TECHNIQUE: Low Dose CT Lung screening without contrast. Coronal and Sagittal reconstruction series were provided. One or more dose reduction techniques were used (e.g., Automated exposure control, adjustment of the mA and/or kV according to patient size, use of iterative reconstruction technique). REFERENCE LINK: [email or web address] COMPARISON: CT chest 06/19/2023 and 06/09/2022 FINDINGS: PULMONARY NODULES: (Only nodules >3mm are reported) Hardware:None Lymph Nodes:No suspicious adenopathy. Heart and Vasculature:No cardiomegaly. Minimal atherosclerotic calcifications.Ather osclerotic calcifications of the thoracic aorta. Thoracic aorta and pulmonary arteries have normal contours; noncontrast technique limits evaluation. Coronary Artery Calcifications: Minimal Lungs and Airways: Central airways are patent without endobronchial lesions. No suspicious pulmonary nodule. No focal consolidation. No pneumothorax. Upper Abdomen:Stable 4.2 cm left hepatic lobe simple cyst. Partially imaged exophytic right upper pole simple renal cyst. Bones:Degenerative changes of the thoracic spine. Esophagus is nondilated. CT/Low Dose CT Lung Screening IMPRESSION: No suspicious pulmonary nodule or adenopathy. Lung-RADS Category: 1 NEGATIVE. RECOMMEND 12-MONTH SCREENING LDCT. Other Significant Findings: None. Reading Location: [facility] CC: CORPORATE QUALITY MANAGER-C Oksana Reynolds; Dr. Marielos Torres DO Securities Teller: Signed Normal [facility] Oncology Visit Reporton Oncology Visit Report [facility] [place] [address] OFFICE VISIT Date of Service: 09/23/24 1220 MR#: [id number] Acct: [id number] Name: LONG ALMONTE Rep #: [id number] : 1960 From: Oksana Reynolds NP CORPORATE QUALITY MANAGER -C Age/Sex: 63/F Location[email or web address] Status: Signed HPI HPI Reviewed eligibility criteria: 63 year old F with a >20 pack year history ( 1 ppd x 30 years) Smoking Status: Former smoker (quit 2015 ) Decision Making Engaged in shared decision making visit utilizing a visual aid. Discussed the risks and benefits of lung cancer screening including the total radiation exposure, false positive rate, over diagnosis and potential need for follow-up diagnostic testing all associated with low-dose chest CT. Comorbidities HTN, CAD, hyperlipidemia, COPD ROS Const Denies anorexia, Denies fatigue, Denies headache(s), Denies poor appetite and Reports weight loss (intentional ) ENT Denies headache(s) Card Denies chest pain, Reports dyspnea on exertion and Denies palpitations Resp Reports cough (frequent, non productive ), Reports dyspnea on exertion, Denies hemoptysis and Denies wheezing GI Reports system reviewed and no additional complaints, except as documented Musc Reports system reviewed and no additional complaints, except as documented Skin/Breast Reports system reviewed and no additional complaints, except as documented Neuro Yes system reviewed and no additional complaints, except as documented and No headache(s) Psych Reports system reviewed and no additional complaints, except as documented Endo Reports system reviewed and no additional complaints, except as documented, Denies fatigue and Denies palpitations Farhad/Lymph Reports system reviewed and no additional complaints, except as documented [employer]er/[employer] wheezing Exam Const General: comfortable Orientation: alert and oriented x3 HENMT Head: normocephalic and atraumatic Ears: hearing grossly normal bilaterally Neck Neck: normal visual inspection, full ROM and supple Resp Effort Inspection: normal respiratory effort and able to speak in complete sentences Auscultation: Bilateral: Clear to Auscultation Cardio Rate: regular rate Rhythm: regular rhythm Heart Sounds: S1 normal and S2 normal GI Palpation: soft (Non tender, no palpable organomegaly) Neuro General: moves all extremities and CN's II-XI intact bilaterally Extrem General: no clubbing, cyanosis or edema Psych Mental Status: mental status grossly normal Affect: normal affect Results Results September 23, [address] Lung Screening IMPRESSION: No suspicious pulmonary nodule or adenopathy. Lung-RADS Category: 1 NEGATIVE. RECOMMEND 12-MONTH SCREENING LDCT. Other Significant Findings: None. Intake Vital Signs 07/23/23 08:02 Height 5 ft 3 in Weight: 204 lb 4 oz BMI 36.1 BP 122/87 H Blood Pressure Location Rt brachial Position Sitting Respiration 18 Pulse 84 Pulse Source Monitor Temp 98.1 F Temp Source Temporal Pulse Oximetry (%) 96 Oxygen Delivery Method room air Intake Visit Reasons: LUNG CANCER SCREENING Is patient in pain?: No Allergies metronidazole (From Flagyl) Adverse Reaction (Severe, Verified 09/23/24 12:26) Nausea/Vom/Diarrhea Medications ???Medication ???Instructions ???Recorded ???Confirmed ???Type cholecalciferol (vitamin D3) 50 2,000 unit PO DAILY supplement 09/23/24 History mcg (2,000 unit) capsule omeprazole 20 mg capsule,delayed 20 mg PO DAILY acid reflux #90 cap s 03/01/23 09/23/24 Rx release levothyroxine 137 mcg tablet 137 mcg PO DAILY #90 tabs 06/01/23 09/23/24 Rx hydrochlorothiazide 25 mg tablet 25 mg PO DAILY #90 tabs 01/22/24 0 09/23/24 Rx ramipril 10 mg capsule 10 mg PO DAILY blood pressure 11/2 10/1109/23/24 History PFSH Medical History History of hiatal hernia Diverticulosis Restless legs Leg cramps History of stress test Bilateral leg cramps Post-menopausal COVID-19 Abnormal biopsy result Encounter for screening for malignant neoplasm of lung Anemia Palpitations Hypertension History of tobacco use Encounter for screening for malignant neoplasm of lung in former smoker who quit in past 15 years with 30 pack year history or greater Morbid obesity Wears contact lenses Cancer Thyroid disease High cholesterol History of diverticulitis Gastric reflux Former smoker CPAP (continuous positive airway pressure) dependence Sleep apnea History of echocardiogram Cardiology follow-up encounter Health care maintenance Obesity Lipoma of both lower extremities Colon cancer screening Diverticulosis Arthritis Borderline diabetes mellitus Postoperative hypothyroidism BESSIE on CPAP (more content not included)... Normal [facility] 12 Lead EKGon 04-15-2024 12 Lead EKG [facility] [address] [place] [address] 12 Lead EKG 04/15/24 0727 MR#: [id number] Acct: [id number] Name: LONG ALMONTE Rep #: [id number] : 1960 63 From: Haseeb Sanchez MD Attending Dr: Dr. Pradeep Villa MD Status: PRE MSC Ordering Dr: Pradeep Villa MD Date: 04/15/24 Location: [facility] [place] Sex: F C Admitted: Test Reason : PRE OP Blood Pressure : */* mmHG Vent. Rate : 73 BPM Atrial Rate : 73 BPM P-R Int : 164 ms QRS Dur : 82 ms QT Int : 382 ms P-R-T Axes : 46 -12 43 degrees QTcB Int : 420 ms Normal sinus rhythm Normal ECG Confirmed by Haseeb Sanchez ([id number]), greeting card editor MARGARITA RODRIGUEZ ([id number]) on 04/15/2024 1:03:26 PM Referred By: Pradeep Villa Confirmed By: Haseeb Sanchez 04/15/24 1303 Date Haseeb Sanchez MD CC: Dr. Marielos Torres DO; Dr. Pradeep Villa MD Signed Normal [facility] Basic Metabolic Profile (BMP )on 04-15-2024 BUN/CRE 25.0 RATIO High 10-20 [facility] Comment on above: Performed By: #### L 500.2500, L100.0500 #### [facility] [address] [place], [address] CA,Total 9.2 mg/dL Normal 8.5-10.1 [facility] Comment on above: Performed By: #### L 500.2500, L100.0500 #### [facility] [address] [place], [address] Chloride [Moles/Vol] 108 mmol/L High 98-107 [facility] Comment on above: Performed By: #### L 500.2500, L100.0500 #### [facility] [address] [place], [address] CO2 [Moles/Vol] 28.0 mmol/L Normal 21.0-32.0 [facility] Comment on above: Performed By: #### L 500.2500, L100.0500 #### [facility] [address] [place], [address] Creatinine [Mass/Vol] 0.68 mg/dL Normal 0.55-1.02 [facility] Comment on above: Result Comment: The validity of the calculated GFR GFRAA in patients over 70 years has not been determined. Clinical correlation is essential. Performed By: #### L 500.2500, L100.0500 #### [facility] [address] [place], [address] EST GFR - AA 113 mL/min Normal >60 [facility] Comment on above: Result Comment: Afri can Cymro GFR Calc Performed By: #### L 500.2500, L100.0500 #### [facility] [address] [place], [address] GAP 3 Low 5-15 [facility] Comment on above: Performed By: #### L 500.2500, L100.0500 #### [facility] [address] [place], [address] GFR/1.73 sq M.predicted among non-blacks MDRD (S/P/Bld) [Vol rate/Area] 93 mL/min/{1.73_m2} Normal >60 [facility] Comment on above: Result Comment: Non- GFR Calc Performed By: #### L 500.2500, L100.0500 #### [facility] [address] [place], [address] Glucose [Mass/Vol] 104 mg/dL Normal 74-106 [facility] Comment on above: Result Comment: Fast ing Glucose result from 100 to 125 mg/dL suggests IMPAIRED HOMEOSTASIS per A.D.A. criteria. Performed By: #### L 500.2500, L100.0500 #### [facility] [address] [place], [address] Potassium [Moles/Vol] 3.6 mmol/L Normal 3.5-5.1 [facility] Comment on above: Performed By: #### L 500.2500, L100.0500 #### [facility] [address] [place], [address] Sodium [Moles/Vol] 139 mmol/L Normal 136-145 [facility] Comment on above: Performed By: #### L 500.2500, L100.0500 #### [facility] [address] [place], [address] Urea nitrogen [Mass/Vol] 17 mg/dL Normal 7-18 [facility] Comment on above: Performed By: #### L 500.2500, L100.0500 #### [facility] [address] [place], [address] CBC-Complete Blood Cnt No Di ffon 04-15-2024 Erythrocyte distribution width (RBC) [Ratio] 12.2 % Normal 11.6-14.6 [facility] Comment on above: Performed By: #### L 500.2500, L100.0500 #### [facility] [address] [place], [address] Hematocrit (Bld) [Volume fraction] 38.9 % Normal 37-47 [facility] Comment on above: Performed By: #### L 500.2500, L100.0500 #### [facility] [address] [place], [address] Hemoglobin (Bld) [Mass/Vol] 13.3 g/dL Normal 12.0-15.0 [facility] Comment on above: Performed By: #### L 500.2500, L100.0500 #### [facility] [address] [place], [address] MCH (RBC) [Entitic mass] 32.5 pg High 27.0-32.0 [facility] Comment on above: Performed By: #### L 500.2500, L100.0500 #### [facility] [address] [place], [address] MCHC (RBC) [Mass/Vol] 34.2 g/dL Normal 32-36 [facility] Comment on above: Performed By: #### L 500.2500, L100.0500 #### [facility] [address] [place], [address] MCV (RBC) [Entitic vol] 95.1 fL Normal 81-99 [facility] Comment on above: Performed By: #### L 500.2500, L100.0500 #### [facility] [address] [place], [address] Platelet mean volume (Bld) [Entitic vol] 11.5 fL Normal 6.2-12.0 [facility] Comment on above: Performed By: #### L 500.2500, L100.0500 #### [facility] [address] [place], [address] Platelets (Bld) [#/Vol] 259 10*3/uL Normal 150-450 [facility] Comment on above: Performed By: #### L 500.2500, L100.0500 #### [facility] [address] [place], [address] RBC (Bld) [#/Vol] 4.09 10*6/uL Low 4.2-5.4 [facility] Comment on above: Performed By: #### L 500.2500, L100.0500 #### [facility] [address] [place], [address] RDW SD 42.3 fl Normal 35.1-43.9 [facility] Comment on above: Performed By: #### L 500.2500, L100.0500 #### [facility] [address] [place], [address] WBC (Bld) [#/Vol] 5.7 10*3/uL Normal 4.4-11.0 [facility] Comment on above: Performed By: #### L 500.2500, L100.0500 #### [facility] [address] [place], [address] CBC W/Diff, Automatedon 10-2 3-2023 Absolute Lymph 2.21 X10 3/uL Normal 0.83-4.51 [facility] Comment on above: Performed By: #### L 100.0100, L501.9520, L400.0001, L501.9985, L502.0250, L500.4050, L506.1000, L500.4100 #### [facility] [address] [place], [address] Absolute Neut 2.7 X10 3/uL Normal 2.0-7.7 [facility] Comment on above: Performed By: #### L 100.0100, L501.9520, L400.0001, L501.9985, L502.0250, L500.4050, L506.1000, L500.4100 #### [facility] [address] [place], [address] Basophils/100 WBC (Bld) 0.4 % Normal 0-1 [facility] Comment on above: Performed By: #### L 100.0100, L501.9520, L400.0001, L501.9985, L502.0250, L500.4050, L506.1000, L500.4100 #### [facility] [address] [place], [address] Eosinophils/100 WBC (Bld) 2.4 % Normal 0-5 [facility] Comment on above: Performed By: #### L 100.0100, L501.9520, L400.0001, L501.9985, L502.0250, L500.4050, L506.1000, L500.4100 #### [facility] [address] [place], [address] Erythrocyte distribution width (RBC) [Ratio] 12.1 % Normal 11.6-14.6 [facility] Comment on above: Performed By: #### L 100.0100, L501.9520, L400.0001, L501.9985, L502.0250, L500.4050, L506.1000, L500.4100 #### [facility] [address] [place], [address] Hematocrit (Bld) [Volume fraction] 38.4 % Normal 37-47 [facility] Comment on above: Performed By: #### L 100.0100, L501.9520, L400.0001, L501.9985, L502.0250, L500.4050, L506.1000, L500.4100 #### [facility] [address] [place], [address] Hemoglobin (Bld) [Mass/Vol] 13.0 g/dL Normal 12.0-15.0 [facility] Comment on above: Performed By: #### L 100.0100, L501.9520, L400.0001, L501.9985, L502.0250, L500.4050, L506.1000, L500.4100 #### [facility] [address] [place], [address] IG% 0.200 Normal 0.0-0.9 [facility] Comment on above: Result Comment: IG% - Immature Granulocytes (promyelocytes, myelocytes and metamyelocytes) > 1% indicates that a LEFT SHIFT is Present. Performed By: #### L 100.0100, L501.9520, L400.0001, L501.9985, L502.0250, L500.4050, L506.1000, L500.4100 #### [facility] [address] [place], [address] Lymphocytes/100 WBC (Bld) 40.6 % Normal 19-41 [facility] Comment on above: Performed By: #### L 100.0100, L501.9520, L400.0001, L501.9985, L502.0250, L500.4050, L506.1000, L500.4100 #### [facility] [address] [facility] [place], [address] MCH (RBC) [Entitic mass] 32.2 pg High 27.0-32.0 [facility] Comment on above: Performed By: #### L 100.0100, L501.9520, L400.0001, L501.9985, L502.0250, L500.4050, L506.1000, L500.4100 #### [facility] [address] [facility] [address] [place], [address] MCHC (RBC) [Mass/Vol] 33.9 g/dL Normal 32-36 [facility] Comment on above: Performed By: #### L 100.0100, L501.9520, L400.0001, L501.9985, L502.0250, L500.4050, L506.1000, L500.4100 #### [facility] [address] [place], [address] MCV (RBC) [Entitic vol] 95.0 fL Normal 81-99 [facility] Comment on above: Performed By: #### L 100.0100, L501.9520, L400.0001, L501.9985, L502.0250, L500.4050, L506.1000, L500.4100 #### [facility] [address] [place], [address] Monocytes/100 WBC (Bld) 6.2 % Normal 0-10 [facility] Comment on above: Performed By: #### L 100.0100, L501.9520, L400.0001, L501.9985, L502.0250, L500.4050, L506.1000, L500.4100 #### [facility] [address] [place], [address] Neutrophils/100 WBC (Bld) 50.2 % Normal 47-70 [facility] Comment on above: Performed By: #### L 100.0100, L501.9520, L400.0001, L501.9985, L502.0250, L500.4050, L506.1000, L500.4100 #### [facility] [address] [place], [address] Nucleated RBC (Bld) [#/Vol] 0 10*3/uL Normal 0-5 [facility] Comment on above: Performed By: #### L 100.0100, L501.9520, L400.0001, L501.9985, L502.0250, L500.4050, L506.1000, L500.4100 #### [facility] [address] [place], [address] Platelet mean volume (Bld) [Entitic vol] 11.6 fL Normal 6.2-12.0 [facility] Comment on above: Performed By: #### L 100.0100, L501.9520, L400.0001, L501.9985, L502.0250, L500.4050, L506.1000, L500.4100 #### [facility] [address] [place], [address] Platelets (Bld) [#/Vol] 223 10*3/uL Normal 150-450 [facility] Comment on above: Performed By: #### L 100.0100, L501.9520, L400.0001, L501.9985, L502.0250, L500.4050, L506.1000, L500.4100 #### [facility] [address] [place], [address] RBC (Bld) [#/Vol] 4.04 10*6/uL Low 4.2-5.4 [facility] Comment on above: Performed By: #### L 100.0100, L501.9520, L400.0001, L501.9985, L502.0250, L500.4050, L506.1000, L500.4100 #### [facility] [address] [place], [address] RDW SD 42.1 fl Normal 35.1-43.9 [facility] Comment on above: Performed By: #### L 100.0100, L501.9520, L400.0001, L501.9985, L502.0250, L500.4050, L506.1000, L500.4100 #### [facility] [address] [place], [address] WBC (Bld) [#/Vol] 5.5 10*3/uL Normal 4.4-11.0 [facility] Comment on above: Performed By: #### L 100.0100, L501.9520, L400.0001, L501.9985, L502.0250, L500.4050, L506.1000, L500.4100 #### [facility] [address] [place], [address] Comprehensive Metabolic Prof ilon 03-12-2024 Albumin [Mass/Vol] 3.7 g/dL Normal 3.2-5.0 [facility] Comment on above: Performed By: #### L 500.2500, L100.0500 #### [facility] [address] [place], [address] Albumin/Globulin [Mass ratio] 1.1 {ratio} Normal 0.9-2.4 [facility] Comment on above: Performed By: #### L 500.2500, L100.0500 #### [facility] [address] [place], [address] ALK P 65 U/L Normal 45-117 [facility] Comment on above: Performed By: #### L 500.2500, L100.0500 #### [facility] [address] [place], [address] ALT [Catalytic activity/Vol] 23 U/L Normal 13-56 [facility] Comment on above: Performed By: #### L 500.2500, L100.0500 #### [facility] [address] [place], [address] AST [Catalytic activity/Vol] 12 U/L Low 15-37 [facility] Comment on above: Performed By: #### L 500.2500, L100.0500 #### [facility] [address] [place], [address] Bilirubin [Mass/Vol] 0.20 mg/dL Normal 0.20-1.00 [facility] Comment on above: Result Comment: For patients on eltrombopag therapy, use of [facility] TBIL is not recommended. Performed By: #### L 500.2500, L100.0500 #### [facility] [address] [place], [address] BUN/CRE 36.8 RATIO High 10-20 [facility] Comment on above: Performed By: #### L 500.2500, L100.0500 #### [facility] [address] [place], [address] CA,Total 9.0 mg/dL Normal 8.5-10.1 [facility] Comment on above: Performed By: #### L 500.2500, L100.0500 #### [facility] [address] [place], [address] Chloride [Moles/Vol] 108 mmol/L High 98-107 [facility] Comment on above: Performed By: #### L 500.2500, L100.0500 #### [facility] [address] [place], [address] CO2 [Moles/Vol] 27.0 mmol/L Normal 21.0-32.0 [facility] Comment on above: Performed By: #### L 500.2500, L100.0500 #### [facility] [address] [place], [address] Creatinine [Mass/Vol] 0.76 mg/dL Normal 0.55-1.02 [facility] Comment on above: Result Comment: The validity of the calculated GFR GFRAA in patients over 70 years has not been determined. Clinical correlation is essential. Performed By: #### L 500.2500, L100.0500 #### [facility] [address] [place], [address] EST GFR - AA 99 mL/min Normal >60 [facility] Comment on above: Result Comment: Afri can Cymro GFR Calc Performed By: #### L 500.2500, L100.0500 #### [facility] [address] [place], [address] GAP 4 Low 5-15 [facility] Comment on above: Performed By: #### L 500.2500, L100.0500 #### [facility] [address] [place], [address] GFR/1.73 sq M.predicted among non-blacks MDRD (S/P/Bld) [Vol rate/Area] 82 mL/min/{1.73_m2} Normal >60 [facility] Comment on above: Result Comment: Non- GFR Calc Performed By: #### L 500.2500, L100.0500 #### [facility] [address] [place], [address] Globulin (S) [Mass/Vol] 3.4 g/dL Normal 2.2-4.2 [facility] Comment on above: Performed By: #### L 500.2500, L100.0500 #### [facility] [address] [place], [address] Glucose [Mass/Vol] 105 mg/dL Normal 74-106 [facility] Comment on above: Result Comment: Fast ing Glucose result from 100 to 125 mg/dL suggests IMPAIRED HOMEOSTASIS per A.D.A. criteria. Performed By: #### L 500.2500, L100.0500 #### [facility] [address] [place], [address] Potassium [Moles/Vol] 3.9 mmol/L Normal 3.5-5.1 [facility] Comment on above: Performed By: #### L 500.2500, L100.0500 #### [facility] [address] [place], [address] Sodium [Moles/Vol] 140 mmol/L Normal 136-145 [facility] Comment on above: Performed By: #### L 500.2500, L100.0500 #### [facility] [address] [place], [address] T PROT 7.1 g/dL Normal 6.4-8.2 [facility] Comment on above: Performed By: #### L 500.2500, L100.0500 #### [facility] [address] [place], [address] Urea nitrogen [Mass/Vol] 28 mg/dL High 7-18 [facility] Comment on above: Performed By: #### L 500.2500, L100.0500 #### [facility] [address] [place], [address] Hemoglobin A1con 03-12-2024 HbA1c (Bld) [Mass fraction] 5.2 % Normal 3.8-5.6 [facility] Comment on above: Result Comment: Norm al < 5.7 % Prediabetic 5.7 - 6.4 % Diabetic >or= 6.5 % Please note range changes. Performed By: #### L 100.0100, L501.9520, L400.0001, L501.9985, L502.0250, L500.4050, L506.1000, L500.4100 #### [facility] [address] [place], [address] Lipid Profileon 03-12-2024 Cholesterol [Mass/Vol] 149 mg/dL Normal [address] [facility] Comment on above: Result Comment: <200 mg/dL Desirable 200-240 mg/dL Borderline >240 mg/dL High Risk Performed By: #### L 500.2500, L100.0500 #### [facility] [address] [place], [address] Cholesterol in HDL [Mass/Vol] 55 mg/dL Normal [facility] Comment on above: Result Comment: The drugs N-Acetylcysteine and Metamizole may falsely depress this assay. Reference Range HDL <40 mg/dL Low HDL Cholesterol HDL >or= 60 mg/dL High HDL Cholesterol Performed By: #### L 500.2500, L100.0500 #### [facility] [address] [place], [address] Cholesterol in LDL [Mass/Vol] 87 mg/dL Normal 0-130 [facility] Comment on above: Performed By: #### L 500.2500, L100.0500 #### [facility] [address] [place], [address] Cholesterol in VLDL [Mass/Vol] 7 mg/dL Normal 5-40 [facility] Comment on above: Performed By: #### L 500.2500, L100.0500 #### [facility] [address] [place], [address] Triglyceride [Mass/Vol] 34 mg/dL Normal [facility] Comment on above: Result Comment: The drugs N-Acetylcysteine and Metamizole may falsely depress this assay. Serum Triglycerides Reference Interval Normal <150 mg/dL Borderline high 150 - 199 mg/dL High 200 - 499 mg/dL Very High > or = 500 mg/dL Performed By: #### L 500.2500, L100.0500 #### [facility] [address] [place], [address] Microalb:Creat Ratio,Random URon 03-12-2024 Creatinine [Mass/Vol] 45.90 mg/dL Normal NO RANGE EST. [facility] Comment on above: Performed By: #### L 500.2500, L100.0500 #### [facility] [address] [place], [address] MALB:CRE TNP Normal <30 mg/g CRE [facility] Comment on above: Performed By: #### L 500.2500, L100.0500 #### [facility] [address] [place], [address] MICROALBUMIN,UR < 5.0 Normal NO RANGE EST. [facility] Comment on above: Performed By: #### L 500.2500, L100.0500 #### [facility] [address] [place], [address] Thyroid Stim Hormone (TSH)on 03-12-2024 TSH 1.500 uIU/mL Normal 0.358-3.740 [facility] Comment on above: Performed By: #### L 500.2500, L100.0500 #### [facility] [address] [place], [address] Urinalysis, Completeon 03-12 EPI,SQUAMOUS 0-5 SEEN Normal 5-10 [facility] Comment on above: Order Comment: CLEAN CATCH Performed By: #### L 100.0100, L501.9520, L400.0001, L501.9985, L502.0250, L500.4050, L506.1000, L500.4100 #### [facility] [address] [place], [address] WBC 0-5 SEEN Normal 0-5 [facility] Comment on above: Order Comment: CLEAN CATCH Performed By: #### L 100.0100, L501.9520, L400.0001, L501.9985, L502.0250, L500.4050, L506.1000, L500.4100 #### [facility] [address] [place], [address] BACTERIA 0 SEEN Normal None Seen [facility] Comment on above: Order Comment: CLEAN CATCH Performed By: #### L 100.0100, L501.9520, L400.0001, L501.9985, L502.0250, L500.4050, L506.1000, L500.4100 #### [facility] [address] [place], [address] Mucus Ql (Urine sed) 0 SEEN Normal [facility] Comment on above: Order Comment: CLEAN CATCH Performed By: #### L 100.0100, L501.9520, L400.0001, L501.9985, L502.0250, L500.4050, L506.1000, L500.4100 #### [facility] [address] [place], [address] RBC 0 SEEN Normal 0-5 [facility] Comment on above: Order Comment: CLEAN CATCH Performed By: #### L 100.0100, L501.9520, L400.0001, L501.9985, L502.0250, L500.4050, L506.1000, L500.4100 #### [facility] [address] [place], [place], [address] Vitamin D,25 Hydroxyon 03-12 Vitamin D 25-OH 59.6 ng/mL Normal [facility] Comment on above: Result Comment: Justyna min D 25(OH) Status Range Deficiency <20 ng/mL (50nmol/L) Insufficiency 20 - 30 ng/mL (50 - 75 nmol/L) Sufficiency 30 - 100 ng/mL (75 - 250 nmol/L) Toxicity >100 ng/mL (>250 nmol/L) Performed By: #### L 100.0100, L501.9520, L400.0001, L501.9985, L502.0250, L500.4050, L506.1000, L500.4100 #### [facility] [address] [place], [place], [address] SCRN MAMM (CAD)W/MIGUEL BILATo n 12-19-2023 SCRN MAMM (CAD)W/MIGUEL BILAT [facility] Imaging Services [address] [place] [address] SCRN MAMM (CAD)W/MIGUEL BILAT MR#: [id number] Acct: [id number] Name: LONG ALMONTE Rep #: [id number] : 1960 F 63 From: Mateus gonzalez MD PCP: Dr. Marileos Torers DO Status: REG [facility] Study: SCRN MAMM (CAD)W/MIGUEL BILAT Date of Exam: 11/20 06/13 Exam# [id number] Ordering Dr: Marielos Torres DO [id number] MAMMOGRAPHY - BILATERAL SCREENING REASON FOR EXAM: Female, 63 years old. Routine annual screening examination. PERTINENT HISTORY: Sister with breast cancer. Mother with breast cancer. TECHNIQUE: Digital bilateral breast miguel (3D mammographic acquisition) in the CC and MLO projections. 2-D mediolateral oblique (MLO) and craniocaudad (CC) views of both breasts were obtained. CAD: Full Field Digital Mammography with Computer Added Detection was performed. COMPARISON: Comparison is made with prior study dated December 14, 2022 and November 30, 2021. FINDINGS: Breast Composition: The breasts are almost entirely fatty. There are no dominant masses or suspicious calcifications. Stable small benign-appearing bilateral axillary lymph nodes. No other significant abnormalities are identified. There has been no significant change since the prior study. BI/SCRN MAMM (CAD)W/MIGUEL BILAT IMPRESSION: Stable bilateral screening mammogram. Yearly follow-up mammogram recommended. (A) ASSESSMENT CATEGORY: BIRADS Category 2: Benign. A letter regarding these results will be sent to the patient by the facility within 30 days. Approximately 10% of breast cancers are not detected by mammography. A normal mammogram should not delay biopsy of a clinically suspicious abnormality. [id number] Electronically Signed: Mateus Valentino MD at 13:13 EDT , CC: Dr. Marielos Torres, Securities Teller: Signed Normal [facility] Basophil percentageOrdered B y: Tayler Cedeño on 07-23-2023 Chloride [Moles/Vol] 106 mmol/L 98-107 [facility] Glucose [Mass/Vol] 116 mg/dL 74-106 [facility] Comment on above: Fasting Glucose resu lt from 100 to 125 mg/dL suggests IMPAIRED HOMEOSTASIS per A.D.A. criteria. Potassium [Moles/Vol] 3.9 mmol/L 3.5-5.1 [facility] Sodium [Moles/Vol] 138 mmol/L 136-145 [facility] Laboratory - Chemistry and C hemistry - challengeOrdered By: Tayler Cedeño on 07-23-2023 CO2 [Moles/Vol] 27.0 mmol/L 21.0-32.0 [facility] Magnesium [Mass/Vol] 1.9 mg/dL 1.6-2.6 [facility] Urea nitrogen/Creatinine [Mass ratio] 25.2 mg/mg 10-20 [facility] No Panel InformationOrdered By: Tayler Cedeño on 07-23-2023 Estimated GFR (MDRD) Amer 100 mL/min >60 [facility] Comment on above: GFR Calc Estimated GFR (MDRD) Non-Af Amer 83 mL/min >60 [facility] Comment on above: Non- GFR Calc Serum or plasma calcium kevyn urement (mass/volume)Ordered By: Tayler Cedeño on 07-23-2023 Calcium [Mass/Vol] 9.9 mg/dL 8.5-10.1 [facility] Serum or plasma creatinine m easurement (mass/volume)Ordered By: Tayler Cedeño on 07-23-2023 Creatinine [Mass/Vol] 0.76 mg/dL 0.55-1.02 [facility] Comment on above: The validity of the calculated GFR & GFRAA in patients over 70 years has not been determined. Clinical correlation is essential. Serum or plasma urea nitroge n measurement (mass/volume)Ordered By: Tayler Cedeño on 07-23-2023 Urea nitrogen [Mass/Vol] 19 mg/dL 7-18 [facility] Thin prep Papanicolaou smear with manual screeningOrdered By: Tayler Cedeño on 07-23-2023 Thin prep Papanicolaou smear with manual screening 5 5-15 [facility] Whole blood hemoglobin A1c/t otal hemoglobin ratio (mass fraction)Ordered By: Tayler Cedeño on 07-23-2023 HbA1c (Bld) [Mass fraction] 5.6 % 3.8-5.6 [facility] Comment on above: Normal < 5.7 % Predi abetic 5.7 - 6.4 % Diabetic >or= 6.5 % Please note range changes. Laboratory - Microbiology an d Antimicrobial susceptibilityon 07-03-2023 SARS-CoV-2 (COVID-19) RNA BRIGID+probe Ql (Unsp spec) Not detected [facility] No Panel Informationon 07-03 Influenza Types A,B Rapid (Clinic) Not detected [facility] Absolute lymphocyte countOrd ered By: Tayler Cedeño on 01-17-2023 Lymphocytes Auto (Unsp spec) [#/Vol] 2.33 10*3/uL 0.83-4.51 [facility] Basophil percentageOrdered B y: Tayler Cedeño on 01-17-2023 Basophils/100 WBC (Bld) 0.6 % 0-1 [facility] Bilirubin [Mass/Vol] 0.30 mg/dL 0.20-1.00 [facility] Comment on above: For patients on eltr ombopag therapy, use of [facility] TBIL is not recommended. Chloride [Moles/Vol] 106 mmol/L 98-107 [facility] Cholesterol [Mass/Vol] 168 mg/dL <[address] [facility] Comment on above: <200 mg/dL Desirable 200-240 mg/dL Borderline >240 mg/dL High Risk Eosinophils/100 WBC (Bld) 2.0 % 0-5 [facility] Glucose [Mass/Vol] 97 mg/dL 74-106 [facility] Neutrophils (Bld) [#/Vol] 3.5 10*3/uL 2.0-7.7 [facility] Neutrophils/100 WBC (Bld) 54.1 % 47-70 [facility] Potassium [Moles/Vol] 4.1 mmol/L 3.5-5.1 [facility] Protein [Mass/Vol] 7.1 g/dL 6.4-8.2 [facility] Sodium [Moles/Vol] 138 mmol/L 136-145 [facility] Triglyceride [Mass/Vol] 70 mg/dL <199 [facility] Comment on above: The drugs N-Acetylcy steine and Metamizole may falsely depress this assay.Serum Triglycerides Reference Interval Normal <150 mg/dL Borderline high 150 - 199 mg/dL High 200 - 499 mg/dL Very High > or = 500 mg/dL WBC (Bld) [#/Vol] 6.4 10*3/uL 4.4-11.0 [facility] Blood erythrocytes count (nu mber/volume)Ordered By: Tayler Cedeño on 01-17-2023 RBC (Bld) [#/Vol] 4.07 10*6/uL 4.2-5.4 [facility] Blood hemoglobin measurement (mass/volume)Ordered By: Tayler Cedeño on 01-17-2023 Hemoglobin (Bld) [Mass/Vol] 12.9 g/dL 12.0-15.0 [facility] Blood lymphocytes/100 leukoc ytesOrdered By: Tayler Cedeño on 01-17-2023 Lymphocytes/100 WBC (Bld) 36.5 % 19-41 [facility] Blood monocytes/100 leukocyt esOrdered By: Tayler Cedeño on 01-17-2023 Monocytes/100 WBC (Bld) 6.6 % 0-10 [facility] Blood platelet mean volumeOr dered By: Tayler Cedeño on 01-17-2023 Platelet mean volume (Bld) [Entitic vol] 11.7 fL 6.2-12.0 [facility] Determination of erythrocyte mean corpuscular volume (MCV)Ordered By: Tayler Cedeño on 01-17-2023 MCV (RBC) [Entitic vol] 96.8 fL 81-99 [facility] Hematocrit Auto (Bld) [Volum e fraction]Ordered By: Tayler Cedeño on 01-17-2023 Hematocrit (Bld) [Volume fraction] 39.4 % 37-47 [facility] - Chemistry and C hemistry - challengeOrdered By: Tayler Cedeño on 01-17-2023 ALP [Catalytic activity/Vol] 59 U/L 45-117 [facility] ALT [Catalytic activity/Vol] 22 U/L 13-56 [facility] CO2 [Moles/Vol] 25.0 mmol/L 21.0-32.0 [facility] Globulin (S) [Mass/Vol] 3.5 g/dL 2.2-4.2 [facility] Urea nitrogen/Creatinine [Mass ratio] 24.9 mg/mg 10-20 [facility] - Hematology and Cell countsOrdered By: Tayler Cedeño on 01-17-2023 Erythrocyte distribution width (RBC) [Entitic vol] 44.9 fL 35.1-43.9 [facility] Erythrocyte distribution width (RBC) [Ratio] 12.4 % 11.6-14.6 [facility] Immature granulocytes/100 WBC (Bld) 0.200 % 0.0-0.9 [facility] Comment on above: IG% - Immature Granu locytes (promyelocytes, myelocytes and metamyelocytes) > 1% indicates that a LEFT SHIFT is Present. MCH (RBC) [Entitic mass] 31.7 pg 27.0-32.0 [facility] Nucleated RBC/100 WBC (Bld) [Ratio] 0 % 0-5 [facility] MCHC Auto (RBC) [Mass/Vol]Or dered By: Tayler Cedeño on 01-17-2023 MCHC (RBC) [Mass/Vol] 32.7 g/dL 32-36 [facility] No Panel InformationOrdered By: Tayler Cedeño on 01-17-2023 Estimated GFR (MDRD) Amer 88 mL/min >60 [facility] Comment on above: GFR Calc Estimated GFR (MDRD) Non-Af Amer 73 mL/min >60 [facility] Comment on above: Non- GFR Calc Thyroid Stimulating Hormone (TSH) 0.27 uIU/mL 0.358-3.74 [facility] Platelets bldOrdered By: Warren Cedeño on 01-17-2023 Platelets (Bld) [#/Vol] 245 10*3/uL 150-450 [facility] Serum or plasma albumin kevyn urement (mass/volume)Ordered By: Tayler Cedeño on 01-17-2023 Albumin [Mass/Vol] 3.6 g/dL 3.2-5.0 [facility] Serum or plasma albumin/glob ulin mass ratioOrdered By: Tayler Cedeño on 01-17-2023 Albumin/Globulin [Mass ratio] 1.0 {ratio} 0.9-2.4 [facility] Serum or plasma calcium kevyn urement (mass/volume)Ordered By: Tayler Cedeño on 08-30-2023 Calcium [Mass/Vol] 9.3 mg/dL 8.5-10.1 [facility] Serum or plasma cholesterol in HDL measurement (mass/volume)Ordered By: Tayler Cedeño on 01-17-2023 Cholesterol in HDL [Mass/Vol] 54 mg/dL >40 [facility] Comment on above: The drugs N-Acetylcy steine and Metamizole may falsely depress this assay. Reference Range HDL <40 mg/dL Low HDL Cholesterol HDL >or= 60 mg/dL High HDL Cholesterol Serum or plasma cholesterol in VLDL measurement (mass/volume)Ordered By: Tayler Cedeño on 01-17-2023 Cholesterol in VLDL [Mass/Vol] 14 mg/dL 5-40 [facility] Serum or plasma creatinine m easurement (mass/volume)Ordered By: Tayler Cedeño on 01-17-2023 Creatinine [Mass/Vol] 0.84 mg/dL 0.55-1.02 [facility] Comment on above: The validity of the calculated GFR & GFRAA in patients over 70 years has not been determined. Clinical correlation is essential. Serum or plasma low density lipoprotein (LDL) cholesterol measurement (mass/volume)Ordered By: Tayler Cedeño on 01-17-2023 Cholesterol in LDL [Mass/Vol] 100 mg/dL 0-130 [facility] Serum or plasma urea nitroge n measurement (mass/volume)Ordered By: Tayler Cedeño on 01-17-2023 Urea nitrogen [Mass/Vol] 21 mg/dL 7-18 [facility] Thin prep Papanicolaou smear with manual screeningOrdered By: Tayler Cedeño on 01-17-2023 Thin prep Papanicolaou smear with manual screening 8 U/L 15-37 [facility] Thin prep Papanicolaou smear with manual screening 7 5-15 [facility] - Microbiology an d Antimicrobial susceptibilityon 08-24-2022 SARS-CoV-2 (COVID-19) RNA BRIGID+probe Ql (Unsp spec) Detected [facility] No Panel Informationon 08-24 Influenza Types A,B Rapid (Clinic) Not detected [facility] Basophil percentageOrdered B y: Dr. Ball on 05-31-2022 Chloride [Moles/Vol] 106 mmol/L 98-107 [facility] Glucose [Mass/Vol] 115 mg/dL 74-106 [facility] Comment on above: Fasting Glucose resu lt from 100 to 125 mg/dL suggests IMPAIRED HOMEOSTASIS per A.D.A. criteria. Potassium [Moles/Vol] 4.7 mmol/L 3.5-5.1 [facility] Sodium [Moles/Vol] 138 mmol/L 136-145 [facility] WBC (Bld) [#/Vol] 9.0 10*3/uL 4.4-11.0 [facility] Blood erythrocytes count (nu mber/volume)Ordered By: Dr. Ball on 05-31-2022 RBC (Bld) [#/Vol] 4.10 10*6/uL 4.2-5.4 [facility] Blood hemoglobin measurement (mass/volume)Ordered By: Dr. Ball on 05-31-2022 Hemoglobin (Bld) [Mass/Vol] 13.6 g/dL 12.0-15.0 [facility] Blood platelet mean volumeOr dered By: Dr. Ball on 05-31-2022 Platelet mean volume (Bld) [Entitic vol] 11.0 fL 6.2-12.0 [facility] Determination of erythrocyte mean corpuscular volume (MCV)Ordered By: Dr. Ball on 05-31-2022 MCV (RBC) [Entitic vol] 94.9 fL 81-99 [facility] Hematocrit Auto (Bld) [Volum e fraction]Ordered By: Dr. Ball on 05-31-2022 Hematocrit (Bld) [Volume fraction] 38.9 % 37-47 [facility] - Chemistry and C hemistry - challengeOrdered By: Dr. Ball on 05-31-2022 CO2 [Moles/Vol] 28.0 mmol/L 21.0-32.0 [facility] Natriuretic peptide B (Bld) [Mass/Vol] 6.2 pg/mL 0-100 [facility] Urea nitrogen/Creatinine [Mass ratio] 21.0 mg/mg 10-20 [facility] - Hematology and Cell countsOrdered By: Dr. Ball on 05-31-2022 Erythrocyte distribution width (RBC) [Entitic vol] 41.2 fL 35.1-43.9 [facility] Erythrocyte distribution width (RBC) [Ratio] 11.9 % 11.6-14.6 [facility] MCH (RBC) [Entitic mass] 33.2 pg 27.0-32.0 [facility] MCHC Auto (RBC) [Mass/Vol]Or dered By: Dr. Ball on 05-31-2022 MCHC (RBC) [Mass/Vol] 35.0 g/dL 32-36 [facility] No Panel InformationOrdered By: Dr. Ball on 05-31-2022 D-Dimer Quantitative (PE/DVT) 0.31 FEU/ug/m 0.27-0.49 [facility] Comment on above: NORMAL D-Dimer level (<0.50) indicates no DVT or PE. Estimated GFR (MDRD) Amer 77 mL/min >60 [facility] Comment on above: GFR Calc Estimated GFR (MDRD) Non-Af Amer 63 mL/min >60 [facility] Comment on above: Non- GFR Calc Platelets bldOrdered By: Dr. Ball on 05-31-2022 Platelets (Bld) [#/Vol] 280 10*3/uL 150-450 [facility] Serum or plasma calcium kevyn urement (mass/volume)Ordered By: Dr. Ball on 05-31-2022 Calcium [Mass/Vol] 9.5 mg/dL 8.5-10.1 [facility] Serum or plasma creatinine m easurement (mass/volume)Ordered By: Dr. Ball on 05-31-2022 Creatinine [Mass/Vol] 0.95 mg/dL 0.55-1.02 [facility] Comment on above: The validity of the calculated GFR & GFRAA in patients over 70 years has not been determined. Clinical correlation is essential. Serum or plasma urea nitroge n measurement (mass/volume)Ordered By: Dr. Ball on 05-31-2022 Urea nitrogen [Mass/Vol] 20 mg/dL 7-18 [facility] Thin prep Papanicolaou smear with manual screeningOrdered By: Dr. Ball on 05-31-2022 Thin prep Papanicolaou smear with manual screening 4 5-15 [facility] - Hematology and Cell countson 05-26-2022 HbA1c (Bld) [Mass fraction] 5.5 % 4.2-6.3 [facility] Absolute lymphocyte countOrd ered By: Edison Ramires on 02-22-2022 Lymphocytes Auto (Unsp spec) [#/Vol] 2.30 10*3/uL 0.83-4.51 [facility] Basophil percentageOrdered B y: Edison Ramires on 02-22-2022 Basophils/100 WBC (Bld) 0.8 % 0-1 [facility] Chloride [Moles/Vol] 106 mmol/L 98-107 [facility] Eosinophils/100 WBC (Bld) 2.5 % 0-5 [facility] Glucose [Mass/Vol] 115 mg/dL 74-106 [facility] Comment on above: Fasting Glucose resu lt from 100 to 125 mg/dL suggests IMPAIRED HOMEOSTASIS per A.D.A. criteria. Neutrophils (Bld) [#/Vol] 3.1 10*3/uL 2.0-7.7 [facility] Neutrophils/100 WBC (Bld) 51.3 % 47-70 [facility] Potassium [Moles/Vol] 4.4 mmol/L 3.5-5.1 [facility] Sodium [Moles/Vol] 139 mmol/L 136-145 [facility] WBC (Bld) [#/Vol] 6.0 10*3/uL 4.4-11.0 [facility] Basophil percentageOrdered B y: Jacqueline Brothers on 02-22-2022 Bilirubin [Mass/Vol] 0.20 mg/dL 0.20-1.00 [facility] Comment on above: For patients on eltr ombopag therapy, use of [facility] [place] TBIL is not recommended. Cholesterol [Mass/Vol] 161 mg/dL <[address] [facility] Comment on above: <200 mg/dL Desirable 200-240 mg/dL Borderline >240 mg/dL High Risk Protein [Mass/Vol] 7.6 g/dL 6.4-8.2 [facility] Triglyceride [Mass/Vol] 94 mg/dL <199 [facility] Comment on above: The drugs N-Acetylcy steine and Metamizole may falsely depress this assay.Serum Triglycerides Reference Interval Normal <150 mg/dL Borderline high 150 - 199 mg/dL High 200 - 499 mg/dL Very High > or = 500 mg/dL Blood erythrocytes count (nu mber/volume)Ordered By: Edison Ramires on 02-22-2022 RBC (Bld) [#/Vol] 4.09 10*6/uL 4.2-5.4 [facility] Blood hemoglobin measurement (mass/volume)Ordered By: Edison Ramires on 02-22-2022 Hemoglobin (Bld) [Mass/Vol] 13.5 g/dL 12.0-15.0 [facility] Blood lymphocytes/100 leukoc ytesOrdered By: Edison Ramires on 02-22-2022 Lymphocytes/100 WBC (Bld) 38.4 % 19-41 [facility] Blood monocytes/100 leukocyt esOrdered By: Edison Ramires on 02-22-2022 Monocytes/100 WBC (Bld) 6.8 % 0-10 [facility] Blood platelet mean volumeOr dered By: Edison Ramires on 02-22-2022 Platelet mean volume (Bld) [Entitic vol] 11.9 fL 6.2-12.0 [facility] Determination of erythrocyte mean corpuscular volume (MCV)Ordered By: Edison Ramires on 02-22-2022 MCV (RBC) [Entitic vol] 98.3 fL 81-99 [facility] Direct bilirubinOrdered By: Jacqueline Brothers on 02-22-2022 Bilirubin.direct [Mass/Vol] 0.09 mg/dL 0.00-0.30 [facility] Hematocrit Auto (Bld) [Volum e fraction]Ordered By: Edison Ramires on 02-22-2022 Hematocrit (Bld) [Volume fraction] 40.2 % 37-47 [facility] Iron measurement (mass/mass) Ordered By: Edison Ramires on 02-22-2022 Iron (Unsp spec) [Mass/Mass] 91 ug/dL 50-170 [facility] - Chemistry and C hemistry - challengeOrdered By: Edison Ramires on 02-22-2022 CO2 [Moles/Vol] 26.0 mmol/L 21.0-32.0 [facility] Cobalamin (Vitamin B12) [Mass/Vol] 429 pg/mL 211-911 [facility] Magnesium [Mass/Vol] 2.3 mg/dL 1.6-2.6 [facility] Urea nitrogen/Creatinine [Mass ratio] 20.1 mg/mg 10-20 [facility] - Chemistry and C hemistry - challengeOrdered By: Jacqueline Brothers on 02-22-2022 ALP [Catalytic activity/Vol] 69 U/L 45-117 [facility] ALT [Catalytic activity/Vol] 30 U/L 13-56 [facility] Globulin (S) [Mass/Vol] 3.9 g/dL 2.2-4.2 [facility] - Hematology and Cell countsOrdered By: Edison Ramires on 02-22-2022 Erythrocyte distribution width (RBC) [Entitic vol] 43.1 fL 35.1-43.9 [facility] Erythrocyte distribution width (RBC) [Ratio] 11.9 % 11.6-14.6 [facility] Immature granulocytes/100 WBC (Bld) 0.200 % 0.0-0.9 [facility] Comment on above: IG% - Immature Granu locytes (promyelocytes, myelocytes and metamyelocytes) > 1% indicates that a LEFT SHIFT is Present. MCH (RBC) [Entitic mass] 33.0 pg 27.0-32.0 [facility] Nucleated RBC/100 WBC (Bld) [Ratio] 0 % 0-5 [facility] MCHC Auto (RBC) [Mass/Vol]Or dered By: Edison Ramires on 02-22-2022 MCHC (RBC) [Mass/Vol] 33.6 g/dL 32-36 [facility] No Panel InformationOrdered By: Edison Ramires on 02-22-2022 Estimated GFR (MDRD) Amer 88 mL/min >60 [facility] Comment on above: GFR Calc Estimated GFR (MDRD) Non-Af Amer 73 mL/min >60 [facility] Comment on above: Non- GFR Calc Thyroid Stimulating Hormone (TSH) 3.25 uIU/mL 0.358-3.74 [facility] Total Iron Binding Capacity 317 ug/dL 250-450 [facility] Platelets bldOrdered By: Lucinda Ramires on 02-22-2022 Platelets (Bld) [#/Vol] 264 10*3/uL 150-450 [facility] Serum or plasma albumin kevyn urement (mass/volume)Ordered By: Jacqueline Brothers on 02-22-2022 Albumin [Mass/Vol] 3.7 g/dL 3.2-5.0 [facility] Serum or plasma calcium kevyn urement (mass/volume)Ordered By: Edison Ramires on 02-22-2022 Calcium [Mass/Vol] 9.6 mg/dL 8.5-10.1 [facility] Serum or plasma cholesterol in HDL measurement (mass/volume)Ordered By: Jacqueline Brothers on 02-22-2022 Cholesterol in HDL [Mass/Vol] 49 mg/dL >40 [facility] Comment on above: The drugs N-Acetylcy steine and Metamizole may falsely depress this assay. Reference Range HDL <40 mg/dL Low HDL Cholesterol HDL >or= 60 mg/dL High HDL Cholesterol Serum or plasma cholesterol in VLDL measurement (mass/volume)Ordered By: Jacqueline Brothers on 02-22-2022 Cholesterol in VLDL [Mass/Vol] 19 mg/dL 5-40 [facility] Serum or plasma creatinine m easurement (mass/volume)Ordered By: Edison Ramires on 02-22-2022 Creatinine [Mass/Vol] 0.85 mg/dL 0.55-1.02 [facility] Comment on above: The validity of the calculated GFR & GFRAA in patients over 70 years has not been determined. Clinical correlation is essential. Serum or plasma ferritin raghav surement (mass/volume)Ordered By: Edison Ramires on 02-22-2022 Ferritin [Mass/Vol] 160 ng/mL 8-252 [facility] Serum or plasma iron saturat ion measurement (mass fraction)Ordered By: Edison Ramires on 02-22-2022 Iron saturation [Mass fraction] 28.7 % 15.0-55.0 [facility] Serum or plasma low density lipoprotein (LDL) cholesterol measurement (mass/volume)Ordered By: Jacqueline Brothers on 02-22-2022 Cholesterol in LDL [Mass/Vol] 93 mg/dL 0-130 [facility] Serum or plasma urea nitroge n measurement (mass/volume)Ordered By: Edison Ramires on 02-22-2022 Urea nitrogen [Mass/Vol] 17 mg/dL 7-18 [facility] Thin prep Papanicolaou smear with manual screeningOrdered By: Edison Ramires on 02-22-2022 Thin prep Papanicolaou smear with manual screening 7 5-15 [facility] Thin prep Papanicolaou smear with manual screeningOrdered By: Jacqueline Brothers on 02-22-2022 Thin prep Papanicolaou smear with manual screening 15 U/L 15-37 [facility] Absolute lymphocyte counton 10-10-2021 Lymphocytes Auto (Unsp spec) [#/Vol] 2.46 10*3/uL 0.83-4.51 [facility] Work Phone: Basophil percentageon 2021 Basophils/100 WBC (Bld) 0.4 % 0-1 [facility] Work Phone: [phone] Chloride [Moles/Vol] 106 mmol/L 98-107 [facility] Work Phone: [phone] Eosinophils/100 WBC (Bld) 1.3 % 0-5 [facility] Work Phone: [phone] Glucose [Mass/Vol] 122 mg/dL 74-106 [facility] Work Phone: [phone] Comment on above: Fasting Glucose resu lt from 100 to 125 mg/dL suggests IMPAIRED HOMEOSTASIS per A.D.A. criteria. Neutrophils (Bld) [#/Vol] 5.7 10*3/uL 2.0-7.7 [facility] Work Phone: [phone] Neutrophils/100 WBC (Bld) 64.1 % 47-70 [facility] Work Phone: [phone] Potassium [Moles/Vol] 3.8 mmol/L 3.5-5.1 [facility] Work Phone: [phone] Sodium [Moles/Vol] 139 mmol/L 136-145 [facility] Work Phone: WBC (Bld) [#/Vol] 8.9 10*3/uL 4.4-11.0 [facility] Work Phone: Blood erythrocytes count (nu mber/volume)on 10-10-2021 RBC (Bld) [#/Vol] 4.04 10*6/uL 4.2-5.4 [facility] Work Phone: Blood hemoglobin measurement (mass/volume)on 10-10-2021 Hemoglobin (Bld) [Mass/Vol] 13.2 g/dL 12.0-15.0 [facility] Work Phone: Blood lymphocytes/100 leukoc yteson 10-10-2021 Lymphocytes/100 WBC (Bld) 27.6 % 19-41 [facility] Work Phone: Blood monocytes/100 leukocyt eson 10-10-2021 Monocytes/100 WBC (Bld) 6.2 % 0-10 [facility] Work Phone: Blood platelet mean volumeon 10-10-2021 Platelet mean volume (Bld) [Entitic vol] 12.1 fL 6.2-12.0 [facility] Work Phone: Determination of erythrocyte mean corpuscular volume (MCV)on 10-10-2021 MCV (RBC) [Entitic vol] 96.0 fL 81-99 [facility] Work Phone: Hematocrit Auto (Bld) [Volum e fraction]on 10-10-2021 Hematocrit (Bld) [Volume fraction] 38.8 % 37-47 [facility] Work Phone: Laboratory - Chemistry and C hemistry - challengeon 10-10-2021 CO2 [Moles/Vol] 28.0 mmol/L 21.0-32.0 [facility] Work Phone: Urea nitrogen/Creatinine [Mass ratio] 26.3 mg/mg 10-20 [facility] Work Phone: Laboratory - Hematology and Cell countson 10-10-2021 Erythrocyte distribution width (RBC) [Entitic vol] 41.8 fL 35.1-43.9 [facility] Work Phone: Erythrocyte distribution width (RBC) [Ratio] 11.9 % 11.6-14.6 [facility] Work Phone: Immature granulocytes/100 WBC (Bld) 0.400 % 0.0-0.9 [facility] Work Phone: Comment on above: IG% - Immature Granu locytes (promyelocytes, myelocytes and metamyelocytes) > 1% indicates that a LEFT SHIFT is Present. MCH (RBC) [Entitic mass] 32.7 pg 27.0-32.0 [facility] Work Phone: Nucleated RBC/100 WBC (Bld) [Ratio] 0 % 0-5 [facility] Work Phone: MCHC Auto (RBC) [Mass/Vol]on 10-10-2021 MCHC (RBC) [Mass/Vol] 34.0 g/dL 32-36 [facility] Work Phone: No Panel Informationon 10-10 Estimated GFR (MDRD) Amer 85 mL/min >60 [facility] Work Phone: Comment on above: GFR Calc Estimated GFR (MDRD) Non-Af Amer 70 mL/min >60 [facility] Work Phone: Comment on above: Non- GFR Calc Platelets bldon 10-10-2021 Platelets (Bld) [#/Vol] 254 10*3/uL 150-450 [facility] Work Phone: Serum or plasma calcium kevyn urement (mass/volume)on 10-10-2021 Calcium [Mass/Vol] 9.2 mg/dL 8.5-10.1 [facility] Work Phone: Serum or plasma creatinine m easurement (mass/volume)on 10-10-2021 Creatinine [Mass/Vol] 0.87 mg/dL 0.55-1.02 [facility] Work Phone: Comment on above: The validity of the calculated GFR & GFRAA in patients over 70 years has not been determined. Clinical correlation is essential. Serum or plasma urea nitroge n measurement (mass/volume)on 05-23-2022 Urea nitrogen [Mass/Vol] 23 mg/dL 12-05 [facility] Work Phone: Thin prep Papanicolaou smear with manual screeningon 10-10-2021 Thin prep Papanicolaou smear with manual screening 5 5- [facility] Work Phone: CNPNon 08-11-2020 CNPN Telephone (FAMPWS) LONG ALMONTE ([id number]) 1960 F Date Time Provider Department 08/11/20 [facility] During your visit today, we recorded the following information about you: Edison Regalado MD 08/11/2020 6:24 PM Signed Please do Pt Outreach; overdue for follow up appt for HTN, lipids MD Aristides Ortez MA 08/11/2020 7:33 PM Signed Pt has been contacted via SmartShoot as it shows an active date in 06/2020. I have asked pt to contact office to setup an appt or update she is following with a different Provider. See outreach encounter that has been started if pt returns call. Aristides Hopson MA Allergies As of Date: 08/11/2020 Noted Allergy Reaction METRONIDAZOLE 02/05/2018 8 - GI Upset Date Reviewed: 05/01/2019 Reviewed by: Cleo Wilcox Ma - Fully Assessed Reason for Visit: PHMA/Care Gap Outreach [[id number]] Prescriptions as of 08/11/2020 Sig: CYCLOBENZAPRINE 10 [...] 40-49.9 (morbid obesity*08/22/2017 Encounter Status:Closed by ARISTIDES HOPSON MA on 08/11/20 Normal [facility] Vital Signs Date Time Vital Sign Value Performing Clinician Hebert cardona 07-23-2023 08:02-0500 Body height 160.[address] Tayler Cedeño Work Phone: [facility] 07-23-2023 08:02-0500 Body mass index (BMI) [Ratio] 39.1 kg/m2 Dr. Tayler Cedeño Work Phone: [facility] 07-23-2023 08:02-0500 Body mass index (BMI) [Ratio] 36.1 kg/m2 Dr. Marielos Torres DO Work Phone: [facility] 07-23-2023 08:02-0500 Body temperature 97.5 [degF] Dr. Tayler Cedeño Work Phone: [facility] 07-23-2023 08:02-0500 Body temperature 98.1 [degF] Dr. Marielos Torres DO Work Phone: [facility] 07-23-2023 08:02-0500 Body weight 100.[address] Tayler Cedeño Work Phone: [facility] 07-23-2023 08:02-0500 Body weight 92.[address] Marielos Torres DO Work Phone: [facility] 07-23-2023 08:02-0500 Diastolic blood pressure 80 mm[Hg] Dr. Tayler Cedeño Work Phone: [facility] 07-23-2023 08:02-0500 Diastolic blood pressure 87 mm[Hg] Dr. Marielos Torres DO Work Phone: [facility] 07-23-2023 08:02-0500 Heart rate 86 /min Dr. Tayler Cedeño Work Phone: [facility] 07-23-2023 08:02-0500 Heart rate 84 /min Dr. Marielos Torres DO Work Phone: [facility] 07-23-2023 08:02-0500 Respiratory rate 16 /min Dr. Tayler Cedeño Work Phone: [facility] 07-23-2023 08:02-0500 Respiratory rate 18 /min Dr. Marielos Torres DO Work Phone: [facility] 07-23-2023 08:02-0500 SaO2% (BldA) [Mass fraction] 97 % Dr. Tayler Cedeño Work Phone: [facility] 07-23-2023 08:02-0500 SaO2% (BldA) [Mass fraction] 96 % Dr. Marielos Torres DO Work Phone: [facility] 07-23-2023 08:02-0500 Systolic blood pressure 120 mm[Hg] Dr. Tayler Cedeño Work Phone: [facility] 07-23-2023 08:02-0500 Systolic blood pressure 122 mm[Hg] Dr. Marielos Torres DO Work Phone: [facility] 07-03-2023 09:48-0500 Body temperature 98.5 [degF] Dr. Tayler Cedeño Work Phone: [facility] 07-03-2023 09:48-0500 Diastolic blood pressure 84 mm[Hg] Dr. Tayler Cedeño Work Phone: [facility] 07-03-2023 09:48-0500 Heart rate 81 /min Dr. Tayler Cedeño Work Phone: [facility] 07-03-2023 09:48-0500 Respiratory rate 16 /min Dr. Tayler Cedeño Work Phone: [facility] 07-03-2023 09:48-0500 SaO2% (BldA) [Mass fraction] 97 % Dr. Tayler Cedeño Work Phone: [facility] 07-03-2023 09:48-0500 Systolic blood pressure 140 mm[Hg] Dr. Tayler Cedeño Work Phone: [facility] 06-19-2023 11:52-0500 Body height 160.[address] Tayler Cedeño Work Phone: [facility] 06-19-2023 11:52-0500 Body mass index (BMI) [Ratio] 39.8 kg/m2 Dr. Tayler Cedeño Work Phone: [facility] 06-19-2023 11:52-0500 Body temperature 97.3 [degF] Dr. Tayler Cedeño Work Phone: [facility] 06-19-2023 11:52-0500 Body weight 102.[address] Tayler Cedeño Work Phone: [facility] 06-19-2023 11:52-0500 Diastolic blood pressure 86 mm[Hg] Dr. Tayler Cedeño Work Phone: [facility] 06-19-2023 11:52-0500 Heart rate 66 /min Dr. Tayler Cedeño Work Phone: [facility] 06-19-2023 11:52-0500 Respiratory rate 18 /min Dr. Tayler Cedeño Work Phone: [facility] 06-19-2023 11:52-0500 SaO2% (BldA) [Mass fraction] 97 % Dr. Tayler Cedeño Work Phone: [facility] 06-19-2023 11:52-0500 Systolic blood pressure 123 mm[Hg] Dr. Tayler Cedeño Work Phone: [facility] 06-01-2023 15:47-0500 Body mass index (BMI) [Ratio] 40.6 kg/m2 Dr. Tayler Cedeño Work Phone: [facility] 06-01-2023 15:47-0500 Body temperature 97.8 [degF] Dr. Tayler Cedeño Work Phone: [facility] 06-01-2023 15:47-0500 Body weight 104.[address] Tayler Cedeño Work Phone: [facility] 06-01-2023 15:47-0500 Diastolic blood pressure 82 mm[Hg] Dr. Tayler Cedeño Work Phone: [facility] 06-01-2023 15:47-0500 Heart rate 70 /min Dr. Tayler Cedeño Work Phone: [facility] 06-01-2023 15:47-0500 Respiratory rate 16 /min Dr. Tayler Cedeño Work Phone: [facility] 06-01-2023 15:47-0500 SaO2% (BldA) [Mass fraction] 97 % Dr. Tayler Cedeño Work Phone: [facility] 06-01-2023 15:47-0500 Systolic blood pressure 140 mm[Hg] Dr. Tayler Cedeño Work Phone: [facility] 01-17-2023 09:24-0400 Body height 160.[address] Tayler Cedeño Work Phone: [facility] 01-17-2023 09:24-0400 Body mass index (BMI) [Ratio] 38.6 kg/m2 Dr. Tayler Cedeño Work Phone: [facility] 01-17-2023 09:24-0400 Body temperature 97.7 [degF] Dr. Tayler Cedeño Work Phone: [facility] 01-17-2023 09:24-0400 Body weight 98.[address] Tayler Cedeño Work Phone: [facility] 01-17-2023 09:24-0400 Diastolic blood pressure 74 mm[Hg] Dr. Tayler Cedeño Work Phone: [facility] 01-17-2023 09:24-0400 Heart rate 78 /min Dr. Tayler Cedeño Work Phone: [facility] 01-17-2023 09:24-0400 Respiratory rate 16 /min Dr. Tayler Cedeño Work Phone: [facility] 01-17-2023 09:24-0400 SaO2% (BldA) [Mass fraction] 99 % Dr. Tayler Cedeño Work Phone: [facility] 01-17-2023 09:24-0400 Systolic blood pressure 110 mm[Hg] Dr. Tayler Cedeño Work Phone: [facility] 08-24-2022 11:01-0400 Body temperature 97.7 [degF] Dr. Tayler Cedeño Work Phone: [facility] 08-24-2022 11:01-0400 Diastolic blood pressure 72 mm[Hg] Dr. Taylre Cedeño Work Phone: [facility] 08-24-2022 11:01-0400 Heart rate 98 /min Dr. Tayler Cedeño Work Phone: [facility] 08-24-2022 11:01-0400 Respiratory rate 16 /min Dr. Tayler Cedeño Work Phone: [facility] 08-24-2022 11:01-0400 SaO2% (BldA) [Mass fraction] 97 % Dr. Tayler Cedeño Work Phone: [facility] 08-24-2022 11:01-0400 Systolic blood pressure 132 mm[Hg] Dr. Tayler Cedeño Work Phone: [facility] 06-13-2022 12:27-0500 Body height 160.[address] Tayler Cedeño Work Phone: [facility] 06-13-2022 12:27-0500 Body temperature 97.1 [degF] Dr. Tayler Cedeño Work Phone: [facility] 06-13-2022 12:27-0500 Diastolic blood pressure 91 mm[Hg] Dr. Tayler Cedeño Work Phone: [facility] 06-13-2022 12:27-0500 Heart rate 70 /min Dr. Tayler Cedeño Work Phone: [facility] 06-13-2022 12:27-0500 Respiratory rate 16 /min Dr. Tayler Cedeño Work Phone: [facility] 06-13-2022 12:27-0500 SaO2% (BldA) [Mass fraction] 99 % Dr. Tayler Cedeño Work Phone: [facility] 06-13-2022 12:27-0500 Systolic blood pressure 143 mm[Hg] Dr. Tayler Cedeño Work Phone: [facility] 05-26-2022 15:38-0500 Body height 160.[address] Tayler Cedeño Work Phone: [facility] 05-26-2022 15:38-0500 Body mass index (BMI) [Ratio] 42.7 kg/m2 Dr. Tayler Cedeño Work Phone: [facility] 05-26-2022 15:38-0500 Body temperature 96.9 [degF] Dr. Tayler Cedeño Work Phone: [facility] 05-26-2022 15:38-0500 Body weight 109.[address] Tayler Cedeño Work Phone: [facility] 05-26-2022 15:38-0500 Diastolic blood pressure 87 mm[Hg] Dr. Tayler Cedeño Work Phone: [facility] 05-26-2022 15:38-0500 Heart rate 78 /min Dr. Tayler Cedeño Work Phone: [facility] 05-26-2022 15:38-0500 Respiratory rate 18 /min Dr. Tayler Cedeño Work Phone: [facility] 05-26-2022 15:38-0500 SaO2% (BldA) [Mass fraction] 98 % Dr. Tayler Cedeño Work Phone: [facility] 05-26-2022 15:38-0500 Systolic blood pressure 138 mm[Hg] Dr. Tayler Cedeño Work Phone: [facility] 02-22-2022 08:25-0400 Body mass index (BMI) [Ratio] 41.6 kg/m2 Dr. Tayler Cedeño Work Phone: [facility] 02-22-2022 08:25-0400 Body temperature 98.6 [degF] Dr. Tayler Cedeño Work Phone: [facility] 02-22-2022 08:25-0400 Body weight 106.[address] Tayler Cedeño Work Phone: [facility] 02-22-2022 08:25-0400 Diastolic blood pressure 86 mm[Hg] Dr. Tayler Cedeño Work Phone: [facility] 02-22-2022 08:25-0400 Heart rate 71 /min Dr. Tayler Cedeño Work Phone: [facility] 02-22-2022 08:25-0400 Respiratory rate 14 /min Dr. Tayler Cedeño Work Phone: [facility] 02-22-2022 08:25-0400 SaO2% (BldA) [Mass fraction] 98 % Dr. Tayler Cedeño Work Phone: [facility] 02-22-2022 08:25-0400 Systolic blood pressure 124 mm[Hg] Dr. Tayler Cedeño Work Phone: [facility] 10-10-2021 14:49-0400 Body height 160.[address] Tayler Cedeño Work Phone: [facility] Work Phone: 10-10-2021 14:49-0400 Body mass index (BMI) [Ratio] 40.1 kg/m2 Dr. Tayler Cedeño Work Phone: [facility] Work Phone: 10-10-2021 14:49-0400 Body temperature 97.6 [degF] Dr. Tayler Cedeño Work Phone: [facility] Work Phone: 10-10-2021 14:49-0400 Body weight 102.[address] Tayler Cedeño Work Phone: [facility] Work Phone: 10-10-2021 14:49-0400 Diastolic blood pressure 72 mm[Hg] Dr. Tayler Cedeño Work Phone: [facility] Work Phone: 10-10-2021 14:49-0400 Heart rate 102 /min Dr. Tayler Cedeño Work Phone: [facility] Work Phone: 10-10-2021 14:49-0400 Respiratory rate 18 /min Dr. Tayler Cedeño Work Phone: [facility] Work Phone: 10-10-2021 14:49-0400 SaO2% (BldA) [Mass fraction] 97 % Dr. Tayler Cedeño Work Phone: [facility] Work Phone: 10-10-2021 14:49-0400 Systolic blood pressure 136 mm[Hg] Dr. Tayler Cedeño Work Phone: [facility] Work Phone: 07-04-2021 13:50-0500 Body mass index (BMI) [Ratio] 41.1 kg/m2 Dr. Tayler Cedeño Work Phone: [facility] Work Phone: 07-04-2021 13:50-0500 Body temperature 97.9 [degF] Dr. Tayler Cedeño Work Phone: [facility] Work Phone: 07-04-2021 13:50-0500 Body weight 105.[address] Tayler Cedeño Work Phone: [facility] Work Phone: 07-04-2021 13:50-0500 Diastolic blood pressure 74 mm[Hg] Dr. Tayler Cedeño Work Phone: [facility] Work Phone: 07-04-2021 13:50-0500 Heart rate 93 /min Dr. Tayler Cedeño Work Phone: [facility] Work Phone: 07-04-2021 13:50-0500 Respiratory rate 18 /min Dr. Tayler Cedeño Work Phone: [facility] Work Phone: 07-04-2021 13:50-0500 SaO2% (BldA) [Mass fraction] 97 % Dr. Tayler Cedeño Work Phone: [facility] Work Phone: 07-04-2021 13:50-0500 Systolic blood pressure 130 mm[Hg] Dr. Tayler Cedeño Work Phone: [facility] Work Phone: Encounters Encounter Date Encounter Type Care Provider Facility Start: 11-07-2024 ambulatory Marielos Torres Facilit y:[facility] Start: 09-23-2024 End: 09-23-2024 Patient encounter procedure Oksana [facility] Work Phone: Start: 09-23-2024 End: 09-23-[address] Marielos Torres DO Work Phone: [facility] Work Phone: Start: 09-23-2024 End: 09-23-2024 ambulatory Marielos Torres Facility:[facility] Start: 09-12-2024 Encounter for other preprocedural examination Pradeep Villa [facility] Start: 06-24-2024 ambulatory Oksana Reynolds NP Facil ity:[facility] Start: 04-15-2024 End: 04-15-2024 ambulatory Haseeb Sanchez [facility] Start: 04-14-2024 End: 04-14-2024 ambulatory Pradeep Villa Facility:[facility] Start: 03-12-2024 End: 03-12-2024 ambulatory Marielos Torres Facility:[facility] Start: 12-19-2023 End: 12-19-2023 ambulatory Marielos Torres Facility:[facility] Start: 07-23-2023 End: 07-23-[address] Tayler Cedeño Work Phone: [facility] Work Phone: Start: 07-23-2023 End: 07-23-[address] aTyler Cedeño Work Phone: [facility] Work Phone: Start: 07-03-2023 End: 07-03-[address] Tayler Cedeño Work Phone: [facility] Work Phone: Start: 06-19-2023 End: 06-19-[address] Tayler Cedeño Work Phone: [facility] Work Phone: Start: 06-19-2023 End: 06-19-[address] Tayler Cedeño Work Phone: [facility] Work Phone: Start: 06-01-2023 End: 06-01-[address] Tayler Cedeño Work Phone: [facility] Work Phone: Start: 01-30-2023 End: 01-30-[address] Tayler Cedeño Work Phone: [facility] Work Phone: Start: 01-30-2023 End: 01-30-[address] Tayler Cedeño Work Phone: [facility]-Outpatient Bone Densitometry Work Phone: Start: 01-17-2023 End: 01-17-[address] Tayler Cedeño Work Phone: [facility] Work Phone: Start: 12-04-2022 End: 12-04-[address] Tayler Cedeño Work Phone: [facility] Work Phone: Start: 12-04-2022 End: 12-04-[address] Tayler Cedeño Work Phone: [facility]-Outpatient Breast Imaging Work Phone: Start: 08-24-2022 End: 08-24-[address] Tayler Cedeño Work Phone: [facility] Work Phone: Start: 06-13-2022 End: 06-13-[address] Tayler Cedeño Work Phone: [facility] Work Phone: Start: 06-13-2022 End: 06-13-[address] Tayler Cedeño Work Phone: [facility] Start: 06-06-2022 Non-patient / Non-visit Dr. Zelalem Cedeño Work Phone: [facility] Start: 06-06-2022 End: 06-06-[address] Tayler Cedeño Work Phone: [facility] Work Phone: Start: 06-06-2022 End: 06-06-[address] Tayler Cedeño Work Phone: [facility]-Cardiovascular Services Start: 05-31-2022 End: 05-31-[address] Tayler Cedeño Work Phone: [facility] Work Phone: Start: 05-31-2022 End: 05-31-[address] Tayler Cedeño Work Phone: [facility]-Laboratory Start: 05-26-2022 End: 05-26-[address] Tayler Cedeño Work Phone: [facility] Start: 02-22-2022 End: 02-22-[address] Tayler Cedeño Work Phone: [facility] Start: 10-24-2021 Non-patient / Non-visit Dr. Zelalem Cedeño Work Phone: [facility] Start: 10-21-2021 End: 10-21-[address] Tayler Cedeño Work Phone: [facility]-Pulmonary Services/Neurology Start: 10-10-2021 End: 10-10-[address] Tayler Cedeño Work Phone: [facility] Start: 07-04-2021 End: 07-04-[address] Tayler Cedeño Work Phone: [facility] Start: 11-24-[address] Sadiq Cedeño Work Phone: [facility] Procedures Date Procedure Procedure Detail Performing Clinician Start: 09-23-[address] Ron Torres DO Work Phone: Start: 06-19-[address] Susy Cedeño Work Phone: Start: 01-30-2023 Dual energy X-ray absorptiometry Dr. Tayler Cedeño Work Phone: Start: 12-04-2022 Screening mammography Anton Cedeño Work Phone: Start: 06-13-[address] Susy Cedeño Work Phone: Start: 06-06-2022 Radionuclide imaging of perfusion of myocardium under exercise stress Dr. Tayler Cedeño Work Phone: Start: 05-31-2022 Plain chest X-ray Dr. Sadiq Cedeño Work Phone: Plan of Treatment Date Care Activity Detail Author Ambulatory ECG [facility] Hemoglobin A1c/Hemoglobin.total in Blood [facility] Immunizations Immunization Date Immunization Notes Care Provider Fa vandana 04-03-2021 Covid (Pfizer) Dr. Tayler Cedeño Work Phone: [facility] 09-03-2020 Covid (Pfizer) Dr. Tayler Cedeño Work Phone: [facility] 08-13-2020 Covid (Pfizer) Dr. Tayler Cedeño Work Phone: [facility] 02-17-2020 influenza, injectable,quadrivalent , preservative free, pediatric Dr. Tayler Cedeño Work Phone: [facility] 02-17-2020 Flucelvax Quad (PF) (flu vac qs 2020(4 yr up)CD(PF)) 60 mcg ([address] Tayler Cedeño Work Phone: [facility] Work Phone: Payers Date Payer Category Payer Unknown [id number] 2023 Self-pay [id number] 2015 Unknown [id number] Unknown [id number] 2.16.8 [id number] Unknown [id number] 2.16.8 [id number] Unknown [id number] 2.16.8 [id number] Unknown [id number] 2.16.8 [id number] Unknown [id number] 2.16.8 [id number] Unknown [id number] 2.16.8 [id number] Unknown [id number] 2.16.8 [id number] Unknown [id number] 2.16.8 [id number] Social History Date Type Detail Facility Start: 10-10-2021 End: 07-23-2023 Tobacco smoking status COIS Unknown if ever smoked [facility] Start: 11-24-[address] [facility] Start: 11-24-[address] [facility] Start: 11-24-[address] [facility] Start: 1960 Sex Assigned At Female [facility] Start: 09-12-2024 Sex Female (finding) [facility] Start: 09-23-2024 Tobacco smoking stat us COIS Ex-smoker (finding) [facility] Clinical Notes 08-11-2020 to 09-23-2024 Note Date & Type Note Facility 09-23-2024 Radiology Diagnostic study note [facility] Imaging Services [address], [place] [address] Low Dose CT Lung Screening MR#: [id number] Acct: [id number] Name: LONG ALMONTE Rep #: [id number] : 1960 F 63 From: Tonya Bernard MD PCP: Dr. Marielos Torres, DO Status: RE G CLI Study:Low Dose CT Lung Screening Date of Exam : 09/23/24 Exam# [id number] Ordering Dr: Oksana Baca NP, NP-Emily PROCEDURE: LOW DOSE CT LUNG SCREENING 09/23/2024 REASON FOR EXAM: LUNG CANCER SCREENING TECHNIQUE: Low Dose CT Lung screening without contrast. Coronal and Sagittal reconstructionseries were provided. One or more dose reduction techniques were used (e.g., Automated exposure control, adjustment of the mA and/or kV according to patient size, use of iterative reconstruction technique). [facility] COMPARISON: CT chest 06/19/2023 and 06/09/2022 FINDINGS: PULMONARY NODULES: (Only nodules >3mm are reported) Hardware:None Lymph Nodes:No suspicious adenopathy. Heart and Vasculature:No cardiomegaly. Minimal atherosclerotic calcifications.Atherosclerotic calcifications of the thoracic aorta. Thoracic aorta and pulmonary arteries have normal contours; noncontrast technique limits evaluation. Coronary Artery Calcifications: Minimal Lungs and Airways: Central airways are patent without endobronchial lesions. Nosuspicious pulmonary nodule. No focal consolidation. No pneumothorax. Upper Abdomen:Stable 4.2 cm left hepatic lobe simple cyst. Partially imaged exophytic right upper pole simple renal cyst. Bones:Degenerative changes of the thoracic spine. Esophagus is nondilated. CT/Low Dose CT Lung Screening IMPRESSION: No suspicious pulmonary nodule or adenopathy. Lung-RADS Category: 1 NEGATIVE. RECOMMEND 12-MONTH SCREENING LDCT. Other Significant Findings: None. Reading Location: [facility] CC: CARMEN-Emily Reynolds; Dr. Marielos Torres, DO ~ Securities Teller: Signed [facility] 09-23-2024 Evaluation note Diagnosis Onset Date Resolution Encounter for screening for malignant neoplasm of lung in former smoker who acute September 23, 2024 12 :18pm History of tobacco use acute y 2024 12:18pm [facility] Work Phone: 1(341) 645-410403-25-2021 NoteHNO ID: [id number] Author: Aristides Hopson MA Service: ? Author Type: ? Type: Progress Notes Filed: 08/12/2020 8:29 AM Note Text: Pt responded and noted that she is no longer following with Dr. Regalado as PCP. Chart has been updated. Aristides Hopson [facility]03-24-2021 NoteHNO ID: [id number] Author: Aristides Hopson MA Service: ? Author Type: ? Type: Progress Notes Filed: 08/11/2020 7:32 PM Note Text: POPULATION HEALTH NAVIGATION OUTREACH Action/FYI Pt has been sent a SmartSh[employer] message notifying her that she is due for a f/u in regards to HTN/Lipids. Pt is active on SmartShoot with most recent ly active on 07/17/20. Pt has been notified to contact office by SmartShoot or phone to setup an appt with PCP or CORPORATE QUALITY MANAGER. Contact made with patient or family member? YES Pt identified by name and : NA Outreach Outcome/Action [employer] message sent Reason for Outreach Care Gap or Scheduling/Wellness visits Payer: Payor: [facility] / Plan: [place] PREMIER / Product Type: PPO / Care [...] Sent to Practice: YES Navigation Signature: Aristides Hopson MA August 11, 2020 7:28 [facility]03-24-2021 NotePatient Outreach (FAMPWS) LONG ALMONTE ([id number]) 1960 F Date Time Provider Department 08/11/20 ARISTIDES HOPSON) DEMETRICE During your visit today, we recorded the following information about you: Aristides Hopson MA 08/11/2020 7:32 PM Signed POPULATION HEALTH NAVIGATION OUTREACH Action/FYI Pt has been sent a SmartShoot message notifying her that she is due for a f/u in regards to HTN/Lipids. Pt is active on SmartShoot with most recent ly active on 07/17/20. Pt has been notified to contact office by SmartShoot or phone to setup an appt with PCP or CORPORATE QUALITY MANAGER. Contact made with patient or family member? YES Pt identified by name and : NA Outreach Outcome/Action [employer] message sent Reason for Outreach Care Gap or Scheduling/Wellness visits Payer: Payor: [facility] / Plan: [place] [employer]MIER / Product Type: PPO / Care [...] Sent to Practice: YES Navigation Signature: Aristides Hopson MA August 11, 2020 7:28 PM Aristides Hopson MA 08/12/2020 8:29 AM Signed Pt responded and noted that she is no longer following with Dr. Regalado as PCP. Chart has been updated. Aristides Hopson MA Allergies As of Date: 08/11/2020 Noted Allergy Reaction METRONIDAZOLE 02/05/2018 8 - GI Upset Date Reviewed: 05/01/2019 Reviewed by: Cleo Wilcox Ma - Fully Assessed Reason for Visit: PHMA/Care Gap Outreach [[id number]] Cmt: HTN/Lipids Prescriptions as of 08/11/2020 Sig: [...] 40-49.9 (morbid obesity*08/22/2017 Encounter Status:Closed by ARISTIDES HOPSON MA on 08/11/20[facility] Chief complaint+Reason for visit Narrative* Chief Complaint COVID 19 SCREENING Reason for Visit COVID-19 [facility] Work Phone: evaluation note* Diagnosis Onset Date Resolution Status Benign essential hypertension chronic Hypothyroidism chronic Obesity chronic COPD (chronic obstructive pulmonary disease) chronic Hypertension chronic Obesity chronic [facility] Work Phone: Evaluation note* Diagnosis Onset Date Resolution Status Anemia acute Palpitations acute Benign essential hypertension chronic Hypothyroidism chronic [facility] Work Phone: Evaluation note* Diagnosis Onset Date Resolution Status Anemia acute Palpitations acute Benign essential hypertension chronic Hypothyroidism chronic [id number] acute History of tobacco use acute [facility] Work Phone: Evaluation note* Diagnosis Onset Date Resolution Status [id number] acute History of tobacco use acute [facility] Work Phone: Evaluation note* Diagnosis Onset Date Resolution Status COVID-[address] [facility] Work Phone: Evaluation note* Diagnosis Onset Date Resolution Status Abnormal biopsy result acute Post-menopausal acute Hypertension chronic Hypothyroidism chronic [facility] Work Phone: Evaluation note* Diagnosis Onset Date Resolution Status Benign essential hypertension chronic Hypothyroidism chronic Pre-diabetes chronic Thyroid cancer chronic [id number] acute History of tobacco use acute [facility] Work Phone: Evaluation note* Diagnosis Onset Date Resolution Status Benign essential hypertension chronic Hypothyroidism chronic Pre-diabetes chronic Thyroid cancer chronic [id number] acute History of tobacco use acute Bilateral leg cramps acute Benign essential hypertension chronic Borderline diabetes mellitus chronic Hyperlipidemia chronic Hypothyroidism chronic [facility] Work Phone: Evaluation noteNo assessment information available [facility] Work Phone: Reason for referral (narrative)No reason for referral [facility] Work [facility]: Summary Purpose Family History No Family History Records Found Relationship Condition Age at Onset Recorded Date/T chitra mother Malignant neoplasm of breast Unknown Cardiac disease Unknown Chronic obstructive pulmonary disease Unk nown father Cardiac disease Unknown Hypertension Unknown Cerebrovascular accident (CVA) Unknown Hyperlipidemia Unknown Malignant neoplasm of lung Unknown Diabetes mellitus Unknown sister Disorder of thyroid Unknown Malignant neoplasm of breast Unknown Advance Directives No Advanced Directives Records Found Advance Directive Response Recorded Date/ Time Advance Directives No December 08 9:06am Living Will No January 12 1 10:10am Power of Supervisor Housecleaner No January 12 021 10:10am Advance Directive Response Recorded Date/ Time Advance Directives No December 08 8:06am Living Will No January 12 1 9:10am Power of Supervisor Housecleaner No January 12 9:10am Advance Directive Response Recorded Date/ Time Advance Directives No December 08 9:06am Chief Complaint and Reason for Visit Chief Complaint 3 M FU 3 M FU COPD COPD Reason for Visit Benign essential hyp ertension Hypothyroidism Obesity COPD (chronic obstructive pulmonary disease) Hypertension Obesity Chief Complaint TINGLING OF FEET AND LEGS 1 Y FU E ORDERS DYSPENA DYSPENA Reason for Visit Anemia Palpitations Benign essential hypertension Hypothyroidism Chief Complaint TINGLING OF FEET AND LEGS 1 Y FU E ORDERS DYSPENA DYSPENA Lung cancer screning SMOKER Reason for Visit Anemia Palpitations Benign essential hypertension Hypothyroidism [id number] History of tobacco use Chief Complaint 1 Y FU E ORDERS DYSPENA DYSPENA Lung cancer screning SMOKER Reason for Visit [id number] History of tobacco use Chief Complaint SCREENING 6 M FU SCREENING Reason for Visit Abnormal biopsy resu lt Post-menopausal Hypertension Hypothyroidism Chief Complaint 1 Y FU Lung Cancer Screening TOBACCO ABUSE Reason for Visit Benign essential hyp ertension Hypothyroidism Pre-diabetes Thyroid cancer [id number] History of tobacco use Chief Complaint 1 Y FU Lung Cancer Screening TOBACCO ABUSE CONCERN FOR SINUS INFECTION 6 M FU Reason for Visit Benign essential hyp ertension Hypothyroidism Pre-diabetes Thyroid cancer [id number] History of tobacco use Bilateral leg cramps Benign essential hypertension Borderline diabetes mellitus Hyperlipidemia Hypothyroidism Chief Complaint Admit Date LUNG CANCER SCREENING September 23, 2024 12:1 8pm Z12.2 CANCER SCREEN September 23, 2024 1:05pm Reason for Visit Admit Date Encounter for screening for malignant neoplasm of lung in former smoker who September 23, 2024 12:18pm History of tobacco use September 23, 2024 12: 18pm Additional Source Comments INFORMATION SOURCE (unrecogn ized section and content) DATE CREATED AUTHOR 07/11/2021 [facility] DATE CREATED AUTHOR AUTHOR'S ORGANIZ ATION 10/29/2024 [facility] Goals (unrecognized section and content) Goals may be documented in a n alternate sectionGoals may be documented in an alternate sectionGoals may be documented in an alternate sectionGoals may be documented in an alternate sectionGoals may be documented in an alternate sectionGoals may be documented in an alternate sectionGoals may be documented in an alternate sectionGoals may be documented in an alternate sectionGoals may be documented in an alternate sectionGoals may be documented in an alternate section Care Teams (unrecognized sec tion and content) Team Status: Active Member Role Status Dates Dr. Edison Regalado MD Family Provider Active Dr. Tayler Cedeño MD Primary Care Provider Active Team Status: Inactive Member Role Status Dates Dr. Tayler Cedeño MD Primary Care Provider, Refer ring Provider Active Dr. Oscar Hong MD Attending Provider Active Team Status: Inactive Member Role Status Dates Dr. Tayler Cedeño MD Primary Care Provider, Refer ring Provider Active Edison Ramires CORPORATE QUALITY MANAGER, CORPORATE QUALITY MANAGER-C Attending Provider Active Team Status: Active Member Role Status Dates Dr. Tayler Cedeño MD Primary Care Provider Active Dr. Killian Ball MD Attending Provider, Referring Provider, Other Provider Active Team Status: Inactive Member Role Status Dates Dr. Tayler Cedeño MD Primary Care Provider Active Edison Ramires CORPORATE QUALITY MANAGER, CORPORATE QUALITY MANAGER-C Attending Provider, Referring Prov ider Active Team Status: Active Member Role Status Dates Dr. Tayler Cedeño MD Primary Care Provider Active Dr. Killian Ball MD Attending Provider, Referring Pro vider Active Team Status: Inactive Member Role Status Dates Dr. Tayler Cedeño MD Primary Care Provider Active Dr. Killian Ball MD Attending Provider, Referring Pro vider Active Team Status: Inactive Member Role Status Dates Dr. Tayler Cedeño MD Primary Care Provider, Refer ring Provider Active Oksana Reynolds CORPORATE QUALITY MANAGER, CORPORATE QUALITY MANAGER-C Attending Provider Active Team Status: Active Member Role Status Dates Dr. Tayler Cedeño MD Primary Care Provider Active Oksana Reynolds CORPORATE QUALITY MANAGER, CORPORATE QUALITY MANAGER-C Attending Provider, Referring Provider Active Team Status: Inactive Member Role Status Dates Dr. Tayler Cedeño MD Primary Care Provider Active Oksana Reynolds CORPORATE QUALITY MANAGER, CORPORATE QUALITY MANAGER-C Attending Provider, Referring Provider Active Team Status: Inactive Member Role Status Dates Dr. Tayler Cedeño MD Primary Care Provider, Refer ring Provider Active Alex Mohamud PA, PA Attending Provider Active Team Status: Inactive Member Role Status Dates Dr. Tayler Cedeño MD Primary Care P roadrianader, Attending Provider, Referring Provider Active Team Status: Inactive Member Role Status Dates Dr. Tayler Cedeño MD Primary Care Provider, Atten ding Provider Active Team Status: Active Member Role Status Dates Dr. Marielos Torres DO Primary Care Provider Active Team Status: Inactive Member Role Status Dates Dr. Marielos Torres DO Primary Care Provider Active Start: September 23, 2024 End: September 23, 2024 Dr. Marielos Torres DO Referring Provider Active Start: September 23, 2024 End: September 23, 2024 Oksana Reynolds CORPORATE QUALITY MANAGER, CORPORATE QUALITY MANAGER-C Attending Provider Active Start: September 23, 2024 End: September 23, 2024 Team Status: Inactive Member Role Status Dates Dr. Marielos Torres , Primary Care Provider Active Start: September 23, 2024 End: September 23, 2024 Oksana Reynolds NP, NP-C Attending Provider Active Start: September 23, 2024 End: September 23, 2024 Oksana Reynolds NP CORPORATE QUALITY MANAGER-C Referring Provider Active Start: September 23, 2024 End: September 23, 2024 FOR RECORDS PERTAINING TO PATIENTS WHO ARE [...] BE BASED ON THE PRIMARY CLINICAL RECORDS. [facility] [employer] [facility]. provides no warranty or guarantee of the accuracy or completeness of information in this document.
== END | disposition home or self-care (01) ==
LOC: PSN 06:43
PROVIDERS: PCP Internal Medicine; Referring Provider Internal Medicine; Visit Provider Internal Medicine
DX: I48.91 Unspecified atrial fibrillation (principal)
CPT/HCPCS: 93225; 93226

== ENCOUNTER → 2025-01-16 | Outpatient (CLI) | payer BC, SELFPAY ==
--- NOTE | 2025-01-16 12:02 | BI_ITS ---
EXAM: SCRN MAMM (CAD)W/MIGUEL BILAT DATE: 01/16/2025 CLINICAL HISTORY: F, Age 64 y/o , SCREENING FOR BREAST CANCER TECHNIQUE: Procedure Code: [id number] Modality: MG Procedure: SCRN MAMM (CAD)W/MIGUEL BILAT COMPARISON: Prior exam(s) were compared FINDINGS: TISSUE DENSITY: There are scattered areas of fibroglandular density. Bilateral Breast Mammographic Findings: No suspicious masses, calcifications or other abnormalities are identified. BI/SCRN MAMM (CAD)W/MIGUEL BILAT IMPRESSION: No mammographic evidence of malignancy OVERALL FINAL ASSESSMENT BI-RADS 1: NEGATIVE. RECOMMENDATION: Routine annual follow-up in 1 Year A letter with findings and recommendations will be mailed to the patient. Reading Location: [id number]
== END | disposition home or self-care (01) ==
LOC: OPBI 12:01
PROVIDERS: PCP Internal Medicine; Referring Provider Internal Medicine; Visit Provider Internal Medicine
DX: Z12.31 Encounter for screening mammogram for malignant neoplasm of breast (principal)
CPT/HCPCS: 77063; 77067

== ENCOUNTER → 2025-02-27 | Outpatient (CLI) | payer BC, SELFPAY ==
[2025-02-27 07:46] LABS: Hematocrit 39.0 % (37-47); Hemoglobin 13.6 g/dL (12.0-15.0); Mean Corp Hgb Conc 34.9 g/dL (32-36); Mean Corpuscular Volume 92.9 fL (81-99); Mean Platelet Vol. 11.0 fl (6.2-12.0); Platelet Count 232 K/mm3 (150-450); RBC Distribution Width CV 11.9 % (11.6-14.6); RBC Distribution Width SD 40.0 fl (35.1-43.9); Red Blood Count 4.20 M/mm3 (4.2-5.4); White Blood Count 5.6 K/mm3 (4.4-11.0)
[2025-02-27 08:42] LABS: Anion Gap 10 (5-15); BUN 17 mg/dL (4-19); BUN/Creat Ratio 21.4 RATIO (10-20); Calcium,Total 9.1 mg/dL (7.6-11.0); Carbon Dioxide 24.4 mmol/L (21.0-32.0); Chloride 104 mmol/L (98-108); Glucose 102 mg/dL (70-99); Potassium 4.1 mmol/L (3.3-5.1)
== END | disposition home or self-care (01) ==
LOC: LAB 07:26
PROVIDERS: PCP Internal Medicine; Referring Provider Otolaryngology; Visit Provider Otolaryngology
DX: Z01.818 Encounter for other preprocedural examination (principal)
CPT/HCPCS: 36415; 80048; 85027

== ENCOUNTER → 2025-03-16 | Outpatient (CLI) | payer BC, SELFPAY ==
--- NOTE | 2025-03-16 09:50 | LES_PTH ---
PATIENT: LONG ALMONTE LOC: [facility] U#:[id number] AGE/SX: 64/F ROOM: RE03/16/[address]: Dr. Pradeep Villa MD : 1960 BED: DIS: 03/16/2025 SPEC #: [id number] RECD: 03/16/25 15:04 STATUS: WANDY REDebora #: [id number] JOSE: 03/16/25 09:[address]: Pradeep Villa DEPT: SURGICAL PATHOLOGY RECD BY: Nito Zhou ENTERED: 03/17/25 08:56 SP TYPE: Lesion OTHR DR: Dr. 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 COMMENT Selected slides/images were reviewed in intradepartmental consultation by Dr Robyn Walsh (head and neck pathology division, [facility]). MICROSCOPIC DESCRIPTION Slides are reviewed. GROSS DESCRIPTION A. Received in formalin labeled the patient's name and date of is a 2.1 x 1.0 cm hennessy-bateman, slightly wrinkled and granular portion of soft tissue excised to a depth ranging from <0.1 cm to 0.4 cm. There is a short suture designated as superior and a long suture designated as anterior. The specimen is inked as follows: Superior: RedInferior: BlueAnterior: GreenPosterior: OrangeDeep: Black The specimen is serially sectioned from anterior to posterior and sequentially submitted in 2 cassettes as follows: A1: Anterior halfA2: Posterior half MT 03/17CPT:[id number]
== END | disposition home or self-care (01) ==
LOC: LABSPEC 15:24
PROVIDERS: PCP Internal Medicine; Referring Provider Otolaryngology; Visit Provider Otolaryngology
DX: K14.9 Disease of tongue, unspecified (principal)
CPT/HCPCS: 88305

== ENCOUNTER → 2025-03-23 | Outpatient (CLI) | payer BC, SELFPAY ==
[2025-03-23 13:51] LABS: Cholesterol 157 mg/dL (<=200); Low Density Lipoprotein Calc. 87 mg/dL; Triglycerides 85 mg/dL; Very Low Density Lipoprotein 17 mg/dL (5-40); cholesterol:hdl ratio screen 2.93
== END | disposition home or self-care (01) ==
LOC: LAB 12:34
PROVIDERS: PCP Internal Medicine; Referring Provider Internal Medicine; Visit Provider Internal Medicine
DX: R73.03 Prediabetes (principal); E78.5 Hyperlipidemia, unspecified
CPT/HCPCS: 36415; 80061; 83036